=== PATIENT | female | born 1940 | race Caucasian/White ===

== ENCOUNTER 2023-07-18 10:38 | Emergency (ER) | payer MEDICARE, SELFPAY ==
--- NOTE | 2023-07-18 10:55 | USCV_ITS ---
MukundMarie bullard Age: 83 Gender: F : 1940 Exam Date: 07/18/2023 11:16 Ordering Phys: Ashleigh Hui MD Technologist: Johnny Pearson [place]am [place] [facility] [place]ication: red swollen left leg PROCEDURES: Venous duplex imaging was performed in only the left lower extremity. The following venous structures were evaluated: common femoral vein, profunda vein, proximal portion of the greater saphenous vein, superficial femoral vein, and the popliteal vein. In addition, the posterior tibial and peroneal trunk were evaluated. Serial compression, augmentation maneuvers, and spectral Doppler flow evaluation were performed. FINDINGS: Normal 2-D Doppler and augmentation and compressibility throughout the lower extremity venous structures. Additional imaging through the proximal calf veins also reveals no thrombus. Limited evaluation of the greater saphenous vein is patent with no thrombus. There appears to be a complex bakers cyst like area within the left pop fossa. CONCLUSIONS No evidence of left lower extremity DVT. Popliteal cyst measuring 3.8 x 1.4 x 4.8cm with internal debris Tono Montana MD (Electronically Signed) Final Date: 18 July 2023 12:32 S
[2023-07-18 11:44] VITALS: BP 182/96; PULSE 82; RESP 18; TEMP 36.6; O2SAT 92; BMI 40.8
[2023-07-18 12:17] VITALS: BP 139/74; PULSE 62; O2SAT 95
--- NOTE | 2023-07-18 12:17 | ED_ITS ---
HPI - Extremity Problem General: Chief complaint: Extremity Problem,Nontraumatic Stated complaint: left leg pain, red Time Seen by Provider: 07/18/23 12:10 History of Present Illness: 83-year-old female who presents the [facility] room with left distal leg pain redness and swelling. This been present for couple of days now. She has concern for DVT because her mother from a pulmonary embolism she tells me. She had an ultrasound venous duplex of her left leg in the waiting room and this showed no DVT. With further investigation asked her about the scratch that in the midst of this redness and she says her cat had scratched her. No systemic fever. No altered mental status. No chest pain. No cough. No abdominal pain. No nausea or vomiting. Review of Systems Narrative: Constitutional symptoms: Negative except as documented in HPI. Skin symptoms: Negative except as documented in HPI. Eye symptoms: Negative except as documented in HPI. ENMT symptoms: Negative except as documented in HPI. Respiratory symptoms: Negative except as documented in HPI. Cardiovascular symptoms: Negative except as documented in HPI. Gastrointestinal symptoms: Negative except as documented in HPI. Genitourinary symptoms: Negative except as documented in HPI. Musculoskeletal symptoms: Negative except as documented in HPI. Neurologic symptoms: Negative except as documented in HPI. Psychiatric symptoms: Negative except as documented in HPI. Endocrine symptoms: Negative except as documented in HPI. Physical Exam Narrative: EXAM NARRATIVE: General: Alert, no acute distress. Skin: Circumferential area of erythema, edema and warmth covering the bottom half of her left lower leg. There is a scabbed over abrasion in the middle. This appears cellulitic. Head: Normocephalic, atraumatic. Neck: Supple, trachea midline. Eye: Extraocular movements are intact. Ears, nose, mouth and throat: mucosa moist. Cardiovascular: Regular, Normal peripheral perfusion. Respiratory: Lungs are clear to auscultation, respirations are non-labored, radha ath sounds are equal, Symmetrical chest wall expansion. Gastrointestinal: Soft, Nontender, Non distended, Normal bowel sounds. Musculoskeletal: Normal ROM, no deformity. Neurological: Alert and oriented, No focal neurological deficit observed. Psychiatric: Cooperative, appropriate mood & affect. Course Vital Signs: Vital signs: Vital Signs Temperature 97.8 F 07/18/23 11:44 Pulse Rate 82 07/18/23 11:44 Respiratory Rate 18 07/18/23 11:44 Blood Pressure 182/96 07/18/23 11:44 Pulse Oximetry 92 07/18/23 11:44 Oxygen Delivery Me thod Room Air 07/18/23 11:44 MDM - Extremity (Nontraumatic) Medical Decision Making Ultrasound was ordered to rule out DVT. This was negative for DVT. Patient appears to have a cellulitis. This is fairly extensive. I am going to give her a single dose of IV antibiotics here and send her home on Augmentin with instructions to return if she does not improve or worsens All radiology interpretation(s) finalized by discharge Other Data Assessment and plan: - IV Unasyn in the emergency room. Home on Augmentin. - Discharged home - Discussed findings and plan with patient. Answered any questions. - All imaging was reviewed and interpreted personally by myself, the ER physician. - Evaluation and treatment of this problem were appropriate in the emergency setting Discharge Plan Discharge Patient Disposition: Home Clinical Impression: Cellulitis, Cat scratch Condition: Stable Prescriptions: New amoxicillin-pot clavulanate 875-125 mg tablet 1 tab PO BID 10 Days Qty: 20 0RF Discharge Orders: Discharge ED (Routine); Ordered 07/18/23 Ordered By: Ashleigh Hui Discharge Diet: Usual diet Discharge Activity: Resume usual activity Patient Instructions: Cellulitis (ED), Opioid Safety, Pain Management Activity Restrictions/Additional Instructions: Return to your primary provider or to the emergency room if this does not improve after a few days or if it worsens. You have been screened and evaluated and felt safe for discharge. Health conditions do change or evolve sometimes and as such it is important that you follow up with your Primary Doctor to be re checked, 3-5 days is a general good time frame for follow up. You are always welcome to return to the ED for re assessment if your symptoms are worsening or you have new concerns Coding Level of Care Code ED 3Rd Pressman for Ruth Rashid
[2023-07-18] MEDS: ampicillin-sulbactam 3 GM in sodium chloride 0.9% (plus) 50 ML IV (12:28)
--- NOTE | 2023-07-18 12:47 | PC.PHAR ---
pt states she takes care of her own medications-pt states she takes atenolol 100mg daily prn
[2023-07-18 12:54] VITALS: BP 139/74; PULSE 63; O2SAT 99
== END 2023-07-18 12:55 | disposition home or self-care (01) ==
PROVIDERS: Emergency Provider Emergency Medicine
DX: S80.812A Abrasion, left lower leg, initial encounter (principal); L03.116 Cellulitis of left lower limb; W55.03XA Scratched by cat, initial encounter
CPT/HCPCS: 93971; 96365; 99284; J0295

== ENCOUNTER → 2024-05-13 09:42 | Outpatient (BNVA) | payer MEDICARE, SELFPAY | PROVIDERS: PCP Registered Nurse; Visit Provider Student in an Organized Health Care Education/Training Program | DX: M25.561 Pain in right knee (principal); M25.562 Pain in left knee; M17.0 Bilateral primary osteoarthritis of knee | CPT/HCPCS: 73560; 73565 ==

== ENCOUNTER 2024-05-13 10:48 | Outpatient (CLI) | payer MEDICARE, SELFPAY | END 2024-05-13 10:49 | disposition home or self-care (01) | LOC: SPT 10:49 | PROVIDERS: PCP Registered Nurse; Visit Provider Student in an Organized Health Care Education/Training Program | DX: Z46.89 Encounter for fitting and adjustment of other specified devices (principal); M17.0 Bilateral primary osteoarthritis of knee | CPT/HCPCS: L1852 ==

== ENCOUNTER → 2024-07-14 09:30 | Outpatient (BNVA) | payer MEDICARE, SELFPAY | PROVIDERS: PCP Registered Nurse; Visit Provider Physician Assistant | DX: M17.0 Bilateral primary osteoarthritis of knee (principal) | CPT/HCPCS: 20610; 99213; J7318 ==

== ENCOUNTER → 2024-10-26 10:34 | Outpatient (BNVA) | payer MEDICARE, SELFPAY | PROVIDERS: PCP Registered Nurse; Visit Provider Student in an Organized Health Care Education/Training Program | DX: M17.0 Bilateral primary osteoarthritis of knee (principal) | CPT/HCPCS: 99214 ==

== ENCOUNTER 2024-11-04 07:22 | Outpatient (CLI) | payer MEDICARE, SELFPAY ==
[2024-11-04 07:48] LABS: Hematocrit 40.3 % (36-47); Hemoglobin 12.60 g/dL (11.27-16.99); Mean Corpuscular HGB Conc 31.3 g/dL (30-55); Mean Corpuscular Hemoglobin 30.7 pg (27-33); Mean Corpuscular Volume 98.1 fl (85-98); Nucleated Red Blood Cells % 0 %; Platelet Count 280 10^3/cmm (157-399); Red Blood Count 4.11 10^6/uL (3.85-5.65); White Blood Count 8.59 10^3/uL (3.29-11.43)
[2024-11-04 07:49] LABS: Glucose Urine UA Negative (Normal); Nitrate Urine Negative (Negative); Specific Gravity, Urine 1.014 (1.005-1.030)
[2024-11-04 07:54] LABS: Add Urine Microscopic? YES
[2024-11-04 08:07] LABS: Alanine Aminotransferase 10 U/L (0-33); Albumin Level 4.0 g/dL (3.5-5.2); Alkaline Phosphatase 97 U/L (35-105); Aspartate Amino Transferase 19 U/L (0-32); Blood Urea Nitrogen 24 mg/dL (8-23); Calcium 9.6 mg/dL (8.5-10.5); Carbon Dioxide 29 mmol/L (22-29); Chloride 102 mmol/L (98-107); Globulin 3.5 g/dL (1.3-4.6); Glucose 90 mg/dL (65-115); Osmolality Calculated 298 mOsm/kg (285-295); Sodium 142 mmol/L (136-145); Total Protein 7.5 g/dL (6.6-8.7)
--- NOTE | 2024-11-04 08:15 | CT_ITS ---
WS: [id number] CT RIGHT knee, noncontrast HISTORY: RIGHT TOTAL KNEE ARTHROPLASTY TECHNIQUE: Protocol for [facility] total knee replacement has been obtained. This includes axial imaging through the RIGHT hip, RIGHT knee and RIGHT ankle. DLP: 906.83 mGy.cm COMPARISON: None available. Hips: Degenerative air in the SI joints. Minimal narrowing at the hips. No destructive bone lesions. Circumferential calcified plaque in the SFA and deep profunda. RIGHT knee: Tricompartment moderate to severe arthritis. Hypertrophic osteophytes. No fracture. Slight lateral subluxation of the patella. No significant joint effusion. Heavy calcification in the popliteal artery. RIGHT ankle: No acute fractures. 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 CT/CT knee RT [facility] [id number] IMPRESSION: CT imaging provided for [facility] robotic total knee replacement.
== END 2024-11-04 07:23 | disposition home or self-care (01) ==
LOC: RAD 07:24
PROVIDERS: PCP Registered Nurse; Visit Provider Student in an Organized Health Care Education/Training Program
DX: Z01.818 Encounter for other preprocedural examination (principal); M17.11 Unilateral primary osteoarthritis, right knee
CPT/HCPCS: 36415; 73700; 80053; 81001; 85025

== ENCOUNTER 2024-11-12 08:07 | Outpatient (RCR) | payer MEDICARE, SELFPAY | END 2024-12-12 23:59 | disposition home or self-care (01) | LOC: WPT 08:07 | PROVIDERS: PCP Registered Nurse; Visit Provider Student in an Organized Health Care Education/Training Program | DX: Z47.1 Aftercare following joint replacement surgery (principal); Z96.651 Presence of right artificial knee joint | CPT/HCPCS: 97161 ==

== ENCOUNTER → 2024-11-22 10:37 | Outpatient (BNVA) | payer MEDICARE, SELFPAY | PROVIDERS: PCP Registered Nurse; Visit Provider Family Medicine | DX: Z01.818 Encounter for other preprocedural examination (principal); R00.1 Bradycardia, unspecified; I44.0 Atrioventricular block, first degree | CPT/HCPCS: 93005 ==

== ENCOUNTER 2024-12-06 14:02 | Observation (INO) | payer MEDICARE, SELFPAY ==
[2024-12-06] VITALS (16 sets, daily range): BP systolic 100–142; BP diastolic 48–78; PULSE 55–71; RESP 16–19; TEMP 36.4–37.4; O2SAT 88–98; BMI 39.4
--- NOTE | 2024-12-06 09:15 | P.ANESASSM_ITS ---
Pre-Anesthetic Assessment Height/Weight: Height 5 ft 2 in Preop Diagnosis: knee arthritis Operation Date: 12/06/24 11:35 Proposed Procedures p Mitchell Robot Total Knee Arthroplasty(Right) - Nas Roman DO Was Beta Robert taken within 24 hours: Yes Was Clonidine taken within 24 hours: N/A Social Tobacco and No alcohol Exam alert, oriented x 3, clear to auscultation bilaterally and regular rate & rhythm Airway Submandibular: within normal limits Cervical ROM: within normal limits Mallampati: Class II Dentition: false Anesthetic Plan ASA status: 3 Anesthesia: General Other: No prior issues with anesthesia NPO since yesterday evening History of hypertension on amlodipine and atenolol Denies any pulmonary issues Labs reviewed and acceptable for procedure EKG sinus bradycardia with first-degree AV block Plan for general anesthesia Medications/Allergies Home Medications ?Medication ?Instructions ?Recorded ?Confirmed ?Last Taken ?Type amlodipine 5 mg tablet 5 mg PO QAM 07/18/23 5 12/06/24 History atenolol 100 mg tablet 100 mg PO DAILY PRN Blood Pr essure 07/18/23 12/06/24 12/06/24 History dorzolamide 22.3 mg-timolol 6.8 1 drp ophthalmic (eye) BID 07/18/23 12/02/24 Unknown History mg/mL eye drops latanoprost 0.005 % eye drops 1 drp ophthalmic (eye) B EDTIME 07/18/23 12/02/24 12/01/24 History oxybutynin chloride 5 mg tablet 5 mg PO TID PRN unknow n 07/18/23 12/02/24 11/22/24 History propylene glycol 0.6 % eye drops 1 drp ophthalmic (eye ) QID 07/18/23 12/02/24 Unknown History (Systane Complete) Left and Right Knee Medial #1 ea 05/13/24 10/26/24 Unk nown Rx Hospital Admissions Officer Brace bupropion HCl 150 mg 24 hr tablet, 150 mg PO DAILY 06/0812/02/24 11/25/24 History extended release Allergies Allergy/AdvReac Type Severity Reaction Status Date / Time fexofenadine (From Kirti) Allergy Unresponsiv Verified 12/02/24 14:27 e loratadine (From Claritin) Allergy Unresponsiv Verified 12/02/24 14:27 e [facility] Anesthesia Social History Smoking and tobacco/nicotine status: never used tobacco/nicotine Data Anesthesia 12/06/24 09:25 12/06/24 09:25
[2024-12-06] MEDS: acetaminophen 1,000 MG/100 ML PIGGYBACK 400 MG IV ×2 (09:38→17:10)
[2024-12-06 09:42] LABS: Hematocrit 40.7 % (36-47); Hemoglobin 13.00 g/dL (11.27-16.99); Mean Corpuscular HGB Conc 31.9 g/dL (30-55); Mean Corpuscular Hemoglobin 30.7 pg (27-33); Mean Corpuscular Volume 96.2 fl (85-98); Nucleated Red Blood Cells % 0 %; Platelet Count 274 10^3/cmm (157-399); Red Blood Count 4.23 10^6/uL (3.85-5.65); White Blood Count 9.00 10^3/uL (3.29-11.43)
[2024-12-06 09:56] LABS: Anion Gap 17.1 (5-19); Blood Urea Nitrogen 19 mg/dL (8-23); Calcium 9.7 mg/dL (8.5-10.5); Carbon Dioxide 27 mmol/L (22-29); Chloride 102 mmol/L (98-107); Creatinine Clr Calc Pharmacy 55.0378; Glucose 115 mg/dL (65-115); Osmolality Calculated 297 mOsm/kg (285-295); Potassium 4.1 mmol/L (3.5-5.1); Sodium 142 mmol/L (136-145)
--- NOTE | 2024-12-06 10:10 | W.PM.OPSFHP ---
Same Day Surgery H&P Indication for Procedure/HPI DATE OF PROCEDURE: December 06, 2024 CHIEF COMPLAINT/INDICATIONFOR SURGICAL PROCEDURE: Right knee DJD PREOP DIAGNOSIS: Right knee DJD PLANNED PROCEDURE: Operation Date: 12/06/24 11:35 Proposed Procedures p Mitchell Robot Total Knee Arthroplasty(Right) - Nas Roman, DO Medications/Allergies* Home Medications ?Medication ?Instructions ?Recorded ?Confirmed ?Type amlodipine 5 mg tablet 5 mg PO QAM 07/18/23 12/06/24 History atenolol 100 mg tablet 100 mg PO DAILY PRN Blood Pressure 07/18/23 12/06/24 History dorzolamide 22.3 mg-timolol 6.8 1 drp ophthalmic (eye) BID 07/18/23 12/02/24 History mg/mL eye drops latanoprost 0.005 % eye drops 1 drp ophthalmic (eye) BEDTIME 07/18/23 12/02/24 History oxybutynin chloride 5 mg tablet 5 mg PO TID PRN unknown 07/18/23 12/02/24 History propylene glycol 0.6 % eye drops 1 drp ophthalmic (eye) QID 07/18/23 12/02/24 History (Systane Complete) bupropion HCl 150 mg 24 hr tablet, 150 mg PO DAILY 07/14/24 12/02/24 History extended release Allergies/Adverse Reactions Allergy/AdvReac Type Severity Reaction Status Date / Time fexofenadine (From Kirti) Allergy Unresponsiv Verified 12/02/24 14:27 e loratadine (From Claritin) Allergy Unresponsiv Verified 12/02/24 14:27 e Current Medications: Generic Name Dose Route Start Last Admin Trade Name Freq PRN Reason Stop Dose Admin Sodium Chloride 1,000 mls @ 30 mls/hr 12/06/24 08:45 12/06/24 09:34 Sodium Chloride 0.9% IV 12/07/24 08:44 30 mls/hr .Q24H GUTIERREZ Administration Pertinent History/Comorbid Conditions* Social History Smoking and tobacco/nicotine status: never used tobacco/nicotine Pertinent Exam Findings alert, oriented x 3, operative site marked and procedure specific exam findings Please refer to degenerative examination on 10/26/2024 listed below: Bilateral Knee Exam: ROM 0 to greater than 120 degrees Patellar crepitus with ROM Medial joint line tenderness to palpation Lateral joint line tenderness to palpation Mild joint effusion Negative Kasey's, but pain noted Negative Raphael's 10 degrees of Varus malalignment, correctable on exam Stable Varus and Valgus stress Gross motor sensory intact Crepitus underneath the patella on knee range of motion Recommendations Risks and benefits of procedure reviewed and Patient/family agree to proceed Surgery/Procedure today Other Plans: Plan to proceed to the OR today for right total knee arthroplasty?Mitchell robotic assisted. Patient is cleared the preoperative clearance process and ready proceed with right total knee arthroplasty Mitchell robotic assisted. Understands incidence procedure risk benefits complication alternatives surgical nonsurgical treatment options. All question at this time. No change in health since the last clinical visit or with Dr. Corona no was injected the knee since our last injection back on 07/14 which she is over 90 days out. Also of note she does have a bruise on the lower rivers which she had hit this on a truck bed there is no open wound or any signs of infection at this time okay to proceed with surgical invention. Patient family understand agree with current plan. Questions answered. Coding Level of Care Code Acute Code for Ruth Rashid
[2024-12-06] MEDS: ceFAZolin 2,000 MG in sodium chloride 0.9% (plus) 50 ML 100 MG IV ×2 (11:29→17:54)
[2024-12-06] MEDS: tranexamic acid 1,000 mg/10mL SDV 1000 MG IV (11:45)
[2024-12-06] MEDS: tranexamic acid 1,000 mg/10mL SDV 1000 MG XX (12:42)
[2024-12-06] MEDS: ROPivacaine 0.2% Premix 100 mL 200 MG INTRA-ARTI (12:42)
--- NOTE | 2024-12-06 13:45 | P.OP_ITS ---
Operative Report Date of procedure: December 06, 2024 Surgeon: Nas Roman DO Power System Dispatcher: Germán Roman PA-C: PA was necessary for assistance in this case with leg positioning retraction and protection of neurovascular structures as well as assistance in implantation wound closure and dressing application. Procedure: Preoperative diagnosis: Right knee degenerative joint disease post-op diagnosis: Same Procedure done: Right total knee arthroplasty, cemented?robotic assisted Mitchell Implants: [place] triathlon size 3 femur CR cemented?right [place] triathlon size? 3 tibia universal baseplate cemented Bharat triathlon symmetric patella size 31 mm Bharat triathlon polyethylene 12 mm Surgeon: Nas Roman DO Estimated blood loss: 125 mL Tourniquet 6minutes IV fluids: 1000 mL Urine output: 100mL Complications: None Condition: stable Disposition: floor Brief History: Patient is a 84-year-old female with with chronic?right knee degenerative joint disease.? Patient has been worked up in the outpatient setting in the orthopedic office at this point time through shared decision making given [id number] arthritis as well as failed conservative treatment, and pt would like to proceed with a?right total knee arthroplasty.? Through shared decision making elected to proceed with surgical intervention for?right total knee arthroplasty with Mitchell robotic assisted.? We talked about continued conservative treatment and surgical intervention as far as the?risk benefits complications alternatives surgical and nonsurgical treatment options.? At this point time understanding patient?risks with surgery patient agrees to proceed with surgical intervention.? Once again??risk with surgery include but are not limited to make it better make it worse blood clot, heart attack, stroke, on the table, infection, injury to nerves or vessels, persistent pain, arthrofibrosis, implant failure.? Understanding these?risks patient agrees to proceed with surgical intervention consent was obtained in the preoperative holding area.? All questions answered. Procedure: Patient was seen and evaluated in the preoperative holding area.? Consent was?re viewed and signed with patient with plan for?right total knee arthroplasty.? All questions answered.? Correct extremity marked.? Patient seen and evaluated by the anesthesia department and once cleared for surgery was taken back to the operative suite.? Patient was placed into a supine position on the OR table.? All bony prominences were well-padded.? Patient was appropriately secured to the bed.? Patient underwent anesthesia per the anesthesia department.? Patient?received anesthesia and? Lao catheter was placed.? A nonsterile tourniquet was applied to the?right thigh.? At this point in time a final timeout performed.? Patient?received appropriate preoperative antibiotics and TXA. Next the?right lower extremity was then prepped and draped in standard orthopedic fashion. Esmarch tourniquet was used exsanguinate the?right lower extremity.? Tourniquet was insufflated to 300 mmHg. A standard anterior incision was made over midline of the knee.? Sharp scalpel excision through skin and subcutaneous tissue full-thickness skin flaps were made.? Fascia was elevated off of the extensor?retinaculum was stable with medial parapatellar arthrotomy was then made.? The performed standard s equential?releases..? Immediately on entry into the joint patient was found to have severe eburnated bone and tricompartmental arthritic changes noted. Patient has severe varus deformity, with significant osteophyte formation.? Next the the patella was then stuffed and the knee was then flexed.?? After just 6 minutes with tourniquet being up it was found to be a venous tourniquet and it was subsequently left down throughout the entirety of the case. Doug was placed superiorly around the anterior aspect of the femur this was freed of synovium and I subsequently then placed by 2 femur pins to establish my femur arrays for the [employer]?robot.? These were then placed bicortically and? femur array was then appropriately secured with appropriate visualization.? Next attention was turned towards the tibial?rays.? These were then drilled sequentially bicortically in parallel fashion and intraincisional.? I then placed my guide as well as my tibial array on in place.? This was appropriately secured and had excellent visualization with the Mitchell?robot.? Next the tibial checkpoint as well as femur checkpoint were then placed.? At this point time I then subsequently established my head center as well as my medial lateral malleoli as well as my checkpoints.? Next utilizing standard Mitchell technology I then mapped out the appropriate points and confirmation points around the femur as well as the tibia in standard fashion.? Once this was then done I then?removed all osteophytes in preparation for dynamic testing.? All osteophytes were?removed as well as I?removed the ACL and the PCL was excised due to its significant tearing and degeneration noted.? At this point time the knee was brought into full extension and we performed our standard evaluation of our gap balancing stressing his ligaments and extension as well as flexion appropriate adjustments were made to have appropriate gap balancing in both flexion and extension.? This plan for final cuts, we are able to correct patient's varus deformity within patient's ligamentous tolerances.? We get a preoperative plan evaluating our implants which was a size 3 femur and a size 3 tibia.? Next we brought in the [employer]?robot and sequentially made our femur cuts.? All excess bony cuts were then?removed.? Finally we made our tibial cut.? Once this was done a standard PCL?retractor was then placed into this position I excised the medial and lateral meniscus.? The tibial cut was then subsequently?removed all excess bony debris was?removed.? I then utilized a lamina bitumastic applier and?remove the posterior osteophytes.? At this point time sized the tibia and confirmed this was a size 3.? I utilized our blunt probe to establish?rotation of tibial implant.? Once this was done I then placed my tibia size 3 trial in appropriate position and then subsequently placed tibial pins to hold this into place placed and trialed up to a size 12 mm poly as well as a size 3 femur which was appropriately impacted in place knee was then subsequen tly brought into extension. Trials were then assessed, this was stable with varus valgus stress in extension as well as flexion.? This was stable with varus valgus stress in extension as well as had symmetrical translation when brought into flexion demonstrating symmetrical gaps. I had excellent balance gaps in flexion and extension with varus and valgus stresses.? At this point I was satisfied with these implants these were then verified and opened on the back table size 3 tibia, size3 femur,? size 12 mm polythickness.? We did confirm appropriate gap balancing and stresses as well as alignment utilizing? Mitchell and were satisfied with this plan.? ?At this point time with my trials in place I then towel clip the patella everted this made appropriate measurements subsequently utilizing freehand technique performed by patellar?resurfacing this was confirmed to be appropriate?resection and subsequently sized to be a 31 mm symmetric.? My drill peg guides were then clamped and appropriate position and appropriate position in the patella for appropriate tracking and parallel with the joint.? Pegs were drilled trial implant was placed and the knee was then subsequently?ranged and found to have excellent patellar tracking.? Femur pegs were then drilled.?? At this point time all of our trial implants were?removed.? All checkpoints as well as guidepins and arrays were?removed and appropriate counts made.? Satisfied with our tibial placement?rotation I then utilized the keel punch and prepped the tibia. The wound bed? was thoroughly irrigated and dried and prepped for cementation.? Cement was mixed on the back table.? Once cement was?ready this was then covered onto the tibia and the tibial baseplate was then impacted and all excess cement was?removed.? Next the polyethylene was then impacted into place on the tibial baseplate.? Next cement was placed onto the femur as well as under the femur implants and impacted in to place and all excess cement was extruded and?removed.? Knee was taken into full extension? to clear all excess cement was?removed.? Warm saline was placed over the joint.? I then towel clip patella and dried for cementation. cemented the patella into place.? This was all clamped and the cement was allowed to cure.? Thorough irrigation performed with pulse lavage.? I then placed my periarticular injection while the cement was curing.? Once cured the knee was taken through?range of motion and had excellent stability and gaps were balanced in flexion and extension.? hemostasis satisfactory with electrocautery.? Next I then subsequently closed the capsule with Ethibond suture as well as a?running strata fix suture.? Knee was then taken through?range of motion 30 times.? Next the skin was then closed in layered fashion of?running stratifix sutures of deep and subcutenous tissue and skin.? ?closed in flexion and skin incision closed with pernell incision was covered with osiel incisional VAC dressing, with ABDs soft?roll and Mingo wrap.? Patient was then awakened from anesthesia and taken to PACU in stable condition. Disposition: Patient taken to PACU in stable condition will be admitted to the floor for pain control PT/OT weight-bear as tolerated?right lower extremity dressing changes as needed, DVT prophylaxis. Pain control. Patient will?receive appropriate postoperative antibiotics. patient will be seen today by the internal medicine team for medical management.? Patient will follow up with the office in 2 weeks.? Patient understands agrees with current plan.? All questions answered.
--- NOTE | 2024-12-06 13:59 | XR_ITS ---
WS: [id number] Exam: XR knee RIGHT 1-2V [id number] Date/Time of Exam: 12/06/2024 1:59 PM Reason For Exam: POST OP A RIGHT total knee arthroplasty is in place in satisfactory alignment. Postop changes in the adjacent soft tissues. Anterior surgical skin clips. XR/XR knee LT 1-2V [id number] IMPRESSION: 1. RIGHT total knee replacement in satisfactory position.
--- NOTE | 2024-12-06 14:13 | W.PM.BPON ---
Date of Procedure: [December 06, 2024] Surgeon: [Dr. Roman DO] Appliance Mechanic(s): [Germán Roman PA-C] Procedure(s) performed: [Right knee total arthroplasty with Mitchell robotic assist] Findings of the procedure(s): [Right knee degenerative joint disease. Procedure went well as planned] Estimated blood loss: [125 ml] Specimen(s) removed: [Femur and patella shavings] Post-operative diagnosis: [Right knee degenerative joint disease]
--- NOTE | 2024-12-06 14:20 | PM.PACU ---
PACU note Narrative: Patient is an 84-year-old female who just underwent a right total knee arthroplasty. Pt transferred to PACU in stable condition. Dressing is dry. pt is awake and alert. pt can wiggle toes and plantarflex and dorsiflex foot. pt able to perform straight leg raise, Femoral nerve intact. Distal pulses are palpable toes are warm and well-perfused. Cap refill is normal and under 2 seconds. Sensation to foot is intact. Pain is controlled. Exam: awake Disposition: discharged
--- NOTE | 2024-12-06 14:24 | ANE.PACU2 ---
Inpatient post-anesthesia follow up: Airway intact: Yes Vital signs: Temperature 99.3 F Pulse Rate 68 Respiratory Rate 17 Blood Pressure 122/70 Pulse Oximetry 93 Oxygen Delivery Me thod Nasal Cannula Oxygen Flow Rate 2 Fraction of Inspir ed Oxygen Hydration adequate: Yes Nausea and vomiting: No Pain level: 1 Mental status: Baseline
[2024-12-06] MEDS: oxyCODONE 5 mg IR Tab/Cap PO ×2 (15:42→21:21)
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
[2024-12-06] MEDS: chlorhexidine gluconate 0.12% Btl 473 mL 30 ML MUCOUS MEM ×2 (17:14→21:20)
[2024-12-06] MEDS: tranexamic acid 1,000 MG/100 ML PREMIX 600 MG IV (19:29)
[2024-12-06] MEDS: mupirocin oint 22 gm 1 APPLIC NASAL (19:29)
[2024-12-06] MEDS: sennosides-docusate Tablet 2 TAB PO (19:29)
[2024-12-06] MEDS: calcium carb-vit d 600mg/400unit 1 Tablet 1 EACH PO (19:29)
[2024-12-06] MEDS: dorzolamide/timolol Op Soln 10 mL Btl 1 DROP EYE-BOTH (19:30)
--- NOTE | 2024-12-06 20:25 | XRR_ITS ---
PROCEDURE INFORMATION: Exam: XR Right Hip Exam date and time: 12/06/2024 8:34 PM Age: 84 years old Clinical indication: Injury or trauma; Fall; Blunt trauma (contusions or hematomas); Right; Pelvic region; Additional info: Fall prior to admission, right hip pain TECHNIQUE: Imaging protocol: Radiologic exam of the right hip. Views: 1 view hip with pelvis when performed. COMPARISON: No relevant prior studies available. FINDINGS: Bones/joints: Unremarkable. No acute fracture. Soft tissues: Unremarkable. Vasculature: Atheromatous vascular calcifications. XR/XR hip RT 2-3V wo/w pel* [id number] IMPRESSION: No definite acute fracture, subluxation, dislocation.
--- NOTE | 2024-12-06 23:09 | PC.NURSE ---
THIS RN RECEIVED IN REPORT THAT PATIENT HAD NOT BEEN WALKED BY PT TODAY. PATIENT ALSO REPORTS TO HAVE FALLEN ON HIP PRIOR TO SURGERY AND DID NOT MENTION TO DR. LEI. PATIENT REPORTS TO FEEL PAIN IN HIP WELL KNEE AND PRIOR TO SURGERY RATES PAIN WHEN WALKING 8/10 AND WHILE LAYING IN BED PAIN IS 5/10 IN HIP CURRENTLY. THIS RN PLACED CALL TO DR. LEI AT 2019 TO NOTIFY OF PATIENT COMPLAINT. AT THIS TIME DR. LEI ORDERED X-RAY FOR PATIENT RIGHT HIP TO ENSURE THAT IT WAS OKAY PRIOR TO AMBULATING PATIENT. AT 2102 THIS RN PLACED CALL TO DR. LEI TO REPORT THE RESULTS OF THE X-RAY BEING THAT NOTHING WAS ABNORMAL. ORDERS TO PROCEED WITH AMBULATING PATIENT.
--- NOTE | 2024-12-06 23:14 | PC.NURSE ---
[id number] THIS RN AMBULATED THE PATIENT FROM THE BED TO END OF HALLWAY AND BACK. PATIENT TOLERATED ACTIVITY WELL.
--- NOTE | 2024-12-06 23:17 | PC.NURSE ---
ON ASSESSMENT AT 1999 THIS RN NOTES THAT PATIENT HAS HAD LEFT BREAST REMOVAL. PATIENT REPORTS THAT THIS HAPPENED IN 2001. ALSO NOTED IS THAT THE PATIENT HAS SIGNIFICANT LYMPHEDEMA IN LEFT ARM.
[2024-12-07] MEDS: acetaminophen 1,000 MG/100 ML PIGGYBACK 400 MG IV ×2 (00:50→09:10)
[2024-12-07 00:58] VITALS: BP 128/69; PULSE 47; RESP 16; TEMP 36.5; O2SAT 98
--- NOTE | 2024-12-07 01:27 | PC.NURSE ---
ICE PACKS CHANGED AT 2200 ON 12/06/24
[2024-12-07] MEDS: ceFAZolin 2,000 MG in sodium chloride 0.9% (plus) 50 ML 100 MG IV ×2 (01:53→09:11)
[2024-12-07 05:11] VITALS: BP 125/62; PULSE 52; RESP 16; TEMP 36.5; O2SAT 96
[2024-12-07 05:14] LABS: Hematocrit 31.9 % (36-47); Hemoglobin 10.20 g/dL (11.27-16.99); Mean Corpuscular HGB Conc 32.0 g/dL (30-55); Mean Corpuscular Hemoglobin 31.4 pg (27-33); Mean Corpuscular Volume 98.2 fl (85-98); Nucleated Red Blood Cells % 0 %; Platelet Count 209 10^3/cmm (157-399); Red Blood Count 3.25 10^6/uL (3.85-5.65); White Blood Count 13.47 10^3/uL (3.29-11.43)
[2024-12-07 05:30] LABS: Blood Urea Nitrogen 13 mg/dL (8-23); Calcium 8.6 mg/dL (8.5-10.5); Carbon Dioxide 26 mmol/L (22-29); Chloride 104 mmol/L (98-107); Creatinine Clr Calc Pharmacy 55.0378; Glucose 122 mg/dL (65-115); Osmolality Calculated 287 mOsm/kg (285-295); Sodium 138 mmol/L (136-145)
[2024-12-07 05:34] LABS: Anion Gap 12.0 (5-19); Potassium 4.0 mmol/L (3.5-5.1)
[2024-12-07 06:43] VITALS: PULSE 45; O2SAT 96
[2024-12-07 09:09] VITALS: BP 122/56; PULSE 63; RESP 18; TEMP 36.4; O2SAT 95
[2024-12-07] MEDS: calcium carb-vit d 600mg/400unit 1 Tablet 1 EACH PO (09:12)
[2024-12-07] MEDS: multivitamin therapeutic Tablet 1 TAB PO (09:12)
[2024-12-07] MEDS: sennosides-docusate Tablet 2 TAB PO (09:14)
[2024-12-07] MEDS: APIXABAN 2.5 MG TABLET PO (09:14)
[2024-12-07] MEDS: dorzolamide/timolol Op Soln 10 mL Btl 1 DROP EYE-BOTH (09:15)
[2024-12-07] MEDS: mupirocin oint 22 gm 1 APPLIC NASAL (09:15)
[2024-12-07] MEDS: chlorhexidine gluconate 0.12% Btl 473 mL 30 ML MUCOUS MEM (09:15)
--- NOTE | 2024-12-07 10:51 | P.PN_ITS ---
Subjective 2 Subjective: seen this morning no acute events overnight earlier this morning HR 45 but pt was asleep HR now in 60's Vitals/I&O/Wt Last Vital Signs Temp 97.5 F L 12/07/24 09:09 Pulse 63 12/07/24 09:09 Resp 18 12/07/24 09:09 BP 122/56 12/07/24 09:09 Pulse Ox 95 12/07/24 09:09 O2 Del Method Room Air 12/07/24 09:09 O2 Flow Rate 2 12/07/24 05:11 12/06/24 12/07/24 12/07/24 22:59 06:59 14:59 Intake Total 150 / 400 608.5 / 1008.5 Output Total 900 / 1125 200 / 1325 300 / 300 Balance -750 / -725 408.5 / -316.5 -300 / -300 Weight last 48 hrs Weight 94.801 kg Physical Exam 2 Narrative: Patient is awake and alert. Able to provide history. Extraocular movements are intact. Oral mucosa is moist. Neck is large but supple. Lungs are clear to auscultation bilaterally. Cardiovascular exam reveals a regular rhythm. Abdomen is soft. Right lower extremity with postsurgical dressings intact. Ice pack is on the knee. Foot pump in place. Moves toes and sensation intact to right foot. Family member present at bedside Urinary Catheter Management: Bourgeois Latex: Cath Placed During This Visit: yes, but has since been removed by the nurse Reason for Continuing Indwelling Catheter: Decision to DC Catheter Date Urinary Catheter Removed: 12/07/24 Time Urinary Catheter Discontinued: 00:50 Data 12/07/24 05:08 12/07/24 05:08 A&P Assessment and plan 1. Status post total right knee replacement using cement: POD 0 from surgery as per Dr Roman. Did well. - General anesthesia - Pain control - On cefazolin post-op regimen, s/p vancomycin x one dose - S/P tranexamic acid - Has bourgeois with orders to remove - Has SCDs and orders for eliquis to start in am - Stool softeners, laxatives as needed - PT to see - Plan is for home with home health tomorrow if remains stable. Her twin sister who lives nearby will be staying with her. 2. Right hip pain: Recent fall at home, landing on right hip, resolving bruise laterally and posteriorly. Says Right hip currently Bothering her more than right knee. - Ask her to let both PT and Dr Roman know about the fall/right hip pain - Encouraged proper use of walker after discharge (has been using 2 canes) 3. Primary hypertension: Chronically on Amlodipine and Atenolol. Takes entire amlodipine as prescribed. She cuts the atenolol in quarters and only takes a quarter or one half of a tablet usually (25-50mg). Rarely if ever takes entire pill. - Continue home amlodinpine dosing - Will continue home atentolol at 25 mg daily for now - Will write a new prescription at discharge for 50 mg tablets so she can take either a half or a whole tablet rather than trying to cut 100 mg tablet into quarters which is not going to lead to consistent dosing 4. Overactive bladder: Chronically on oxybutynin - Continue home dosing 5. Macular degeneration of both eyes, unspecified type: Chronically on dorzolamide/timolol, latanoprost, Systane - Continue home eyedrops Plan: VTE prophylaxis: Eliquis to start in am; scds currently Antibiotics: perioperative ordered Pending studies: am labs Telemetry: not currently indicated Bourgeois: orders to remove in place Line(s): peripheral IVs Disposition plan: Home with outpatient follow up and PT as per discharge plan arranged prior to elective surgery. Twin sister will stay with her as needed. Will need follow-up PCP for blood pressure check and medication review. Code Status: Full Code Supportive care otherwise Plans as noted were discussed with patient and she was given an opportunity to ask questions 12/06/2024 reviewed chart patient doing well this morning She takes atenolol at home as a quarter tablet (25 mg daily) continue home meds as prescribed dorzolamide-timolol and latanoprost bedtime oxybutinin chloride 5, TID PRn leukocytosis reactive 13K, repeat CBC as outpatient anticoagulation/dvt ppx per ortho -on eliquis 2.5 BID, continue post op mgmt per surgical team PDMP PDMP Reviewed: Not Reviewed Attestations 2 Medical Necessity Statement*: defer to primary team Diagnoses Status post total right knee replacement using cement Z96.651 Right hip pain M25.551 Primary hypertension I10 Hypertension type: primary hypertension Overactive bladder N32.81 Macular degeneration of both eyes, unspecified type H35.30 Eye laterality: bilateral Macular degeneration type: unspecified type
--- NOTE | 2024-12-07 11:43 | PM.DCS ---
Discharge Providers Date of Admission: 12/06/24 14:02 Date of Discharge: December 07, 2024 Attending Provider at Admission: Nas Roman DO Attending Provider at Discharge: Nas Roman DO Consults: Hospitalist?Dr. Handley Primary Care Provider: Brandi Cortez Diagnoses at Discharge Discharge Diagnosis 1. Status post total right knee replacement using cement: 2. Right hip pain: 3. Primary hypertension: 4. Overactive bladder: 5. Macular degeneration of both eyes, unspecified type: Reason for Visit Reason for Visit: M17.11 Brief History: Status post right total knee arthroplasty?Mitchell robotic assisted Hospital Course Hospital Course Patient presented to the preoperative holding area with plan for right total knee arthroplasty after patient has been worked up in the outpatient setting for failed conservative treatment of [right] knee degenerative joint disease. Once cleared by anesthesia for surgery patient subsequently was taken back to the operative suite underwent anesthesia per anesthesia department and then subsequently underwent a [right] total knee arthroplasty. Procedure was performed without any complications patient was taken to PACU in stable condition patient recovered well in PACU and then was admitted to the floor postoperatively internal medicine was consulted and on board for medical management and assistance with care. Patient received appropriate PT/OT, postoperative antibiotics, postoperative TXA, pain control, postoperative DVT prophylaxis. Elevation and ice. Patient encouraged for knee range of motion allowed weightbearing as tolerated to the operative lower extremity. Dressing was changed as needed, labs were monitored daily. Patient recovered well postoperatively and worked well and progressed well with therapy. It was determined on postoperative day 1 the patient was stable for discharge from an orthopedic standpoint and medicine. Patient was comfortable with discharge and plan was discharged home. Patient received appropriate discharge instructions as well as pain medication and DVT prophylaxis postoperatively. Given appropriate instructions for dressing management. Patient will follow-up with Dr. Roman/orthopedics in the office in 2 weeks. All questions answered. Understand if there is any issues questions or concerns and contact the office. Physical Exam Narrative: Right knee examination: Dressing on in place, clean dry and intact. No evidence of saturation. Patient has normal postoperative swelling and tenderness to palpation to the knee. Compartments are soft compressible,'s calf soft and nontender. Sensations intact to light touch distally. Distal pulses are palpable. Patient is able to wiggle toes as well as plantarflex and dorsiflex ankle. Urinary Catheter Management: Lao Latex: Cath Placed During This Visit: yes, but has since been removed by the nurse Reason for Continuing Indwelling Catheter: Decision to DC Catheter Date Urinary Catheter Removed: 12/07/24 Time Urinary Catheter Discontinued: 00:50 Discharge Data Studies Completed and Pending Completed Studies During Hospitalization Category Date Time Status XR hip RT 2-3V wo/w pel* [id number] Stat Exams 12/06/24 20:25 Completed XR knee LT 1-2V [id number] Routine Exams 12/06/24 13:59 Completed Pending at discharge Category Date Time Status Basic Metabolic Panel AM LABS Lab 12/08/24 04:00 Ordered Basic Metabolic Panel AM LABS Lab 12/09/24 04:00 Ordered Complete Blood Count w/Auto AM LABS Lab 12/08/24 04:00 Ordered Complete Blood Count w/Auto AM LABS Lab 12/09/24 04:00 Ordered Radiology Impressions Knee X-Ray 12/06/24 13:59 IMPRESSION: 1. RIGHT total knee replacement in satisfactory position. Hip/Pelvis X-Ray 12/06/24 20:25 IMPRESSION: No definite acute fracture, subluxation, dislocation. Laboratory Results WBC 13.47 10^3/uL (3.29-11.43) H 12/07/24 05:08 RBC 3.25 10^6/uL (3.85-5.65) L 12/07/24 05:08 Hgb 10.20 g/dL (11.27-16.99) L 12/07/24 05:08 Hct 31.9 % (36-47) L 12/07/24 05:08 MCV 98.2 fl (85-98) H 12/07/24 05:08 MCH 31.4 pg (27-33) 12/07/24 05:08 MCHC 32.0 g/dL (30-55) 12/07/24 05:08 RDW 13.2 % (12.1-15.1) 12/07/24 05:08 Plt Count 209 10^3/cmm (157-399) 12/07/24 05:08 MPV 10.5 fL (7.4-10.4) H 12/07/24 05:08 Neut % (Auto) 84.1 % 12/07/24 05:08 Lymph % (Auto) 7.7 % 12/07/24 05:08 Lucas % (Auto) 7.3 % 12/07/24 05:08 Eos % (Auto) 0.1 % 12/07/24 05:08 Baso % (Auto) 0.2 % 12/07/24 05:08 Neut # (Auto) 11.32 10^3/uL (1.8-7.7) H 12/07/24 05:08 Lymph # (Auto) 1.0 10^3/uL (0.8-4.8) 12/07/24 05:08 Lucas # (Auto) 1.0 10^3/uL (0.2-0.9) H 12/07/24 05:08 Eos # (Auto) 0.0 10^3/uL (0.0-0.8) 12/07/24 05:08 Baso # (Auto) 0.0 10^3/uL (0.0-0.1) 12/07/24 05:08 Nucleated RBC % (auto) 0 % 12/07/24 05:08 Nucleated RBCs # 0.0 /100WBC 12/07/24 05:08 Sodium 138 mmol/L (136-145) 12/07/24 05:08 Potassium 4.0 mmol/L (3.5-5.1) 12/07/24 05:08 Chloride 104 mmol/L (98-107) 12/07/24 05:08 Carbon Dioxide 26 mmol/L (22-29) 12/07/24 05:08 Anion Gap 12.0 (5-19) 12/07/24 05:08 BUN 13 mg/dL (8-23) 12/07/24 05:08 Creatinine 0.5 mg/dL (0.5-0.9) 12/07/24 05:08 GFR Calculation Not Reportable 12/07/24 05:08 Glucose 122 mg/dL (65-115) H 12/07/24 05:08 Calculated Osmolality 287 mOsm/kg (285-295) 12/07/24 05:08 Calcium 8.6 mg/dL (8.5-10.5) 12/07/24 05:08 Blood Type O Positive 12/06/24 09:25 Rho(D) Type Rh positive 12/06/24 09:25 Antibody Screen Negative 12/06/24 09:25 Vitals Last Vital Signs Temp 97.5 F L 12/07/24 09:09 Pulse 63 12/07/24 09:09 Resp 18 12/07/24 09:09 BP 122/56 12/07/24 09:09 Pulse Ox 95 12/07/24 09:09 O2 Del Method Room Air 12/07/24 09:09 O2 Flow Rate 2 12/07/24 05:11 Discharge Plan Discharge Patient Disposition: Home Condition: Stable Prescriptions: New Eliquis 2.5 mg tablet 2.5 mg PO BID 14 Days Qty: 28 0RF atenolol 50 mg tablet 50 mg PO DAILY Qty: 30 0RF Rx Instructions: Take 1/2 tab daily for SBP (top number) >120; Take whole tab daily for SBP >/=150 cefadroxil 500 mg capsule 500 mg PO BID 7 Days Qty: 14 0RF oxycodone 5 mg tablet 5 mg PO Q6H PRN (Reason: pain postop) 7 Days Qty: 28 0RF calcium carbonate-vitamin D3 [Calcium 600 + D(3)] 600 mg-10 mcg (400 unit) tablet 1 tab PO DAILY 30 Days Qty: 30 0RF Continued (DME) Left and Right Knee Medial 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 See Rx Instructions .Route .MEDSUPPLY Qty: 1 0RF Rx Instructions: As directed bupropion HCl 150 mg tablet extended release 24 hr 150 mg PO DAILY latanoprost 0.005 % drops 1 drp ophthalmic (eye) BEDTIME amlodipine 5 mg tablet 5 mg PO QAM dorzolamide-timolol 22.3-6.8 mg/mL drops 1 drp ophthalmic (eye) BID Rx Instructions: right eye oxybutynin chloride 5 mg tablet 5 mg PO TID PRN (Reason: unknown) Systane Complete 0.6 % Drops 1 drp ophthalmic (eye) QID Discontinued atenolol 100 mg tablet 100 mg PO DAILY PRN (Reason: Blood Pressure) Business Functional Analyst OK for DC: Hospitalist Discharge Order = DC NOW: Discharge Order (Routine); Ordered 12/07/24 Ordered By: Nas Roman Other Ambulatory Orders: Physical Therapy Eval and Treat Outpatient (Order) Timeframe: 3 Days Facility: [facility] - Location: Physical Therapy [place] Ordered By: Nas Roman Referrals: [facility] Outpatient Therapy [Outside] - 12/09/24 5:00 pm Referral Note: A referral has been sent to therapies for OP PT at the [facility]. If you have not heard from them in 3 days to schedule please call to schedule your appointment. If you are unable to keep this appointment for some reason. Please call to cancel and reschedule. Brandi Cortez [Primary Care Provider, Family Practice] - 12/28/24 9:00 am Referral Note: Blood pressure check, medication review post surgery Germán Roman PA [Physician Psychiatric Secretary, Orthopedics] - 12/21/24 9:00 am Discharge Diet: Regular Discharge Activity: Limit activity as instructed and Use walker/crutches as instructed Patient Instructions: Atenolol (By mouth) (Tenormin), Oxycodone, Rapid Release (By mouth), Ondansetron (By mouth), Apixaban (By mouth) (Eliquis), Acute Wound Care (DC), Precautions after Total Joint Replacement Surgery (DC), Total Knee Replacement (DC), Opioid Safety, Post Anesthesia Care, Patient Portal & Arlen Instructions Activity Restrictions/Additional Instructions: Orthopedic discharge instructions Josie Dressing--Keep dressing on and dry. After 3 days you can remove some of the dressing and shower. disconnect battery pack when showering. Josie dressing will stay on until follow up appt in 2 weeks. The battery pack for the dressing will at 5-7 days. Battery pack can be removed and discarded once batteries . Patient may weight-bear as tolerate to the operative extremity Utilize walker as needed Encourage knee range of motion Ice and elevate as needed for pain and swelling Take pain medication as prescribed Take antinausea medication as needed Pain medication can cause constipation. take [id number] stool softeners and or MiraLAX. Take prescribed Eliquis twice daily for the next 14 days for blood clot prevention May supplement for pain with Tylenol [id number]-[id number] as needed(1000 mg every 8 hours-do not exceed more than 3000mg in 24-hour period) No baths or soaks Follow-up in the orthopedic office in 2 weeks Contact the office for any questions or concerns Hospitalist discharge instructions Given that you have been taking only a 1/4 or 1/2 tablet of 100mg atenolol, I wrote a new prescription for 50mg tablets with directions to take a half or whole tablet based on blood pressure. Followup with your PCP for blood pressure when doing better and take a log of home blood pressure readings with you iin case medications need further adjustment. Patient's Health Concerns: Healing after surgery Pain Control Blood pressure Control Bladder Control Assessment: Status post Right total knee replacement 12/06/2024 Hypertension Overactive bladder Recent fall with right hip pain that may imact recovery Plan of Treatment: Pain control Therapy Home medications as ordered Outpatient follow up Goals: Regain independence post surgery Discharge Attestations Time Spent in Discharge Care*: less than 30 min Quality Metrics Clinical Quality Measures [ No reported AMI, CVA or VTE this stay] Coding Level of Care Code Acute Code for Chg Fwd Diagnoses Status post total right knee replacement using cement Z96.651 Right hip pain M25.551 Primary hypertension I10 Hypertension type: primary hypertension Overactive bladder N32.81 Macular degeneration of both eyes, unspecified type H35.30 Eye laterality: bilateral Macular degeneration type: unspecified type
[2024-12-07 12:44] VITALS: RESP 17; O2SAT 95
[2024-12-07] MEDS: oxyCODONE 5 mg IR Tab/Cap PO (12:44)
[2024-12-07 13:39] VITALS: BP 140/68; PULSE 60; RESP 17; TEMP 36.4; O2SAT 95
== END 2024-12-07 13:09 | disposition home or self-care (01) ==
LOC: OBGYN 14:04
PROVIDERS: Physician Assistant; Admitting Provider Student in an Organized Health Care Education/Training Program; PCP Registered Nurse; Visit Provider Student in an Organized Health Care Education/Training Program
PROC: 8E0Y0CZ Robotic Assisted Procedure of Lower Extremity, Open Approach (ICD-10-PCS; CPT 27447; principal; 2024-12-06 11:35)
DX: M17.11 Unilateral primary osteoarthritis, right knee (principal); I10 Essential (primary) hypertension; N32.81 Overactive bladder; H35.30 Unspecified macular degeneration; M25.551 Pain in right hip; Z85.3 Personal history of malignant neoplasm of breast; R00.1 Bradycardia, unspecified
CPT/HCPCS: 27447; 20985; 36415; 73502; 73560; 80048; 85025; 86850; 86900; 97110; 97116; 97161; 97166; A4216; C1713; C1776; G0378; J0131; J0169; J0690; J1171; J1885; J2704; J2795; J3010; J3373; J3490; J7030; J7120; J9999; L8699

== ENCOUNTER 2024-12-13 06:30 | Outpatient (RCR) | payer MEDICARE, SELFPAY | END 2025-01-11 23:59 | disposition home or self-care (01) | LOC: WPT 06:30 | PROVIDERS: PCP Registered Nurse; Visit Provider Student in an Organized Health Care Education/Training Program | DX: Z47.1 Aftercare following joint replacement surgery (principal); Z96.651 Presence of right artificial knee joint | CPT/HCPCS: 97110; 97112; 97530 ==

== ENCOUNTER → 2024-12-21 08:36 | Outpatient (BNVA) | payer MEDICARE, SELFPAY | PROVIDERS: PCP Registered Nurse; Visit Provider Physician Assistant | DX: Z98.890 Other specified postprocedural states (principal); Z96.651 Presence of right artificial knee joint | CPT/HCPCS: 73560; 73565; 99024 ==

== ENCOUNTER → 2025-02-01 08:54 | Outpatient (BNVA) | payer MEDICARE, SELFPAY | PROVIDERS: PCP Registered Nurse; Visit Provider Physician Assistant | DX: M17.0 Bilateral primary osteoarthritis of knee (principal); Z98.890 Other specified postprocedural states; Z96.651 Presence of right artificial knee joint; L81.8 Other specified disorders of pigmentation; I89.0 Lymphedema, not elsewhere classified; L91.8 Other hypertrophic disorders of the skin; L57.8 Other skin changes due to chronic exposure to nonionizing radiation; L82.1 Other seborrheic keratosis; X32.XXXA Exposure to sunlight, initial encounter; D18.01 Hemangioma of skin and subcutaneous tissue; L81.4 Other melanin hyperpigmentation; L82.0 Inflamed seborrheic keratosis; R20.8 Other disturbances of skin sensation; L29.89 Other pruritus; L53.8 Other specified erythematous conditions | CPT/HCPCS: 11102; 17000; 17110; 73560; 73565; 99203; 99214 ==

== ENCOUNTER 2025-02-10 14:29 | Outpatient (RCR) | payer MEDICARE, OTHER, SELFPAY | END 2025-02-11 23:59 | disposition home or self-care (01) | LOC: WPT 14:29 | PROVIDERS: PCP Registered Nurse; Visit Provider Student in an Organized Health Care Education/Training Program | DX: Z47.1 Aftercare following joint replacement surgery (principal); Z96.651 Presence of right artificial knee joint | CPT/HCPCS: 97110; 97112; 97530 ==

== ENCOUNTER → 2025-03-02 11:21 | Outpatient (BNVA) | payer MEDICARE, OTHER, SELFPAY | PROVIDERS: PCP Registered Nurse; Visit Provider Physician Assistant | DX: Z01.818 Encounter for other preprocedural examination (principal); M17.0 Bilateral primary osteoarthritis of knee; Z96.652 Presence of left artificial knee joint; T84.84XA Pain due to internal orthopedic prosthetic devices, implants and grafts, initial encounter; G89.18 Other acute postprocedural pain | CPT/HCPCS: 81001; 85025; 87086 ==

== ENCOUNTER 2025-03-03 11:43 | Outpatient (CLI) | payer MEDICARE, OTHER, SELFPAY ==
[2025-03-03 12:29] LABS: Alanine Aminotransferase 10 U/L (0-33); Albumin Level 4.2 g/dL (3.5-5.2); Alkaline Phosphatase 108 U/L (35-105); Anion Gap 13.7 (5-19); Aspartate Amino Transferase 17 U/L (0-32); Blood Urea Nitrogen 23 mg/dL (8-23); Calcium 9.6 mg/dL (8.5-10.5); Carbon Dioxide 29 mmol/L (22-29); Chloride 103 mmol/L (98-107); Globulin 3.3 g/dL (1.3-4.6); Glucose 100 mg/dL (65-115); Osmolality Calculated 296 mOsm/kg (285-295); Potassium 4.7 mmol/L (3.5-5.1); Sodium 141 mmol/L (136-145); Total Protein 7.5 g/dL (6.6-8.7)
== END 2025-03-03 11:44 | disposition home or self-care (01) ==
LOC: LAB 11:47
PROVIDERS: PCP Family Medicine; Visit Provider Physician Assistant
DX: Z01.818 Encounter for other preprocedural examination (principal)
CPT/HCPCS: 36415; 80053

== ENCOUNTER 2025-03-11 06:25 | Outpatient (CLI) | payer MEDICARE, OTHER, SELFPAY ==
--- NOTE | 2025-03-11 07:00 | CT_ITS ---
WS: [id number] CT LEFT KNEE, NONCONTRAST [facility] TECHNIQUE: Noncontrast CT of the LEFT knee to include the LEFT hip and ankle. CLINICAL INFORMATION: Pre operative DLP: 941.[address] scans at [facility] use at least one of these dose optimization techniques: automated exposure control; mA and/or kV adjustment per patient size (includes targeted exams where dose is matched to clinical indication); or iterative reconstruction. FINDINGS: Advanced tricompartmental arthritis LEFT knee. Hypertrophic patella. Hypertrophic changes along the joint line. Vascular calcification. Lobulated popliteal cyst. No significant joint effusion. Advanced arthritis sacroiliac joints. Sigmoid diverticulosis. Moderate degenerative narrowing both hips. CT/CT knee LT [facility] [id number] IMPRESSION: Images obtained for preoperative purposes.
== END 2025-03-11 06:26 | disposition home or self-care (01) ==
LOC: RAD 06:27
PROVIDERS: PCP Family Medicine; Visit Provider Student in an Organized Health Care Education/Training Program
DX: M17.12 Unilateral primary osteoarthritis, left knee (principal); J84.10 Pulmonary fibrosis, unspecified; M79.4 Hypertrophy of (infrapatellar) fat pad
CPT/HCPCS: 73700

== ENCOUNTER → 2025-03-18 13:06 | Outpatient (BNVA) | payer MEDICARE, OTHER, SELFPAY | PROVIDERS: PCP Family Medicine; Visit Provider Nurse Practitioner Family | DX: I87.2 Venous insufficiency (chronic) (peripheral) (principal) | CPT/HCPCS: 99214 ==

== ENCOUNTER 2025-03-28 13:47 | Observation (INO) | payer MEDICARE, OTHER, SELFPAY ==
[2025-03-28] VITALS (18 sets, daily range): BP systolic 106–167; BP diastolic 48–88; PULSE 50–66; RESP 15–18; TEMP 36.2–36.8; O2SAT 92–100; BMI 38.3
[2025-03-28] MEDS: acetaminophen 1,000 MG/100 ML PIGGYBACK 400 MG IV ×2 (08:53→16:17)
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
[2025-03-28 09:22] LABS: Hematocrit 36.6 % (36-47); Hemoglobin 11.50 g/dL (11.27-16.99); Mean Corpuscular HGB Conc 31.4 g/dL (30-55); Mean Corpuscular Hemoglobin 30.4 pg (27-33); Mean Corpuscular Volume 96.8 fl (85-98); Nucleated Red Blood Cells % 0 %; Platelet Count 264 10^3/cmm (157-399); Red Blood Count 3.78 10^6/uL (3.85-5.65); White Blood Count 8.70 10^3/uL (3.29-11.43)
[2025-03-28 09:41] LABS: Glucose Urine UA Negative (Normal); Nitrate Urine Negative (Negative); Specific Gravity, Urine 1.022 (1.005-1.030)
[2025-03-28 09:42] LABS: Anion Gap 12.7 (5-19); Blood Urea Nitrogen 27 mg/dL (8-23); Calcium 9.7 mg/dL (8.5-10.5); Carbon Dioxide 32 mmol/L (22-29); Chloride 100 mmol/L (98-107); Creatinine Clr Calc Pharmacy 53.1713; Glucose 113 mg/dL (65-115); Osmolality Calculated 298 mOsm/kg (285-295); Potassium 3.7 mmol/L (3.5-5.1); Sodium 141 mmol/L (136-145)
[2025-03-28 09:46] LABS: Add Urine Microscopic? YES
--- NOTE | 2025-03-28 10:15 | W.PM.OPSUD ---
Surgery/Procedure H&P Update DATE OF PROCEDURE: March 28, 2025 DATE H&P PERFORMED: 03/02/25 H&P UPDATE INFORMATION: I have reviewed H&P completed within last 30 days, I have examined patient prior to procedure, No changes to prior documentation and Risks and benefits of the procedure reviewed CHANGES TO PREVIOUS DOCUMENTATION: Please refer to preoperative anesthetic evaluation for heart and lung findings, patient said no change in health since last office visit. I did recheck a UA by catheterization which is negative today and patient is asymptomatic as well. At this point in time she has been medically optimized and cleared for surgical intervention all questions have been answered at this time she is ready to proceed with surgical intervention. PREOP DIAGNOSIS: Left knee DJD PRIMARY INDICATION FOR PROCEDURE: Left knee DJD PLANNED PROCEDURE: Operation Date: 03/28/25 09:50 Proposed Procedures p Mitchell Robot Total Knee Arthroplasty(Left) - Nas Roman DO
[2025-03-28] MEDS: ceFAZolin 2,000 MG in sodium chloride 0.9% (plus) 50 ML 100 MG IV ×2 (10:19→18:02)
--- NOTE | 2025-03-28 10:48 | ANES.PROC ---
Anesthesia Procedures Procedure/Date: 03/28/25 Left adductor canal block for postoperative pain control Nerve Block ^: Nerve Block 1: Main Anesthesia: general anesthesia Time Out Performed: Yes Consent: requested by attending/covering physician and from patient Laterality: Left Nerve block location: adductor canal Anesthesia monitors applied: pulse oximetry, EKG, BP cuff and oxygen Nerve block position: supine Anesthetic Used: ropivicaine 0.5% Amount of anesthesia used (mL): 15 Ultrasound used to: recognize landmarks Nerve Stimulator Used?: Yes Interscalene/Femoral BLK: other needle (pjunk 4inch) Injection: neg aspiration of heme Patient Tolerated Procedure: well Complications: none
[2025-03-28] MEDS: tranexamic acid 1,000 MG/100 ML PREMIX 600 MG IV ×2 (11:00→19:46)
[2025-03-28] MEDS: tranexamic acid 1,000 mg/10mL SDV 1000 MG XX (11:18)
[2025-03-28] MEDS: ROPivacaine 0.2% Premix 100 mL 200 MG INTRA-ARTI (11:19)
--- NOTE | 2025-03-28 12:25 | W.PM.BPON ---
Date of Procedure: 03/28/2025 Surgeon: Nas Roman DO Psychiatric Social Worker Supervisor(s): Germán Roman PA-C Procedure(s) performed: Left total knee arthroplasty?Mitchell robotic assisted Findings of the procedure(s): Underwent procedure as planned without issues. Estimated blood loss: 50 mL Specimen(s) removed: Tibia femur and patellar bone cuts removed Post-operative diagnosis: Left knee DJD
--- NOTE | 2025-03-28 12:26 | PM.OP ---
Operative Report Date of procedure: March 28, 2025 Surgeon: Nas Roman DO Data Base Design Analyst: Germán Roman PA-C: PA was necessary for assistance in this case with leg positioning retraction and protection of neurovascular structures as well as assistance in implantation wound closure and dressing application. Procedure: Preoperative diagnosis: Left knee degenerative joint disease Post-op diagnosis: Same Procedure done: Left total knee arthroplasty, cemented?robotic assisted Mitchell Implants: Kendleton triathlon size 3 femur CR cemented?left Kendleton triathlon size? 3 tibia universal baseplate cemented Kendleton triathlon symmetric patella size 31 mm Bharat triathlon polyethylene 14mm Surgeon: Nas Roman DO Estimated blood?loss: 50 mL Tourniquet 69minutes?300 mmHg IV fluids: 1300 mL Urine output: 200 mL Complications: None Condition: stable Disposition: floor Brief History: Patient is a 85-year-old female with with chronic?left knee degenerative joint disease.? Patient has been worked up in the outpatient setting in the orthopedic office at this point time through shared decision making given? kiqx-ex-[id number] arthritis as well as failed conservative treatment, and pt would?like to proceed with a?left total knee arthroplasty.? Through shared decision making elected to proceed with surgical intervention for?left total knee arthroplasty?Mitchell robotic assisted.? We talked about continued conservative treatment and surgical intervention as far as the risk benefits complications alternatives surgical and nonsurgical treatment options.? At this point time understanding patient risks with surgery pt agrees to proceed with surgical intervention.? Once again? risk with surgery include but are not?limited to make it better make it worse blood clot, heart attack, stroke, on the table, infection, injury to nerves or vessels, persistent pain, arthrofibrosis, implant failure.? Understanding these risks patient agrees to proceed with surgical intervention consent was obtained in the preoperative area.? All questions answered. Procedure: Patient was seen and evaluated in the preoperative holding area.? Consent was reviewed and signed with patient with plan for?left total knee arthroplasty.? All questions answered.? Correct extremity marked.? Patient seen and evaluated by the anesthesia department and once cleared for surgery was taken back to the operative suite.? Patient was placed into a supine position on the OR table.? All bony prominences were well-padded.? Patient was appropriately secured to the bed.? Patient underwent anesthesia per the anesthesia department.? Patient received anesthesia and? Lao catheter was placed.? A nonsterile tourniquet was applied to the?left thigh.? At this point in time a final timeout performed.? Patient received appropriate preoperative antibiotics and TXA. Next the?left?lower extremity was then prepped and draped in standard orthopedic fashion. Esmarch tourniquet was used exsanguinate the?left?lower extremity.? Tourniquet was insufflated to 300 mmHg. A standard anterior incision was made over midline of the knee.? Sharp scalpel excision through skin and subcutaneous tissue full-thickness skin flaps were made.? Fascia was elevated off of the extensor retinaculum was stable with medial parapatellar arthrotomy was then made.? The performed standard sequential releases..? Immediately on entry into the joint patient was found to have severe eburnated bone and tricompartmental arthritic changes noted.? With significant osteophyte formation.? Next the the patella was then stuffed and the knee was then flexed.?? Doug was placed superiorly around the anterior aspect of the femur this was freed of synovium and I subsequently then placed by 2 femur pins to establish my femur arrays for the Mitchell robot.? These were then placed bicortically and? femur array was then appropriately secured with appropriate visualization.? Next attention was turned towards the tibial rays.? These were then drilled sequentially bicortically in parallel fashion and intraincisional.? I then placed my guide as well as my tibial array on in place.? This was appropriately secured and had excellent visualization with the Mitchell robot.? Next the tibial checkpoint as well as femur checkpoint were then placed.? At this point time I then subsequently established my head center as well as my medial?lateral malleoli as well as my checkpoints.? Next utilizing standard Mitchell technology I then mapped out the appropriate points and confirmation points around the femur as well as the tibia in standard fashion.? Once this was then done I then removed all osteophytes in preparation for dynamic testing.? All osteophytes were removed as well as I removed the ACL and the PCL was excised due to its significant tearing and degeneration noted.? At this point time the knee was brought into full extension and we performed our standard evaluation of our gap balancing stressing his?ligaments and extension as well as flexion appropriate adjustments were made to have appropriate gap balancing in both flexion and extension.? This plan for final cuts to correct patient's deformity up to patient's ligamentous tolerances we get a preoperative plan evaluating our implants which was a size 3 femur and a size 3 tibia.? Next we brought in the Mitchell robot and sequentially made our femur cuts.? All excess bony cuts were then removed.? Finally we made our tibial cut.? Once this was done a standard PCL retractor was then placed into this position I excised the medial and?lateral meniscus.? The tibial cut was then subsequently removed all excess bony debris was removed.? I then utilized a?lamina gas distribution plant operator and remove the posterior osteophytes.? At this point time sized the tibia and confirmed this was a size 3.? I utilized our blunt probe to establish rotation of tibial implant.? Once this was done I then placed my tibia size 3 trial in appropriate position and then subsequently placed tibial pins to hold this into place and trialed up to a size 14 mm poly as well as a size 3 femur which was appropriately impacted in place knee was then subsequently brought into extension. Trials were then assessed,? this was stable with varus valgus stress in extension as well as had symmetrical translation when brought into flexion demonstrating symmetrical gaps. I had excellent balance gaps in flexion and extension with varus and valgus stresses.? At this point I was satisfied with these implants these were then verified and opened on the back table size 3 tibia, size 3 femur,? size 14 mm polythickness.? We did confirm appropriate gap balancing and stresses as well as alignment utilizing? Mitchell and were satisfied with this plan.? ?At this point time with my trials in place I then towel clip the patella everted this made appropriate measurements subsequently utilizing freehand technique performed by patellar resurfacing this was confirmed to be appropriate resection and subsequently sized to be a 31 mm symmetric.? My drill peg guides were then clamped and appropriate position and appropriate position in the patella for appropriate tracking and parallel with the joint.? Pegs were drilled trial implant was placed and the knee was then subsequently ranged and found to have excellent patellar tracking.? Femur pegs were then drilled.? At this point time all of our trial implants were removed.? All checkpoints as well as guidepins and arrays were removed and appropriate counts made.?Satisfied with our tibial placement rotation I then utilized the keel punch and prepped the tibia.? The wound bed? was thoroughly irrigated and dried and prepped for cementation.? Cement was mixed on the back table.? Once cement was ready this was then covered onto the tibia and the tibial baseplate was then impacted and all excess cement was removed.? Next the polyethylene was then impacted into place on the tibial baseplate.? Next cement was placed onto the femur as well as under the femur implants and impacted in to place and all excess cement was extruded and removed.? Knee was taken into full extension? to clear all excess cement was removed.? Warm saline was placed over the joint.? I then towel clip patella and dried for cementation. cemented the patella into place.? This was all clamped and the cement was allowed to cure.? Thorough irrigation performed with pulse?lavage.? I then placed my periarticular injection while the cement was curing.? Once cured the knee was taken through range of motion and had excellent stability and gaps were balanced in flexion and extension.? Patient was able to range from 0-110/115 , tourniquet was then deflated. hemostasis satisfactory with electrocautery.? Vancomycin powder placed in wound bed for antibiotic infection prophylaxis. Next I then subsequently closed the capsule with Ethibond suture as well as a running strata fix suture.? Knee was then taken through range of motion 30 times.? Next the skin was then closed in?layered fashion of running stratifix sutures of deep and subcutenous tissue and skin.? ?closed in flexion with pernell for skin.? Incision was covered with osiel incisional VAC dressing, with ABDs soft roll and Mingo wrap.? Patient was then awakened from anesthesia and taken to PACU in stable condition. Disposition: Patient taken to PACU in stable condition will be admitted to the floor for pain control PT/OT weight-bear as tolerated?left?lower extremity dressing changes as needed, DVT prophylaxis. Pain control. Patient will receive appropriate postoperative antibiotics. patient will be seen today by the internal medicine team for medical management.? Patient will follow up with the office in 2 weeks.? Patient understands agrees with current plan.? All questions answered.
--- NOTE | 2025-03-28 12:37 | XRR_ITS ---
PROCEDURE INFORMATION: Exam: XR Left Knee Exam date and time: 03/28/2025 1:43 PM Age: 85 years old Clinical indication: Device placement; Joint replacement hardware; Prior surgery; Surgery date: Post-operative (0-2 days); Surgery type: L tka; Additional info: Post L tka, do in pacu TECHNIQUE: Imaging protocol: Radiologic exam of the left knee. Views: 1 or 2 views. COMPARISON: CT knee LT [facility] [id number] 03/11/2025 7:27 AM FINDINGS: Bones/joints: Postop changes of left total knee arthroplasty are present. The hardware is in good position. No unexpected fractures are identified. Soft tissues: There is subcutaneous and intra-articular air. XR/XR knee LT 1-2V [id number] IMPRESSION: Status post total knee arthroplasty without unexpected findings.
--- NOTE | 2025-03-28 12:52 | PM.PACU ---
PACU note Narrative: Patient is an 85-year-old female who just underwent a left total knee arthroplasty. Pt transferred to PACU in stable condition. Dressing is dry. pt is awake and alert. pt can wiggle toes and plantarflex and dorsiflex foot. pt able to perform straight leg raise, Femoral nerve intact. Distal pulses are palpable toes are warm and well-perfused. Cap refill is normal and under 2 seconds. Sensation to foot is intact. Pain is controlled. Exam: awake Disposition: admitted
[2025-03-28] MEDS: fentaNYL 50 mcg/mL INJ 2mL 100 MCG (12:58)
[2025-03-28] MEDS: oxyCODONE 5 mg IR Tab/Cap PO ×2 (14:04→19:46)
--- NOTE | 2025-03-28 14:18 | ANE.PACU2 ---
Inpatient post-anesthesia follow up: Airway intact: Yes Vital signs: Temperature 98.1 F Pulse Rate 59 Respiratory Rate 17 Blood Pressure 148/64 Pulse Oximetry 92 Oxygen Delivery Me thod Room Air Oxygen Flow Rate 6 Fraction of Inspir ed Oxygen Hydration adequate: Yes Nausea and vomiting: No Pain level: 2 Mental status: Baseline
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
[2025-03-28] MEDS: chlorhexidine gluconate 0.12% Btl 473 mL 30 ML MUCOUS MEM (18:01)
[2025-03-28] MEDS: mupirocin oint 22 gm 1 APPLIC NASAL (18:01)
[2025-03-28] MEDS: calcium carb-vit d 600mg/400unit 1 Tablet 1 EACH PO (18:03)
[2025-03-28] MEDS: sennosides-docusate Tablet 2 TAB PO (18:03)
--- NOTE | 2025-03-28 21:20 | PC.NURSE ---
RN AT BEDSIDE CHANGING OUT ICE PACKS.
[2025-03-29] MEDS: acetaminophen 1,000 MG/100 ML PIGGYBACK 400 MG IV ×2 (01:13→09:18)
--- NOTE | 2025-03-29 01:18 | PC.NURSE ---
THIS RN AT BEDSIDE AT THIS TIME REMOVING URINARY CATHETER. 10MLS OF SALINE REMOVED FROM BALLOON. CATHETER INTACT UPON REMOVAL.
[2025-03-29 01:21] VITALS: BP 123/58; PULSE 70; RESP 16; O2SAT 95
--- NOTE | 2025-03-29 01:24 | PC.NURSE ---
RN AT BEDSIDE CHANGING OUT ICE PACKS.
[2025-03-29] MEDS: ceFAZolin 2,000 MG in sodium chloride 0.9% (plus) 50 ML 100 MG IV (02:48)
[2025-03-29] MEDS: multivitamin therapeutic Tablet 1 TAB PO (06:01)
[2025-03-29] MEDS: sennosides-docusate Tablet 2 TAB PO (06:02)
[2025-03-29] MEDS: calcium carb-vit d 600mg/400unit 1 Tablet 1 EACH PO (06:02)
[2025-03-29] MEDS: mupirocin oint 22 gm 1 APPLIC NASAL (06:03)
[2025-03-29] MEDS: chlorhexidine gluconate 0.12% Btl 473 mL 30 ML MUCOUS MEM ×2 (06:03→10:39)
[2025-03-29 06:11] VITALS: BP 121/80; PULSE 65; RESP 16; TEMP 36.8; O2SAT 93
[2025-03-29 06:27] LABS: Hematocrit 32.6 % (36-47); Hemoglobin 10.20 g/dL (11.27-16.99); Mean Corpuscular HGB Conc 31.3 g/dL (30-55); Mean Corpuscular Hemoglobin 30.7 pg (27-33); Mean Corpuscular Volume 98.2 fl (85-98); Nucleated Red Blood Cells % 0 %; Platelet Count 237 10^3/cmm (157-399); Red Blood Count 3.32 10^6/uL (3.85-5.65); White Blood Count 13.31 10^3/uL (3.29-11.43)
[2025-03-29 06:50] LABS: Anion Gap 12.0 (5-19); Blood Urea Nitrogen 25 mg/dL (8-23); Calcium 8.5 mg/dL (8.5-10.5); Carbon Dioxide 29 mmol/L (22-29); Chloride 104 mmol/L (98-107); Creatinine Clr Calc Pharmacy 53.1713; Glucose 139 mg/dL (65-115); Osmolality Calculated 299 mOsm/kg (285-295); Potassium 4.0 mmol/L (3.5-5.1); Sodium 141 mmol/L (136-145)
[2025-03-29 08:45] VITALS: RESP 18
[2025-03-29] MEDS: oxyCODONE 5 mg IR Tab/Cap PO ×2 (08:45→12:51)
[2025-03-29] MEDS: APIXABAN 2.5 MG TABLET PO (08:46)
--- NOTE | 2025-03-29 09:56 | P.PN_ITS ---
Subjective 2 Subjective: Patient is a very pleasant 85-year-old female seen and examined at bedside on hospital rounds this morning. Visualized patient walk with walker from across the room, did very well working with physical therapy this morning. Patient states mild left knee pain, denies new or worsening symptoms. Vital signs are stable. Mildly elevated WBC 13.31 this could be secondary to surgery, no signs or symptoms of infection, patient is afebrile. From the hospitalist point of view patient is stable for discharge, plans to discharge with continued outpatient PT follow-up with Ortho. Discharge planning and instructions per primary attending orthopedist . Vitals/I&O/Wt Last Vital Signs Temp 98.2 F 03/29/25 06:11 Pulse 65 03/29/25 06:11 Resp 18 03/29/25 08:45 BP 121/80 03/29/25 06:11 Pulse Ox 93 03/29/25 06:11 O2 Del Method Room Air 03/29/25 06:11 O2 Flow Rate 2 03/28/25 21:04 03/28/25 03/29/25 03/29/25 22:59 06:59 14:59 Intake Total 150 / 1700 200 / 200 Output Total 300 / 530 300 / 830 Balance -150 / 1170 -300 / 870 200 / 200 Weight last 48 hrs Weight 92.079 kg Physical Exam 2 Narrative: General: A&Ox4, Mild left knee pain otherwise in NAD. Cardio: NSR, normal S1-S2 w/o any murmurs, rubs, or gallops and JVD normal Respiratory: Clear to bilateral upper and lower lobes on auscultation GI: Abd soft, non-tender, non-distended, normo-active bowel sounds present Neuro: Moves all extremities, no sensory deficits, Normal speech Behavior: Appropriate and cooperative Extremities: Adequate palpable pulses. Dressing to left knee in place noted to be C/D/I. Data 03/29/25 06:05 03/29/25 06:05 A&P Assessment and plan 1. Status post total left knee replacement: 2. Primary hypertension: 3. Overactive bladder: 4. Macular degeneration of both eyes, unspecified type: Plan: S/P Left Total Knee Arthroplasty. - Patient s/p left total knee arthroplasty - Fall precations - Neurovascular checks q4hr - IS q1hr - PT, OT ordered. WBAT - Pain analgesics ordered, PRN - Discharge planning and mgmt per attending Primary hypertension ? Continue home medication atenolol 50 mg PO dly, amlodipine 5 mg PO dly ? Monitor vital signs as per protocol Overactive bladder ? Continue home medication oxybutynin chloride 5 mg PO TID as needed ? DC Lao catheter as per nursing Macular degeneration of both eyes ? Continue home medication dorzolamide/timolol, latanoprost, Systane Depression ? Continue home medication Bupropion HCI 150mg PO CODE STATUS: Full code VTE prophylaxis: Eliquis 2.5 mg p.o. BID Okay to discharge home from hospitalist perspective, hospitalist team grateful to participate in the medical management of this patient. PDMP PDMP Reviewed: Not Reviewed Attestations 2 Medical Necessity Statement*: Per attending Coding Level of Care Code 16075 Diagnoses Status post total left knee replacement Z96.652 Primary hypertension I10 Hypertension type: primary hypertension Overactive bladder N32.81 Macular degeneration of both eyes, unspecified type H35.30 Eye laterality: bilateral Macular degeneration type: unspecified type
[2025-03-29 11:02] VITALS: BP 142/78; PULSE 68; RESP 17; TEMP 36.4; O2SAT 97
[2025-03-29 12:51] VITALS: RESP 17
--- NOTE | 2025-03-29 13:50 | PM.DCS ---
Discharge Providers Date of Admission: 03/28/25 13:47 Date of Discharge: March 29, 2025 Attending Provider at Admission: Nas Roman DO Attending Provider at Discharge: Nas Roman DO Consults: Hospitalist Primary Care Provider: Rolando Ramsey Diagnoses at Discharge Discharge Diagnosis 1. Status post total left knee replacement: 2. Primary hypertension: 3. Overactive bladder: 4. Macular degeneration of both eyes, unspecified type: Reason for Visit Reason for Visit: S/P Left total knee arthroplasty Brief History: Status post left total knee arthroplasty?Mitchell robotic assisted Hospital Course Hospital Course Patient presented to the preoperative holding area with plan for left total knee arthroplasty after patient has been worked up in the outpatient setting for failed conservative treatment of [left] knee degenerative joint disease. Once cleared by anesthesia for surgery patient subsequently was taken back to the operative suite underwent anesthesia per anesthesia department and then subsequently underwent a [left] total knee arthroplasty. Procedure was performed without any complications patient was taken to PACU in stable condition patient recovered well in PACU and then was admitted to the floor postoperatively internal medicine was consulted and on board for medical management and assistance with care. Patient received appropriate PT/OT, postoperative antibiotics, postoperative TXA, pain control, postoperative DVT prophylaxis. Elevation and ice. Patient encouraged for knee range of motion allowed weightbearing as tolerated to the operative lower extremity. Dressing was changed as needed, labs were monitored daily. Patient recovered well postoperatively and worked well and progressed well with therapy. It was determined on postoperative day [1 ] the patient was stable for discharge from an orthopedic standpoint and medicine. Patient was comfortable with discharge and plan was discharged home. Patient received appropriate discharge instructions as well as pain medication and DVT prophylaxis postoperatively. Given appropriate instructions for dressing management. Patient will follow-up with Dr. Roman/orthopedics in the office in 2 weeks. All questions answered. Understand if there is any issues questions or concerns and contact the office. Physical Exam Narrative: Left knee examination: Dressing on in place, clean dry and intact. No evidence of saturation. Patient has normal postoperative swelling and tenderness to palpation to the knee. Compartments are soft compressible,'s calf soft and nontender. Sensations intact to light touch distally. Distal pulses are palpable. Patient is able to wiggle toes as well as plantarflex and dorsiflex ankle. Discharge Data Studies Completed and Pending Completed Studies During Hospitalization Category Date Time Status XR knee LT 1-2V [id number] Routine Exams 12/15/25 12:37 Completed Pending at discharge Category Date Time Status Basic Metabolic Panel AM LABS Lab 03/30/25 04:00 Ordered Basic Metabolic Panel AM LABS Lab 03/31/25 04:00 Ordered Complete Blood Count w/Auto AM LABS Lab 03/30/25 04:00 Ordered Complete Blood Count w/Auto AM LABS Lab 03/31/25 04:00 Ordered Radiology Impressions Knee X-Ray 03/28/25 12:37 IMPRESSION: Status post total knee arthroplasty without unexpected findings. Laboratory Results WBC 13.31 10^3/uL (3.29-11.43) H 03/29/25 06:05 RBC 3.32 10^6/uL (3.85-5.65) L 03/29/25 06:05 Hgb 10.20 g/dL (11.27-16.99) L 03/29/25 06:05 Hct 32.6 % (36-47) L 03/29/25 06:05 MCV 98.2 fl (85-98) H 03/29/25 06:05 MCH 30.7 pg (27-33) 03/29/25 06:05 MCHC 31.3 g/dL (30-55) 03/29/25 06:05 RDW 13.3 % (12.1-15.1) 03/29/25 06:05 Plt Count 237 10^3/cmm (157-399) 03/29/25 06:05 MPV 10.4 fL (7.4-10.4) 03/29/25 06:05 Neut % (Auto) 80.4 % 03/29/25 06:05 Lymph % (Auto) 8.3 % 03/29/25 06:05 [place] % (Auto) 10.7 % 03/29/25 06:05 Eos % (Auto) 0.0 % 03/29/25 06:05 Baso % (Auto) 0.2 % 03/29/25 06:05 Neut # (Auto) 10.70 10^3/uL (1.8-7.7) H 03/29/25 06:05 Lymph # (Auto) 1.1 10^3/uL (0.8-4.8) 03/29/25 06:05 [place] # (Auto) 1.4 10^3/uL (0.2-0.9) H 03/29/25 06:05 Eos # (Auto) 0.0 10^3/uL (0.0-0.8) 03/29/25 06:05 Baso # (Auto) 0.0 10^3/uL (0.0-0.1) 03/29/25 06:05 Nucleated RBC % (auto) 0 % 03/29/25 06:05 Nucleated RBCs # 0.0 /100WBC 03/29/25 06:05 Sodium 141 mmol/L (136-145) 03/29/25 06:05 Potassium 4.0 mmol/L (3.5-5.1) 03/29/25 06:05 Chloride 104 mmol/L (98-107) 03/29/25 06:05 Carbon Dioxide 29 mmol/L (22-29) 03/29/25 06:05 Anion Gap 12.0 (5-19) 03/29/25 06:05 BUN 25 mg/dL (8-23) H 03/29/25 06:05 Creatinine 0.6 mg/dL (0.5-0.9) 03/29/25 06:05 GFR Calculation Not Reportable 03/29/25 06:05 Glucose 139 mg/dL (65-115) H 03/29/25 06:05 POC Glucose 107 mg/dL (70-110) 03/28/25 08:46 Calculated Osmolality 299 mOsm/kg (285-295) H 03/29/25 06:05 Calcium 8.5 mg/dL (8.5-10.5) 03/29/25 06:05 Urine Color Yellow (Yellow) 03/28/25 09:25 Urine Appearance Clear (CLEAR) 03/28/25 09:25 Urine pH 7.0 (5-7) 03/28/25 09:25 Ur Specific [place] 1.022 (1.005-1.030) 03/28/25 09:25 Urine Protein Negative (Negative) 03/28/25 09:25 Urine Glucose (UA) Negative (Normal) 03/28/25 09:25 Urine Ketones Negative (Negative) 03/28/25 09:25 Urine Blood Negative (Negative) 03/28/25 09:25 Urine Nitrate Negative (Negative) 03/28/25 09:25 Urine Bilirubin Negative (Negative) 03/28/25 09:25 Urine Urobilinogen 1.0 mg/dL (Negative) 03/28/25 09:25 Ur Leukocyte Esterase Negative (Negative) 03/28/25 09:25 Urine RBC 0-2 /hpf (0-2) 03/28/25 09:25 Urine WBC 0-5 /hpf (0-5) 03/28/25 09:25 Ur Squamous Epith Cells 0-5 /hpf (0-5) 03/28/25 09:25 Amorphous Sediment Not Reportable 03/28/25 09:25 Urine Bacteria Trace /hpf (NONE) 03/28/25 09:25 Hyaline Casts 0.40 /lpf 03/28/25 09:25 Blood Type O Positive 03/28/25 09:10 Rho(D) Type Rh positive 03/28/25 09:10 Antibody Screen Negative 03/28/25 09:10 Vitals Last Vital Signs Temp 97.5 F L 03/29/25 11:02 Pulse 68 03/29/25 11:02 Resp 17 03/29/25 12:51 BP 142/78 03/29/25 11:02 Pulse Ox 97 03/29/25 11:02 O2 Del Method Room Air 03/29/25 11:02 O2 Flow Rate 2 03/28/25 21:04 Discharge Plan Discharge Patient Disposition: Home Health Service Condition: Stable Prescriptions: New Eliquis 2.5 mg tablet 2.5 mg PO BID 14 Days Qty: 28 0RF cefadroxil 500 mg capsule 500 mg PO BID 7 Days Qty: 14 0RF oxycodone 5 mg tablet 5 mg PO Q6H PRN (Reason: pain postop) 7 Days Qty: 28 0RF calcium carbonate-vitamin D3 [Calcium 600 + D(3)] 600 mg-10 mcg (400 unit) tablet 1 tab PO DAILY 30 Days Qty: 30 0RF Continued (DME) Left and Right Knee Medial Condominium Manager Brace See Rx Instructions .Route .MEDSUPPLY Qty: 1 0RF Rx Instructions: As directed bupropion HCl 150 mg tablet extended release 24 hr 150 mg PO DAILY latanoprost 0.005 % drops 1 drp ophthalmic (eye) BEDTIME amlodipine 5 mg tablet 5 mg PO QAM dorzolamide-timolol 22.3-6.8 mg/mL drops 1 drp ophthalmic (eye) BID Rx Instructions: right eye oxybutynin chloride 5 mg tablet 5 mg PO TID PRN (Reason: unknown) Systane Complete 0.6 % Drops 1 drp ophthalmic (eye) QID atenolol 50 mg tablet 50 mg PO DAILY Qty: 30 0RF Rx Instructions: Take 1/2 tab daily for SBP (top number) >120; Take whole tab daily for SBP >/=150 Drilling Engineering Manager OK for DC: Orthopedics and Hospitalist Discharge Order = DC NOW: Discharge Order (Routine); Ordered 03/29/25 Ordered By: Nas Roman Other Ambulatory Orders: Physical Therapy Eval and Treat Outpatient (Order) Timeframe: 3 Days Facility: [facility] - Location: Physical Therapy [place] Ordered By: Nas Roman Referrals: [facility] Outpatient Therapy [Outside] - 04/04/25 2:00 pm Referral Note: This is your appointment for OP Physical Therapy @ the [facility]. If unable to keep or need to reschedule please call the [facility] @ [phone]. Thank you. Germán Roman PA [Physician Uke Driver, Orthopedics] - 04/12/25 8:00 am Discharge Diet: Regular Discharge Activity: Limit activity as instructed Patient Instructions: Cefadroxil (By mouth), Ondansetron (By mouth) (Estephania, Zoalejandra ODT, Maxineuplenz), Oxycodone, Slow Release (By mouth), Apixaban (By mouth), Acute Wound Care (DC), Precautions after Total Joint Replacement Surgery (DC), Total Knee Replacement (DC), Opioid Safety, Post Anesthesia Care, Patient Portal & Arlen Instructions Activity Restrictions/Additional Instructions: Orthopedic discharge directions: Josie Dressing--Keep dressing on and dry. After 3 days, remove Mingo bandage and soft dressing down to white peel stick bandage. disconnect battery pack when showering. Josie dressing will stay on until follow up appt in 2 weeks. The battery pack for the dressing will at 5-7 days. Battery pack can be removed and discarded once batteries . Patient may weight-bear as tolerate to the operative extremity Utilize walker as needed Encourage knee range of motion Ice and elevate as needed for pain and swelling Take pain medication as prescribed Take antinausea medication as needed Take antibiotic as prescribed for infection prevention Supplement with calcium vitamin D for bone health and healing Pain medication can cause constipation. take htyz-xek-vgybprz stool softeners and or MiraLAX. Take prescribed Eliquis twice daily for the next 14 days for blood clot prevention May supplement for pain with Tylenol ksmx-zzn-[id number] as needed(1000 mg every 8 hours-do not exceed more than 3000mg in 24-hour period) No baths or soaks Follow-up in the orthopedic office in 2 weeks Contact the office for any questions or concerns Discharge Attestations Time Spent in Discharge Care*: less than 30 min Quality Metrics Clinical Quality Measures [ No reported AMI, CVA or VTE this stay] Coding Level of Care Code Acute Code for Chg Fwd Diagnoses Status post total left knee replacement Z96.652 Primary hypertension I10 Hypertension type: primary hypertension Overactive bladder N32.81 Macular degeneration of both eyes, unspecified type H35.30 Eye laterality: bilateral Macular degeneration type: unspecified type
[2025-03-29 14:30] VITALS: BP 111/51; PULSE 66; RESP 17; TEMP 36.6; O2SAT 96
== END 2025-03-29 14:45 | disposition home health service (06) ==
LOC: OBGYN 13:47
PROVIDERS: Physician Assistant; Admitting Provider Student in an Organized Health Care Education/Training Program; PCP Family Medicine; Visit Provider Student in an Organized Health Care Education/Training Program
PROC: 8E0Y0CZ Robotic Assisted Procedure of Lower Extremity, Open Approach (ICD-10-PCS; CPT 27447; principal; 2025-03-28 09:20)
DX: M17.12 Unilateral primary osteoarthritis, left knee (principal); I10 Essential (primary) hypertension; R00.1 Bradycardia, unspecified; Z85.3 Personal history of malignant neoplasm of breast; H35.30 Unspecified macular degeneration; N32.81 Overactive bladder
CPT/HCPCS: 64447; 27447; 20985; 36415; 36416; 73560; 80048; 81001; 82962; 85025; 86850; 86900; 97110; 97116; 97161; 97165; 97530; A4216; C1713; C1776; G0378; J0131; J0169; J0690; J1100; J1885; J2371; J2405; J2704; J2795; J3010; J3373; J7030; J7120; J9999; L8699

== ENCOUNTER → 2025-04-12 07:39 | Outpatient (BNVA) | payer MEDICARE, OTHER, SELFPAY | PROVIDERS: PCP Family Medicine; Visit Provider Physician Assistant | DX: Z98.890 Other specified postprocedural states (principal); Z96.652 Presence of left artificial knee joint | CPT/HCPCS: 73560; 73565 ==

== ENCOUNTER 2025-04-12 09:17 | Emergency (ER) | payer MEDICARE, OTHER, SELFPAY ==
--- NOTE | 2025-04-12 09:21 | USCV_ITS ---
Marie Hickman Age: 85 Gender: F : 1940 Exam Date: 04/12/2025 09:47 Ordering Phys: Hector Izaguirre MD Technologist: Exam Location: [facility] Indication: lt leg pain and swelling post lt knee surg 15 days ago PROCEDURES: Venous duplex imaging was performed in only the left lower extremity. The following venous structures were evaluated: common femoral vein, profunda vein, proximal portion of the greater saphenous vein, superficial femoral vein, and the popliteal vein. In addition, the posterior tibial and peroneal trunk were evaluated. FINDINGS: Normal 2-D Doppler and augmentation and compressibility throughout the lower extremity venous structures. Additional imaging through the proximal calf veins also reveals no thrombus. Limited evaluation of the greater saphenous vein is patent with no thrombus. CONCLUSIONS No evidence of left lower extremity DVT. Tono Montana MD (Electronically Signed) Final Date: 12 April 2025 13:45 S
[2025-04-12 09:24] VITALS: BP 159/73; PULSE 54; RESP 17; TEMP 36.4; O2SAT 96; BMI 39.4
--- OUTSIDE RECORDS SUMMARY | 2025-04-12 09:40 | XMS_ITS | Encounter Summary ---
Author Organization [employer] [facility] Address [address] [place] [address] Care Team Providers Care Safety Assistant Name Role Phone Anuradha Valencia MD Primary Care Provider Encounter Details Date Type Department Care Team (Latest Contact Info) Description 08/10/2004 Outpatient Historical [facility] Cancer and Hematology [address] [place] [address] Pelon Nickerson MD NO ADDRESS ON FILE MALIG NEOPLASM BREAST UP-OUTER (CMS/HCC) (Primary Dx) Social History Tobacco Use Types Packs/Day Years Used Date Smoking Tobacco: Never Assessed Comments Unknown Sex and Gender Information Value Date Recorded Sex Assigned at Not on file 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
--- OUTSIDE RECORDS SUMMARY | 2025-04-12 09:40 | XMS_ITS | Encounter Summary ---
Author Organization [facility] Address [address] [place] [address] Care Team Providers Care Brand Engineer Name Role Phone Anuradha Valencia MD Primary Care Provider Reason for Referral * Outpatient Services (Routine) - Closed Specialty Diagnoses / Procedures Referred By Mihir hernandez Referred To Contact Diagnoses Other screening mammogram Procedures MAMMO DIGITAL SCREEN UNI RIGHT Pelon Nickerson MD NO ADDRESS ON FILE Referral ID Status Reason Start Date Expiration Date Visits Re quested Visits Authorized [id number] Closed 06/06/2011 06/05/2012 1 1 IT REVIEW ANALYST Encounter Details Date Type Department Care Team (Latest Contact Info) Description 06/06/2011 Ancillary Orders [facility] Pre-Registration [place] CALL TO MAKE APPOINTMENT ONLY [address] [place] [phone] Pelon Nickerson MD NO ADDRESS ON FILE Other screening mammogram Social History Tobacco Use Types Packs/Day Years Used Date Smoking Tobacco: Former Cigarettes 2.5 0 10/14/1961 - 04/14/1964 Alcohol Use Standard Drinks/Week Comments No 0 (1 standard drink = 0.6 oz pur e alcohol) Comments No Sex and Gender Information Value Date Recorded Sex Assigned at Not on file 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 This examination was reviewed with the aid of a computer-aided detection system(CAD). The breast tissue density is average. No significant new findings since the prior mammogram(s) Procedure Note Rebecca Jones MD - 07/06/2011 Right Mammogram Reason for Exam: Screening Comparison: Comparison is made with the prior exam(s) dated 07.12.0511.6.14. Findings: Right CC and MLO views were obtained. This examination was reviewed with the aid of a computer-aided detectionsystem(CAD). The breast tissue density is average. No significant new findings since the prior mammogram(s) Pelon Nickerson MD MAMMO ORDERABLES Final Result documented in this encounter Visit Diagnoses Diagnosis Other screening mammogram Other screening mammogram documented in this encounter Care Teams Brand Engineer Relationship Specialty Start Date End Date Anuradha Valencia MD [address] [phone] PCP - General Family Practice 05/05/13 documented as of this encounter
--- OUTSIDE RECORDS SUMMARY | 2025-04-12 09:40 | XMS_ITS | Encounter Summary ---
Author Organization [employer] [facility] Address [address] [place] [address] Care Team Providers Care Data Quality Consultant Name Role Phone Anuradha Valencia MD Primary Care Provider Encounter Details Date Type Department Care Team (Latest Contact Info) Description 11/18/2003 Outpatient Historical [facility] Cancer and Hematology [address] [place] [address] Pelon Nickerson MD NO ADDRESS ON FILE MALIG NEOPLASM BREAST UP-OUTER (CMS/HCC) (Primary Dx) Social History Tobacco Use Types Packs/Day Years Used Date Smoking Tobacco: Never Assessed Comments Unknown Sex and Gender Information Value Date Recorded Sex Assigned at Not on file 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 Gender Identity Not on file Sexual Orientation Not on file documented as of this encounter Plan of Treatment Not on file documented as of this encounter Visit Diagnoses Diagnosis 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
--- OUTSIDE RECORDS SUMMARY | 2025-04-12 09:40 | XMS_ITS | Encounter Summary ---
Author Organization [facility] Address [address] [place] [address] Care Team Providers Care Communications Engineer Name Role Phone Anuradha Valencia MD Primary Care Provider [phone] Encounter Details Date Type Department Care Team (Latest Contact Info) Description 02/07/2004 Outpatient Historical [facility] Cardiology- [place] [address] [place] [address] Joseph Fischer MD NO ADDRESS ON FILE Benign hypertension (Primary Dx); BREAST NEOPLASM NOS Social History Tobacco Use Types Packs/Day Years Used Date Smoking Tobacco: Never Assessed Comments Unknown Sex and Gender Information Value Date Recorded Sex Assigned at Not on file 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
--- OUTSIDE RECORDS SUMMARY | 2025-04-12 09:40 | XMS_ITS | Encounter Summary ---
Author Organization [facility] Address [address] [place] [address] Care Team Providers Care Product Management Analyst Name Role Phone Anuradha Valencia MD Primary Care Provider Encounter Details Date Type Department Care Team (Latest Contact Info) Description 04/20/2004 [facility] Alli Armstrong MD NO ADDRESS ON FILE LUMP OR MASS IN BREAST (Primary Dx) Social History Tobacco Use Types Packs/Day Years Used Date Smoking Tobacco: Never Assessed Comments Unknown Sex and Gender Information Value Date Recorded Sex Assigned at Not on file 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
--- OUTSIDE RECORDS SUMMARY | 2025-04-12 09:40 | XMS_ITS | Encounter Summary ---
Author Organization [facility] Address [address] [place] [address] Care Team Providers Care Motion Picture Photographer Name Role Phone Anuradha Valencia MD Primary Care Provider [phone]- [phone] Encounter Details Date Type Department Care Team (Late st Contact Info) Description 08/12/2008 Ancillary Orders [facility] Medicine [address] [phone] Radhames Pearson, NO ADDRESS ON FILE Social History Tobacco Use Types Packs/Day Years Used Date Smoking Tobacco: Former Cigarettes 2.5 0 10/14/1961 - 04/14/1964 Alcohol Use Standard Drinks/Week Comments No 0 (1 standard drink = 0.6 oz pur e alcohol) Comments No Sex and Gender Information Value Date Recorded Sex Assigned at Not on file 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
--- OUTSIDE RECORDS SUMMARY | 2025-04-12 09:40 | XMS_ITS | Encounter Summary ---
Author Organization [employer] [facility] Address [address] [place] [address] Care Team Providers Care Construction Checker Name Role Phone Anuradha Valencia MD Primary Care Provider Encounter Details Date Type Department Care Team (Latest Contact Info) Description 01/03/2004 Outpatient Historical [facility] Cancer and Hematology [address] [place] [address] Pelon Nickerson MD NO ADDRESS ON FILE MALIG NEOPLASM BREAST UP-OUTER (CMS/HCC) (Primary Dx); Vena cava thrombosis Social History Tobacco Use Types Packs/Day Years Used Date Smoking Tobacco: Never Assessed Comments Unknown Sex and Gender Information Value Date Recorded Sex Assigned at Not on file 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 Gender Identity Not on file Sexual Orientation Not on file documented as of this encounter Plan of Treatment Not on file documented as of this encounter Visit Diagnoses Diagnosis 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
--- OUTSIDE RECORDS SUMMARY | 2025-04-12 09:40 | XMS_ITS | Encounter Summary ---
Author Organization [employer] [facility] Address [address] [place] [address] Care Team Providers Care Desktop Operator Name Role Phone Anuradha Valencia MD Primary Care Provider Encounter Details Date Type Department Care Team (Latest Contact Info) Description 04/20/2004 Outpatient Historical [facility] Cancer and Hematology [address] [place] [address] Pelon Nickerson MD NO ADDRESS ON FILE MALIG NEOPLASM BREAST UP-OUTER (CMS/HCC) (Primary Dx) Social History Tobacco Use Types Packs/Day Years Used Date Smoking Tobacco: Never Assessed Comments Unknown Sex and Gender Information Value Date Recorded Sex Assigned at Not on file 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
--- OUTSIDE RECORDS SUMMARY | 2025-04-12 09:40 | XMS_ITS | Encounter Summary ---
Author Organization [facility] Address [address] [place] [address] Care Team Providers Care Hogshead Builder Name Role Phone Anuradha Valencia MD Primary Care Provider [phone] Reason for Referral * Outpatient Services (Routine) - Closed Specialty Diagnoses / Procedures Referred By Mihir hernandez Referred To Contact Radiology Diagnoses Breast cancer screening Procedures MAMMO SCRN UNI RT 3D KELLY W OR WO CAD MAMMO SCRN BILAT 3D KELLY W OR WO CAD MAMMO SCREEN BILAT W OR WO CAD Anuradha Valencia MD [address] [facility] [address] [place] [address] Phone: tel: fax: [facility] [address] [address] Phone: tel: fax: Referral ID Status Reason Start Date Expiration Date Visits Re quested Visits Authorized [id number] Closed 10/23/2017 11/23/2018 1 1 Encounter Details Date Type Department Care Team (Latest Contact Info) Description 12/16/2017 Ancillary Orders [facility] Pre-Registration [place] CALL TO MAKE APPOINTMENT ONLY [address] [place] [address] Anuradha Valencia MD [address] [phone] Breast cancer screening Social History Tobacco Use Types Packs/Day Years Used Date Smoking Tobacco: Former Cigarettes 2.5 0 10/14/1961 - 04/14/1964 Smokeless Tobacco: Never Alcohol Use Standard Drinks/Week Comments No 0 (1 standard drink = 0.6 oz pur e alcohol) Comments No Sex and Gender Information Value Date Recorded Sex Assigned at Not on file 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 No change from previous exams. BI-RADS ASSESSMENT: 2 - Benign Recommendation: Annual screening mammography [id number] Narrative 12/17/2017 4:17 PM CDT EXAM: MAMMO SCRN UNI RT 3D KELLY W OR WO CAD INDICATION: Screening COMPARISON: Mammogram 11/15/2016, 10/19/2015, 10/06/2014, 10/05/2013, 08/14/2012, 07/04/2011 TECHNIQUE: 3-D MLO and CC digital tomosynthesis images were acquired. Synthesized 2-D images (C-view) were generated. This digital mammogram was also analyzed by the Computer Aided Detection System (CAD). FINDINGS: There are scattered areas of fibroglandular density. Scattered benign-appearing calcifications are again identified. There are no suspicious masses, calcifications, or architectural distortions. She has had a left mastectomy. Anuradha Valencia MD MAMMO ORDERABLES Final Resu lt documented in this encounter Visit Diagnoses Diagnosis Breast cancer screening Breast screening, unspecified Breast cancer screening Breast screening, unspecified documented in this encounter Care Teams Hogshead Builder Relationship Specialty Start Date End Date Anuradha Valencia MD [address] [phone] PCP - General Family Practice 05/05/13 documented as of this encounter
--- OUTSIDE RECORDS SUMMARY | 2025-04-12 09:40 | XMS_ITS | Encounter Summary ---
Author Organization [facility] Address [address] [place] [address] Care Team Providers Care Nurses' Association Counselor Name Role Phone Anuradha Valencia MD Primary Care Provider Encounter Details Date Type Department Care Team (Late st Contact Info) Description 02/17/2009 Ancillary Orders [facility] [place] [place] [facility] [address] [facility] [address] [place] [address] Pelon Nickerson MD NO ADDRESS ON FILE Personal History of Malignant Neoplasm of Breast; Screening Mammogram Social History Tobacco Use Types Packs/Day Years Used Date Smoking Tobacco: Former Cigarettes 2.5 0 10/14/1961 - 04/14/1964 Alcohol Use Standard Drinks/Week Comments No 0 (1 standard drink = 0.6 oz pur e alcohol) Comments No Sex and Gender Information Value Date Recorded Sex Assigned at Not on file Legal Sex Female 4:28 AM 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 This examination was reviewed with the aid of a computer-aided detection system(CAD). The breast tissue density is average. No significant new findings since the prior mammogram(s). Procedure Note Clarence Bailey MD - 02/20/2009 Unilateral Mammogram Reason for Exam: Screening Comparison: Comparison is made with the prior exam(s) dated 2005 Findings: Unilateral CC and MLO views were obtained. This examination was reviewed with the aid of a computer-aided detectionsystem(CAD). The breast tissue density is average. No significant new findings since the prior mammogram(s). us Pelon Nickerson MD MAMMO ORDERABLES Final Result documented in this encounter Visit Diagnoses Diagnosis Screening mammogram Other screening mammogram Personal history of malignant neoplasm of breast Personal history of malignant neoplasm of breast Screening mammogram Other screening mammogram documented in this encounter Care Teams Nurses' Association Counselor Relationship Specialty Start Date End Date Anuradha Valencia MD [address] [phone] PCP - General Family Practice 05/05/13 documented as of this encounter
--- OUTSIDE RECORDS SUMMARY | 2025-04-12 09:40 | XMS_ITS | Encounter Summary ---
Author Organization [facility] Address [address] [place] [address] Care Team Providers Care Forest Ranger Name Role Phone Anuradha Valencia MD Primary Care Provider Encounter Details Date Type Department Care Team (Late st Contact Info) Description 04/12/2004 Outpatient Historical [facility] Kristi Brower, COMMERCIAL CREDIT LEAD [address] [place] [phone] Social History Tobacco Use Types Packs/Day Years Used Date Smoking Tobacco: Never Assessed Comments Unknown Sex and Gender Information Value Date Recorded Sex Assigned at Not on file Legal Sex Female 4:28 AM MEDICATION TECH Gender Identity Not on file Sexual Orientation Not on file documented as of this encounter Plan of Treatment Not on file documented as of this encounter Visit Diagnoses Not on filedocumented in this encounter Care Teams Forest Ranger Relationship Specialty Start Date End Date Anuradha Valencia MD [address] [facility] [address] [place] [phone] PCP - General Family Practice 05/05/13 documented as of this encounter
--- OUTSIDE RECORDS SUMMARY | 2025-04-12 09:40 | XMS_ITS | Encounter Summary ---
Author Organization [facility] Address [address] [place] [address] Care Team Providers Care Operations Systems Specialist Name Role Phone Anuradha Valencia MD Primary Care Provider [phone] Encounter Details Date Type Department Care Team (Latest Contact Info) Description 02/20/2004 Outpatient Historical [facility] OP [address] [place] [address] Pelon Nicekrson MD NO ADDRESS ON FILE OTHER LYMPHEDEMA (Primary Dx) Social History Tobacco Use Types Packs/Day Years Used Date Smoking Tobacco: Never Assessed Comments Unknown Sex and Gender Information Value Date Recorded Sex Assigned at Not on file Legal Sex Female 4:28 AM DRESSMAKER HELPER Gender Identity Not on file Sexual Orientation Not on file documented as of this encounter Plan of Treatment Not on file documented as of this encounter Visit Diagnoses Diagnosis Other lymphedema- Primary documented in this encounter Care Teams Operations Systems Specialist Relationship Specialty Start Date End Date Anuradha Valencia MD [address] [facility] [address] [place] [phone] PCP - General Family Practice 05/05/13 documented as of this encounter
--- OUTSIDE RECORDS SUMMARY | 2025-04-12 09:40 | XMS_ITS | Encounter Summary ---
Author Organization [facility] Address [address] [place] [address] Care Team Providers Care Otolaryngology Surgeon Name Role Phone Anuradha Valencia MD Primary Care Provider Encounter Details Date Type Department Care Team (Late st Contact Info) Description 05/20/2012 Ancillary Orders [facility] Admitting [address] [place] [address] Alli Arroyo, ZHANG NO ADDRESS ON FILE Shoulder injury Social History Tobacco Use Types Packs/Day Years Used Date Smoking Tobacco: Former Cigarettes 2.5 0 10/14/1961 - 04/14/1964 Alcohol Use Standard Drinks/Week Comments No 0 (1 standard drink = 0.6 oz pur e alcohol) Comments No Sex and Gender Information Value Date Recorded Sex Assigned at Not on file Legal Sex Female 4:28 AM PROOF TECHNICIAN HELPER Gender Identity Not on file Sexual Orientation Not on file Occupation Industry Job Start Date Job End Date Not on file Not on file Not on file Not on file documented as of this encounter Plan of Treatment Not on file documented as of this encounter Results * XR SHOULDER 2+ VW RIGHT (05/20/2012 3:18 PM PROOF TECHNICIAN HELPER) Anatomical Region Laterality Modality Upper Extremity Computed Radiogr aphy 05/20/2012 3:11 PM PROOF TECHNICIAN HELPER Narrative 05/21/2012 9:10 AM PROOF TECHNICIAN HELPER PROCEDURE XR RIGHT SHOULDER, three views 10/01 13 DESCRIPTION AP, Grashey, and tangential scapular lateral views of the right shoulder show no acute fracture or deformity. There are two metallic screw tendon anchors noted in the humeral head. No soft tissue calcification or osteophyte is appreciated at this time. Clothing artifact overlies the region of interest. IMPRESSION 1. postoperative changes 2. no acute changes seen Procedure Note Chris Broderick MD - 05/21/2012 PROCEDURE XR RIGHT SHOULDER, three views 10/01 13 DESCRIPTION AP, Grashey, and tangential scapular lateral views of the right shoulder show no acute fracture or deformity. There are two metallic screw tendon anchors noted in the humeral head. No soft tissue calcification or osteophyte is appreciated at this time. Clothing artifact overlies the region of interest. IMPRESSION 1. postoperative changes 2. no acute changes seen Alli [facility] ORDERABLES Final Result documented in this encounter Visit Diagnoses Diagnosis Shoulder injury Injury, other and unspecified, shoulder and upper arm Shoulder injury Injury, other and unspecified, shoulder and upper arm documented in this encounter Care Teams Otolaryngology Surgeon Relationship Specialty Start Date End Date Anuradha Valencia MD [address] [address] PCP - General Family Practice 05/05/13 documented as of this encounter
--- OUTSIDE RECORDS SUMMARY | 2025-04-12 09:40 | XMS_ITS | Encounter Summary ---
Author Organization [facility] Address [address] [place] [address] Care Team Providers Care Effervescent Salts Compounder Name Role Phone Anuradha Valencia MD Primary Care Provider Encounter Details Date Type Department Care Team (Latest Contact Info) Description 12/16/2003 Outpatient Historical [address] [phone] Alli Arroyo PA NO ADDRESS ON FILE ACUTE URI NOS (Primary Dx); CAROTID ART OCCL-NO INFARCT Social History Tobacco Use Types Packs/Day Years Used Date Smoking Tobacco: Never Assessed Comments Unknown Sex and Gender Information Value Date Recorded Sex Assigned at Not on file Legal Sex Female 4:28 AM HAND WRAPPER OPERATOR Gender Identity Not on file Sexual Orientation Not on file documented as of this encounter Plan of Treatment Not on file documented as of this encounter Visit Diagnoses Diagnosis Acute upper respiratory infections of unspecified site- Primary Occlusion and stenosis of carotid artery without mention of cerebral infarction documented in this encounter Care Teams Effervescent Salts Compounder Relationship Specialty Start Date End Date Anuradha Valencia MD [address] [facility] [address] [place] [address] PCP - General Family Practice 05/05/13 documented as of this encounter
--- OUTSIDE RECORDS SUMMARY | 2025-04-12 09:40 | XMS_ITS | Encounter Summary ---
Author Organization [facility] Address [address] [place] [address] Care Team Providers Care Undercover Cop Name Role Phone Anuradha Valencia MD Primary Care Provider Encounter Details Date Type Department Care Team (Latest Contact Info) Description 05/16/2004 Outpatient Historical [facility] Gen Spec Surg [address] [place] [address] Alli Armstrong MD NO ADDRESS ON FILE MALIGN NEOPL BREAST NOS (CMS/HCC) (Primary Dx); PERS HX OF BREAST MALIGNANCY Social History Tobacco Use Types Packs/Day Years Used Date Smoking Tobacco: Never Assessed Comments Unknown Sex and Gender Information Value Date Recorded Sex Assigned at Not on file Legal Sex Female 4:28 AM AD WRITER Gender Identity Not on file Sexual Orientation Not on file documented as of this encounter Plan of Treatment Not on file documented as of this encounter Visit Diagnoses Diagnosis Malignant neoplasm of breast (female), unspecified site- Primary Personal history of malignant neoplasm of breast documented in this encounter Care Teams Undercover Cop Relationship Specialty Start Date End Date Anuradha Valencia MD [address] [facility] [address] [place] [phone] PCP - General Family Practice 05/05/13 documented as of this encounter
--- OUTSIDE RECORDS SUMMARY | 2025-04-12 09:40 | XMS_ITS | Encounter Summary ---
Author Organization [facility] Address [address] [place] [address] Care Team Providers Care Note Keeper Name Role Phone Anuradha Valencia MD Primary Care Provider Encounter Details Date Type Department Care Team (Late st Contact Info) Description 03/30/2004 Outpatient Historical [facility] [address] [facility] [address] [place] [address] Mary Rolle MD NO ADDRESS ON FILE SCREENING MAMM-MAILG NEOPL-OTHER (Primary Dx); PERS HX OF BREAST MALIGNANCY Social History Tobacco Use Types Packs/Day Years Used Date Smoking Tobacco: Never Assessed Comments Unknown Sex and Gender Information Value Date Recorded Sex Assigned at Not on file Legal Sex Female 4:28 AM HEAD WOOD GRINDER Gender Identity Not on file Sexual Orientation Not on file documented as of this encounter Plan of Treatment Not on file documented as of this encounter Visit Diagnoses Diagnosis Other screening mammogram- Primary Personal history of malignant neoplasm of breast documented in this encounter Care Teams Note Keeper Relationship Specialty Start Date End Date Anuradha Valencia MD [address] [facility] [address] [place] [address] PCP - General Family Practice 05/05/13 documented as of this encounter
--- OUTSIDE RECORDS SUMMARY | 2025-04-12 09:40 | XMS_ITS | Encounter Summary ---
Author Organization [facility] Address [address] [place] [address] Care Team Providers Care Corporate Account Executive Name Role Phone Anuradha Valencia MD Primary Care Provider Encounter Details Date Type Department Care Team (Latest Contact Info) Description 11/11/2003 Outpatient Historical 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
--- OUTSIDE RECORDS SUMMARY | 2025-04-12 09:40 | XMS_ITS | Encounter Summary ---
Author Organization [facility] Address [address] [place] [address] Care Team Providers Care Assistant Director Of Nursing Name Role Phone Anuradha Valencia MD Primary Care Provider Encounter Details Date Type Department Care Team (Latest Contact Info) Description 04/04/2004 Outpatient Historical [address] [phone] Alli Arroyo PA NO ADDRESS ON FILE ACUTE URI NOS (Primary Dx) Social History Tobacco Use Types Packs/Day Years Used Date Smoking Tobacco: Never Assessed Comments Unknown Sex and Gender Information Value Date Recorded Sex Assigned at Not on file Legal Sex Female 4:28 AM BALLISTIC TECHNICIAN Gender Identity Not on file Sexual Orientation Not on file documented as of this encounter Plan of Treatment Not on file documented as of this encounter Visit Diagnoses Diagnosis Acute upper respiratory infections of unspecified site- Primary documented in this encounter Care Teams Assistant Director Of Nursing Relationship Specialty Start Date End Date Anuradha Valencia MD [address] [address] PCP - General Family Practice 05/05/13 documented as of this encounter
--- OUTSIDE RECORDS SUMMARY | 2025-04-12 09:40 | XMS_ITS | Encounter Summary ---
Author Organization [facility] Address [address] [place] [address] Care Team Providers Care Gate Agent Name Role Phone Anuradha Valencia MD Primary Care Provider Encounter Details Date Type Department Care Team (Late st Contact Info) Description 11/23/2003 Outpatient Historical [facility] Imaging Services [facility] [address] [place] [address] Social History Tobacco Use Types Packs/Day Years Used Date Smoking Tobacco: Never Assessed Comments Unknown Sex and Gender Information Value Date Recorded Sex Assigned at Not on file Legal Sex Female 4:28 AM DEPUTY DIRECTOR OF PUBLIC WORKS Gender Identity Not on file Sexual Orientation Not on file documented as of this encounter Plan of Treatment Not on file documented as of this encounter Visit Diagnoses Not on filedocumented in this encounter Care Teams Gate Agent Relationship Specialty Start Date End Date Anuradha Valencia MD [address] [facility] [address] [place] [address] PCP - General Family Practice 05/05/13 documented as of this encounter
--- OUTSIDE RECORDS SUMMARY | 2025-04-12 09:40 | XMS_ITS | Encounter Summary ---
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
--- OUTSIDE RECORDS SUMMARY | 2025-04-12 09:40 | XMS_ITS | Encounter Summary ---
Author Organization [facility] Address [address] [place] [address] Care Team Providers Care Csm Consultant Name Role Phone Anuradha Valencia MD Primary Care Provider +- [phone] Reason for Referral * Outpatient Services (Routine) - Closed Specialty Diagnoses / Procedures Referred By Mihir hernandez Referred To Contact Diagnoses Visit for screening mammogram Procedures MAMMO SCREEN UNI RIGHT W OR WO CAD MAMMO SCREEN BILAT W OR WO CAD Katiuska Sheldon MD [address] [address] Phone: tel: fax: [facility] Pre-Registration [place] CALL TO MAKE APPOINTMENT ONLY [address] [place] [address] Phone: tel: fax: Referral ID Status Reason Start Date Expiration Date Visits Re quested Visits Authorized [id number] Closed 06/06/2016 07/07/2017 1 1 ATRIC PHYSICAL THERAPY ASSISTANT Encounter Details Date Type Department Care Team (Latest Contact Info) Description 06/06/2016 Ancillary Orders [facility] Pre-Registration [place] CALL TO MAKE APPOINTMENT ONLY [address] [place] [address] Katiuska Sheldon MD [address] [facility] [address] [place] [phone] Visit for screening mammogram Social History Tobacco Use Types Packs/Day Years Used Date Smoking Tobacco: Former Cigarettes 2.5 0 10/14/1961 - 04/14/1964 Smokeless Tobacco: Never Alcohol Use Standard Drinks/Week Comments No 0 (1 standard drink = 0.6 oz pur e alcohol) Comments No Sex and Gender Information Value Date Recorded Sex Assigned at Not on file Legal Sex Female 4:28 AM PEDIATRIC PHYSICAL THERAPY ASSISTANT Gender Identity Not on file Sexual Orientation Not on file Occupation Industry Job Start Date Job End Date Not on file Not on file Not on file Not on file documented as of this encounter Plan of Treatment Not on file documented as of this encounter Results * MAMMO SCREEN UNI RIGHT W OR WO CAD (11/15/2016 2:20 PM CDT) Anatomical Region Laterality Modality Breast Right Mammography Narrative 11/18/2016 11:55 AM CDT Right Mammogram Reason for Exam: Screening Comparison: Compared to: 10/19/2015 MAMMO DIGITAL SCREEN UNI RIGHT, 10/06/2014 MAMMO DIGITAL SCREEN UNI RIGHT, 10/05/2013 MAMMO DIGITAL SCREEN UNI RIGHT, and 08/14/2012 MAMMO DIGITAL SCREEN UNI RIGHT Findings: Right CC and MLO views were obtained. This examination was reviewed with the aid of a computer-aided detection system(CAD). Breast Composition: There are scattered areas of fibroglandular density. Bilateral benign appearing calcifications are again noted. No significant new findings since the prior mammogram(s) Katiuska Sheldon MD MAMMO ORDERABLES Final Re sult documented in this encounter Visit Diagnoses Diagnosis Visit for screening mammogram Other screening mammogram Visit for screening mammogram Other screening mammogram documented in this encounter Care Teams Csm Consultant Relationship Specialty Start Date End Date Anuradha Valencia MD [address] [facility] [address] [place] [address] PCP - General Family Practice 05/05/13 documented as of this encounter
--- OUTSIDE RECORDS SUMMARY | 2025-04-12 09:40 | XMS_ITS | Encounter Summary ---
Author Organization [email or web address] Address [address] [place] [address] Care Team Providers Care Trimming Assembler Name Role Phone Anuradha Valencia MD Primary Care Provider Encounter Details Date Type Department Care Team (Late st Contact Info) Description 11/25/2003 Outpatient Historical [facility] Imaging Services [facility] [place] [address] Social History Tobacco Use Types Packs/Day Years Used Date Smoking Tobacco: Never Assessed Comments Unknown Sex and Gender Information Value Date Recorded Sex Assigned at Not on file Legal Sex Female 4:28 AM LABEL PINKER Gender Identity Not on file Sexual Orientation Not on file documented as of this encounter Plan of Treatment Not on file documented as of this encounter Visit Diagnoses Not on filedocumented in this encounter Care Teams Trimming Assembler Relationship Specialty Start Date End Date Anuradha Valencia MD [address] [facility] [address] [place] [phone] PCP - General Family Practice 05/05/13 documented as of this encounter
--- OUTSIDE RECORDS SUMMARY | 2025-04-12 09:40 | XMS_ITS | Encounter Summary ---
Author Organization [facility] [facility] Address [address] [place] [address] Care Team Providers Care Dye Range Operator Name Role Phone Anuradha Valencia MD Primary Care Provider Encounter Details Date Type Department Care Team (Latest Contact Info) Description 12/02/2003 Outpatient Historical [facility] 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
--- OUTSIDE RECORDS SUMMARY | 2025-04-12 09:40 | XMS_ITS | Encounter Summary ---
Author Organization [facility] Address [address] [place] [address] Care Team Providers Care Art Installer Name Role Phone Anuradha Valencia MD Primary Care Provider [phone] Encounter Details Date Type Department Care Team (Latest Contact Info) Description 11/11/2003 Outpatient Historical [facility] Gen Spec [place] [place] 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
--- OUTSIDE RECORDS SUMMARY | 2025-04-12 09:40 | XMS_ITS | Encounter Summary ---
Author Organization [facility] Address [address] [place] [address] Care Team Providers Care Demographer Name Role Phone Anuradha Valencia MD Primary Care Provider [phone] Reason for Referral * Outpatient Services (Routine) - Closed Specialty Diagnoses / Procedures Referred By Contac t Referred To Contact Diagnoses Other screening mammogram Procedures MAMMO DIGITAL SCREEN UNI RIGHT Pelon Nickerson MD NO ADDRESS ON FILE [email or web address] [email or web address] Pre-Registration [place] CALL TO MAKE APPOINTMENT ONLY [address] [facility] [place] [address] Phone: tel: fax: Referral ID Status Reason Start Date Expiration Date V isits Requested Visits Authorized [id number] Closed [facility] TO SCHEDULE ([facility] 06/16/2012 07/17/2013 1 1 OYEE BENEFITS SPECIALIST Encounter Details Date Type Department Care Team (Latest Contact Info) Description 06/16/2012 Ancillary Orders [email or web address] Pre-Registration [place] CALL TO MAKE APPOINTMENT ONLY [address] [place] [address] Pelon Nickerson MD NO ADDRESS ON FILE Other screening mammogram (Primary Dx) Social History Tobacco Use Types Packs/Day Years Used Date Smoking Tobacco: Former Cigarettes 2.5 0 10/14/1961 - 04/14/1964 Alcohol Use Standard Drinks/Week Comments No 0 (1 standard drink = 0.6 oz pur e alcohol) Comments No Sex and Gender Information Value Date Recorded Sex Assigned at Not on file 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 This examination was reviewed with the aid of a computer-aided detection system(CAD). The breast tissue density is average. No significant new findings since the prior mammogram(s) Procedure Note Rebecca Jones MD - 08/17/2012 Right Mammogram Reason for Exam: Screening Comparison: Comparison is made with the prior exam(s) dated 07.12.0511.6. [id number] Findings: Right CC and MLO views were obtained. This examination was reviewed with the aid of a computer-aided detectionsystem(CAD). The breast tissue density is average. No significant new findings since the prior mammogram(s) Pelon Nickerson MD MAMMO ORDERABLES Final Result documented in this encounter Visit Diagnoses Diagnosis Other screening mammogram- Primary Other screening mammogram documented in this encounter Care Teams Demographer Relationship Specialty Start Date End Date Anuradha Valencia MD [address] [facility] [address] [place] [address] PCP - General Family Practice 05/05/13 documented as of this encounter
--- OUTSIDE RECORDS SUMMARY | 2025-04-12 09:40 | XMS_ITS | Encounter Summary ---
Author Organization [facility] Address [address] [place] [address] Care Team Providers Care Recreation Activities Coordinator Name Role Phone Anuradha Valencia MD Primary Care Provider [phone] Encounter Details Date Type Department Care Team (Late st Contact Info) Description 10/23/2017 Ancillary Orders [facility] Pre-Registration [place] CALL TO MAKE APPOINTMENT ONLY [address] [place] [address] Anuradha Valencia MD [address] [address] Social History Tobacco Use Types Packs/Day Years Used Date Smoking Tobacco: Former Cigarettes 2.5 0 10/14/1961 - 04/14/1964 Smokeless Tobacco: Never Alcohol Use Standard Drinks/Week Comments No 0 (1 standard drink = 0.6 oz pur e alcohol) Comments No Sex and Gender Information Value Date Recorded Sex Assigned at Not on file 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
--- OUTSIDE RECORDS SUMMARY | 2025-04-12 09:40 | XMS_ITS | Encounter Summary ---
Author Organization [facility] Address [address] [place] [address] Care Team Providers Care Tire Recapper Name Role Phone Anuradha Valencia MD Primary Care Provider [phone] Encounter Details Date Type Department Care Team (Latest Contact Info) Description 01/27/2004 Outpatient Historical [facility] [address] Kristi Brower, OYSTER SORTER [address] [place] [address] Vaccine for influenza (Primary Dx) Social History Tobacco Use Types Packs/Day Years Used Date Smoking Tobacco: Never Assessed Comments Unknown Sex and Gender Information Value Date Recorded Sex Assigned at Not on file 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
--- OUTSIDE RECORDS SUMMARY | 2025-04-12 09:40 | XMS_ITS | Encounter Summary ---
Author Organization [facility] Address [address] [place] [address] Care Team Providers Care Harmonica Maker Name Role Phone Anuradha Valencia MD Primary Care Provider [phone]- [phone] Encounter Details Date Type Department Care Team (Latest Contact Info) Description 11/23/2003 Outpatient Historical [facility] Imaging Services [place] [id number] [facility] [place] [address] Pelon Nickerson MD NO ADDRESS ON FILE PAIN IN LIMB (Primary Dx) Social History Tobacco Use Types Packs/Day Years Used Date Smoking Tobacco: Never Assessed Comments Unknown Sex and Gender Information Value Date Recorded Sex Assigned at Not on file 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 [address] [place] [address] PCP - General Family Practice 05/05/13 documented as of this encounter
--- OUTSIDE RECORDS SUMMARY | 2025-04-12 09:40 | XMS_ITS | Encounter Summary ---
Author Organization [facility] Address [address] [place] [address] Care Team Providers Care Forest Resource Specialist Name Role Phone Anuradha Valencia MD Primary Care Provider [phone]- [phone] Encounter Details Date Type Department Care Team (Latest Contact Info) Description 01/20/2004 Outpatient Historical [facility] Physical Therapy [address] [place] [address] Pelon Nickerson MD NO ADDRESS ON FILE OTHER LYMPHEDEMA (Primary Dx) Social History Tobacco Use Types Packs/Day Years Used Date Smoking Tobacco: Never Assessed Comments Unknown Sex and Gender Information Value Date Recorded Sex Assigned at Not on file 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
--- OUTSIDE RECORDS SUMMARY | 2025-04-12 09:40 | XMS_ITS | Encounter Summary ---
Author Organization [employer] [facility] Address [address] [place] [address] Care Team Providers Care Content Designer Name Role Phone Anuradha Valencia MD Primary Care Provider Encounter Details Date Type Department Care Team (Late st Contact Info) Description 07/22/2016 Ancillary Orders [employer] [place] [address] [place] [address] Alli Arroyo, ZHANG NO ADDRESS ON FILE Bilateral chronic knee pain Social History Tobacco Use Types Packs/Day Years Used Date Smoking Tobacco: Former Cigarettes 2.5 0 10/14/1961 - 04/14/1964 Smokeless Tobacco: Never Alcohol Use Standard Drinks/Week Comments No 0 (1 standard drink = 0.6 oz pur e alcohol) Comments No Sex and Gender Information Value Date Recorded Sex Assigned at Not on file 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 Exam: XR KNEES AP BILAT STANDING Date/Time of Exam: 07/22/2016 10:21 AM Reason For Exam: Bilateral chronic knee pain,Bilateral chronic knee pain,Bilateral chronic knee pain Comparison: None. Findings: AP standing views of the knees demonstrate no acute fracture or secondary sign of dislocation. Severe bilateral medial compartment joint space loss, right greater than left is identified. A bone on bone appearance on the right is present. Sharpening of the tibial spines and marginal osteophyte formation of the medial compartments identified bilaterally. Mild marginal osteophyte formation of the lateral compartment on the right is seen. Impression: 1. Negative for acute osseous abnormality. 2. Severe bilateral medial compartment joint space loss, right greater than left. A bone on bone appearance on the right is present. Narrative Procedure Note William Alexander MD - 07/22/2016 IMPRESSION IMPRESSION: Please see below. Exam: XR KNEES AP BILAT STANDING Date/Time of Exam: 07/22/2016 10:21 AM Reason For Exam: Bilateral chronic knee pain,Bilateral chronic knee pain,Bilateral chronic knee pain Comparison: None. Findings: AP standing views of the knees demonstrate no acute fracture or secondary sign of dislocation. Severe bilateral medial compartment joint space loss, right greater than left is identified. A bone on bone appearance on the right is present. Sharpening of the tibial spines and marginal osteophyte formation of the medial compartments identified bilaterally. Mild marginal osteophyte formation of the lateral compartment on the right is seen. Impression: 1. Negative for acute osseous abnormality. 2. Severe bilateral medial compartment joint space loss, right greater than left. A bone on bone appearance on the right is present. Alli [facility] ORDERABLES Final Result documented in this encounter Visit Diagnoses Diagnosis Bilateral chronic knee pain Pain in joint, lower leg Bilateral chronic knee pain Pain in joint, lower leg documented in this encounter Care Teams Content Designer Relationship Specialty Start Date End Date Anuradha Valencia MD [address] [phone] PCP - General Family Practice 05/05/13 documented as of this encounter
--- OUTSIDE RECORDS SUMMARY | 2025-04-12 09:40 | XMS_ITS | Encounter Summary ---
Author Organization [facility] Address [address] [place] [address] Care Team Providers Care Fish Farm Laborer Name Role Phone Anuradha Valencia MD Primary Care Provider [phone]- [phone] Encounter Details Date Type Department Care Team (Latest Contact Info) Description 11/17/2018 Ancillary Orders [facility] Pre-Registration [place] CALL TO MAKE APPOINTMENT ONLY [address] [place] [address] Alli Arroyo PA NO ADDRESS ON FILE Visit for screening mammogram Social History Tobacco Use Types Packs/Day Years Used Date Smoking Tobacco: Former Cigarettes 2.5 0 10/14/1961 - 04/14/1964 Smokeless Tobacco: Never Alcohol Use Standard Drinks/Week Comments No 0 (1 standard drink = 0.6 oz pur e alcohol) Comments No Sex and Gender Information Value Date Recorded Sex Assigned at Not on file 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
--- OUTSIDE RECORDS SUMMARY | 2025-04-12 09:40 | XMS_ITS | Encounter Summary ---
Author Organization [facility] Address [address] [place] [address] Care Team Providers Care Business Transformation Manager Name Role Phone Anuradha Valencia MD Primary Care Provider [phone]- [phone] Encounter Details Date Type Department Care Team (Late st Contact Info) Description 07/22/2016 Ancillary Orders [facility] [place] [address] [facility] [address] [place] [phone] Alli Arroyo PA NO ADDRESS ON FILE Chronic pain of both knees Social History Tobacco Use Types Packs/Day Years Used Date Smoking Tobacco: Former Cigarettes 2.5 0 10/14/1961 - 04/14/1964 Smokeless Tobacco: Never Alcohol Use Standard Drinks/Week Comments No 0 (1 standard drink = 0.6 oz pur e alcohol) Comments No Sex and Gender Information Value Date Recorded Sex Assigned at Not on file 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 Exam: XR KNEE 3 VW BILAT Date/Time of Exam: 07/22/2016 10:20 AM Reason For Exam: Chronic pain of both knees, Chronic pain of both knees, Chronic pain of both knees Comparison: AP standing knee radiographs 07/22/2016. Findings: Three views of the knees demonstrate no acute fracture or dislocation. No effusion of either suprapatellar pouch is seen. Severe bilateral medial compartment joint space loss, right greater than left is present. Tricompartmental marginal osteophyte formation greatest medially is noted. Vascular calcification is present. Impression: 1. Negative for acute osseous abnormality. 2. 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 3. Atherosclerotic disease. [id number] Narrative Procedure Note William Alexander MD - 07/22/2016 IMPRESSION IMPRESSION: Please see below. Exam: XR KNEE 3 VW BILAT Date/Time of Exam: 07/22/2016 10:20 AM Reason For Exam: Chronic pain of both knees, Chronic pain of both knees, Chronic pain of both knees Comparison: AP standing knee radiographs 07/22/2016. Findings: Three views of the knees demonstrate no acute fracture or dislocation. No effusion of either suprapatellar pouch is seen. Severe bilateral medial compartment joint space loss, right greater than left is present. Tricompartmental marginal osteophyte formation greatest medially is noted. Vascular calcification is present. Impression: 1. Negative for acute osseous abnormality. 2. 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 3. Atherosclerotic disease. [id number] Alli [facility] ORDERABLES Final Result documented in this encounter Visit Diagnoses Diagnosis Chronic pain of both knees Chronic pain of both knees documented in this encounter Care Teams Business Transformation Manager Relationship Specialty Start Date End Date Anuradha Valencia MD [address] [phone] PCP - General Family Practice 05/05/13 documented as of this encounter
--- OUTSIDE RECORDS SUMMARY | 2025-04-12 09:40 | XMS_ITS | Encounter Summary ---
Author Organization [facility] Address [address] [place] [address] Care Team Providers Care Felt Tipping Machine Tender Name Role Phone Anuradha Valencia MD Primary Care Provider Encounter Details Date Type Department Care Team (Latest Contact Info) Description 04/12/2004 Outpatient Historical [facility] Family Medicine [address] [phone] Bonnie Bolanos MD NO ADDRESS ON FILE ACUTE URI NOS (Primary Dx) Social History Tobacco Use Types Packs/Day Years Used Date Smoking Tobacco: Never Assessed Comments Unknown Sex and Gender Information Value Date Recorded Sex Assigned at Not on file 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
--- OUTSIDE RECORDS SUMMARY | 2025-04-12 09:40 | XMS_ITS | Encounter Summary ---
Author Organization [facility] Address [address] [place] [address] Care Team Providers Care Business Process Analyst Name Role Phone Anuradha Valencia MD Primary Care Provider Encounter Details Date Type Department Care Team (Latest Contact Info) Description 10/23/2017 Ancillary Orders [facility] Pre-Registration [place] CALL TO MAKE APPOINTMENT ONLY [address] [place] [address] Anuradha Valencia MD [facility] [address] [phone] Breast cancer screening Social History Tobacco Use Types Packs/Day Years Used Date Smoking Tobacco: Former Cigarettes 2.5 0 10/14/1961 - 04/14/1964 Smokeless Tobacco: Never Alcohol Use Standard Drinks/Week Comments No 0 (1 standard drink = 0.6 oz pur e alcohol) Comments No Sex and Gender Information Value Date Recorded Sex Assigned at Not on file 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
--- OUTSIDE RECORDS SUMMARY | 2025-04-12 09:40 | XMS_ITS | Encounter Summary ---
Author Organization [facility] Address [address] [place] [address] Care Team Providers Care Bag Machine Operator Name Role Phone Anuradha Valencia MD Primary Care Provider [phone] Encounter Details Date Type Department Care Team (Latest Contact Info) Description 12/21/2003 Outpatient Historical [facility] Pelon Nickerson MD NO ADDRESS ON FILE SHORTNESS OF BREATH (Primary Dx) Social History Tobacco Use Types Packs/Day Years Used Date Smoking Tobacco: Never Assessed Comments Unknown Sex and Gender Information Value Date Recorded Sex Assigned at Not on file 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
--- OUTSIDE RECORDS SUMMARY | 2025-04-12 09:40 | XMS_ITS | Encounter Summary ---
Author Organization [facility] Address [address] [place] [address] Care Team Providers Care Computer Technology Instructor Name Role Phone Anuradha Valencia MD Primary Care Provider Encounter Details Date Type Department Care Team (Latest Contact Info) Description 11/25/2003 Outpatient Historical [facility] Services [address] [place] [address] Pelon Nickerson MD NO ADDRESS ON FILE SWELLING IN HEAD & NECK (Primary Dx) Social History Tobacco Use Types Packs/Day Years Used Date Smoking Tobacco: Never Assessed Comments Unknown Sex and Gender Information Value Date Recorded Sex Assigned at Not on file Legal Sex Female 4:28 AM VP SECURITY Gender Identity Not on file Sexual Orientation Not on file documented as of this encounter Plan of Treatment Not on file documented as of this encounter Visit Diagnoses Diagnosis Swelling, mass, or lump in head and neck- Primary documented in this encounter Care Teams Computer Technology Instructor Relationship Specialty Start Date End Date Anuradha Valencia MD [address] [facility] [address] [place] [address] PCP - General Family Practice 05/05/13 documented as of this encounter
--- OUTSIDE RECORDS SUMMARY | 2025-04-12 09:40 | XMS_ITS | Encounter Summary ---
Author Organization [facility] Address [address] [facility] [place] [address] Care Team Providers Care Pilot Plant Research Technician Name Role Phone Anuradha Valencia MD Primary Care Provider [phone] Reason for Referral * Outpatient Services (Routine) - Closed Specialty Diagnoses / Procedures Referred By Mihir hernandez Referred To Contact Diagnoses Encounter for screening mammogram for breast cancer Procedures MAMMO DIGITAL SCREEN UNI RIGHT Pelon Nickerson MD [facility] Pre-Registration [place] CALL TO MAKE APPOINTMENT ONLY [address] [place] [facility] [place] [address] Phone: tel: fax: Referral ID Status Reason Start Date Expiration Date Visits Re quested Visits Authorized [id number] Closed 10/03/2015 11/02/2016 1 1 Encounter Details Date Type Department Care Team (Latest Contact Info) Description 10/03/2015 Ancillary Orders [facility] Pre-Registration [place] CALL TO MAKE APPOINTMENT ONLY [address] [place] [address] Pelon Nickerson MD NO ADDRESS ON FILE Encounter for screening mammogram for breast cancer (Primary Dx) Social History Tobacco Use Types Packs/Day Years Used Date Smoking Tobacco: Former Cigarettes 2.5 0 10/14/1961 - 04/14/1964 Smokeless Tobacco: Never Alcohol Use Standard Drinks/Week Comments No 0 (1 standard drink = 0.6 oz pur e alcohol) Comments No Sex and Gender Information Value Date Recorded Sex Assigned at Not on file 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 Gender Identity Not on file Sexual Orientation Not on file Occupation Industry Job Start Date Job End Date Not on file Not on file Not on file Not on file documented as of this encounter Plan of Treatment Not on file documented as of this encounter Results * MAMMO DIGITAL SCREEN UNI RIGHT (10/19/2015 12:58 PM CDT) Anatomical Region Laterality Modality Breast Right Mammography Narrative 10/19/2015 3:55 PM CDT Right Mammogram Reason for Exam: Screening Comparison: Compared to: 10/06/2014 MAMMO DIGITAL SCREEN UNI RIGHT, 10/05/2013 MAMMO DIGITAL SCREEN UNI RIGHT, 08/14/2012 MAMMO DIGITAL SCREEN UNI RIGHT, 07/04/2011 MAMMO DIGITAL SCREEN UNI RIGHT, 04/27/2010 MAMMO DIGITAL SCREEN UNI RIGHT, 02/17/2009 MAMMO DIGITAL SCREEN UNI RIGHT Findings: Right CC and MLO views were obtained. This examination was reviewed with the aid of a computer-aided detection system(CAD). The breast tissue density is average. No significant new findings since the prior mammogram(s) Pelon Nickerson MD MAMMO ORDERABLES Final Result documented in this encounter Visit Diagnoses Diagnosis Encounter for screening mammogram for breast cancer- Primary Encounter for screening mammogram for breast cancer documented in this encounter Care Teams Pilot Plant Research Technician Relationship Specialty Start Date End Date Anuradha Valencia MD [address] [facility] [address] [place] [address] PCP - General Family Practice 05/05/13 documented as of this encounter
--- OUTSIDE RECORDS SUMMARY | 2025-04-12 09:40 | XMS_ITS | Encounter Summary ---
Author Organization [facility] Address [address] [facility] [place] [address] Care Team Providers Care Chapter Relations Administrator Name Role Phone Anuradha Valencia MD Primary Care Provider Encounter Details Date Type Department Care Team (Late st Contact Info) Description 10/23/2017 Ancillary Orders [facility] [address] [facility] [address] [place] [address] Anuradha Valencia MD [address] [address] Social History Tobacco Use Types Packs/Day Years Used Date Smoking Tobacco: Former Cigarettes 2.5 0 10/14/1961 - 04/14/1964 Smokeless Tobacco: Never Alcohol Use Standard Drinks/Week Comments No 0 (1 standard drink = 0.6 oz pur e alcohol) Comments No Sex and Gender Information Value Date Recorded Sex Assigned at Not on file 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
--- OUTSIDE RECORDS SUMMARY | 2025-04-12 09:40 | XMS_ITS | Clinical Summary ---
Author Organization [facility] Address [address] [facility] [place] [address] Care Team Providers Care Test Conductor Name Role Phone Anuradha Valencia MD Primary Care Provider Allergies Active Allergy Reactions Criticality Noted Date Comments Fexofenadine-Pseudoeph edrine Other (See Comments) 07/18/2008 Puts me into Shock Lisinopril Nausea and Vomiting Low 12/06/2014 Loratadine Other (See Comments) 07/18/2008 Puts me into Shock Medications atenoloL (TENORMIN) 100 mg tablet Take 1 Tablet (100 mg) by mouth daily. 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 07/27/2008 03/10/2019 DVT (deep venous thrombosis) 07/27/2008 03/10/2019 Immunizations Immunization Administration Dates Next Due (ADACEL/BOOSTRIX)(10 YR UP) TDAP VACCINE, 0.5ML, IM 10/25/2015 (PNEUMOVAX 23)(50 YRS UP) PN EUMOCOCCAL POLYSACCHARIDE (PPV23) 0.5 ML, IM 02/18/2003,04/05/2002 INFLUENZA VACCINE HIGH DOSE QUADRIVALENT 65 YR UP PF IM 03/30/2020 Influenza Seasonal Unspecifi ed Formulation IM 01/20/2007,01/27/2004,01/21/2003 Influenza Vaccine High Dose 65+ Yrs IM 9,01/06/2017 Family History Medical History Relation Name Comments Heart Disease Brother Unknown Daughter Cancer Father Breast Cancer Maternal Cousin positve res ponse form to counselor see media tab-see media tab Unknown Maternal Grandfather Heart Disease Mother Breast Cancer Other Self Unknown Paternal Grandfather Heart Disease Paternal Grandmother Respiratory Disease Sister Healthy Son Colon Cancer Neg Hx Relation Name Status Comments Brother Alive Daughter Father Maternal Cousin Maternal Grandfather Mother Other Self Alive Paternal Grandfather Paternal Grandmother Sister Alive Son Alive Social History Tobacco Use Types Packs/Day Years Used Date Smoking Tobacco: Former Cigarettes 2.5 0 10/14/1961 - 04/14/1964 Smokeless Tobacco: Never Tobacco Cessation:Counseling Given: Yes Alcohol Use Standard Drinks/Week Comments No 0 (1 standard drink = 0.6 oz pur e alcohol) Social Connections Answer Date Recorded In a typical week, how many times do you talk on the phone with family, friends, or neighbors? More than three times a week 03/30/2020 How often do you get togethe r with friends or relatives? More than three times a week 03/30/2020 How often do you attend chur ch or religion services? More than 4 times per year 03/30/2020 Do you belong to any clubs o r organizations such as faith groups, unions, fraternal or athletic groups, or school groups? Yes 03/30/2020 Attends Club or Organization Meetings Not on anahy e 03/30/2020 Marital Status Not on file 03/30/2020 Financial Resource Strain Answer Date R ecorded How hard is it for you to pa y for the very basics like food, housing, medical care, and heating? Not hard at all 03/30/2020 Food Insecurity Answer Date Recorded Within the past 12 months, y ou worried that your food would run out before you got the money to buy more. Never true 03/30/20 20 Within the past 12 months, t he food you bought just didn't last and you didn't have money to get more. Never true 03/30/2020 Transportation Needs Answer Date Record ed In the past 12 months, has l ack of transportation kept you from medical appointments or from getting medications? No 03/14 In the past 12 months, has l ack of transportation kept you from meetings, work, or from getting things needed for daily living? No 03/30/2020 Education Answer Date Recorded What is the highest level of school you have completed or the highest degree you have received? 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 Gender Identity Not on file Sexual Orientation Not on file Occupation Industry Job Start Date Job End Date Not on file Not on file Not on file Not on file Last Filed Vital Signs Vital Sign Reading Time Taken Comments Blood Pressure 128/70 08/04/2020 10:33 AM CDT Pulse 64 08/04/2020 10:33 AM CDT Temperature 36.6 C (97.9 F) 08/04/2020 10:33 AM CDT Respiratory Rate 24 08/04/2020 10:33 AM CDT Oxygen Saturation 97% 08/04/2020 10:33 AM CDT Inhaled Oxygen Concentration - - Weight 108 kg (238 lb) 08/04/2020 10:33 AM CDT Height 157.5 cm (5' 2 ) 08/04/2020 10:33 AM CDT Body Mass Index 43.53 08/04/2020 10:33 AM CDT Plan of Treatment Health Maintenance Due Date Last Done Comments ZOSTER VACCINE (1 of 2) 02/10/1990 PNEUMOCOCCAL VACCINE 50+ YEA RS (2 of 2 - PCV) 02/19/2004 02/18/2003, 04/05/2002 OSTEOPOROSIS SCREENING 02/10/2005 RSV VACCINE (60+ or ) (1 - 1-dose 75+ series) 02/10/2015 INFLUENZA VACCINE (#1) 2024 0, 03/10/2019, 05/28/2018, Additional history exists DTAP/TDAP/TD VACCINES (2 - T d or Tdap) 10/24/2025 10/25/2015 Medical Devices Implanted Type Area Tool Repair Technician Device Identifier Shelf Expiration Date Model / Serial / Lot Mesh Ventralight St 4x6in [id number] - Sna Implanted:Qty: 1 on 12/10/2012 by Chema Mendez MD at [facility] Mesh N/A: Abdomen CR [employer] 09/11/2014 [id number] / NA / [id number] Description:iMPLANT OF MESH to abd. FOR UMBILCAL HERNIA REPAIR.... Advance Directives For more information, please contact: [phone] * Full Code (Latest Code Status on File) Date Activated Date Inactivated Comments 12/10/2012 6:58 AM 12/10/2012 2:47 PM * Full Code Date Activated Date Inactivated Comments 12/10/2012 4:57 AM 12/10/2012 6:58 AM Care Teams Test Conductor Relationship Specialty Start Date End Date Anuradha Valencia MD [address] [phone] PCP - General Family Practice 05/05/13
--- OUTSIDE RECORDS SUMMARY | 2025-04-12 09:40 | XMS_ITS | Encounter Summary ---
Author Organization [facility] Address [address] [place] [address] Care Team Providers Care Lead Pressman Roto Gravure Printing Name Role Phone Anuradha Valencia MD Primary Care Provider Encounter Details Date Type Department Care Team (Late st Contact Info) Description 03/16/2004 Outpatient Historical [facility] Medicine[address] [phone] Social History Tobacco Use Types Packs/Day Years Used Date Smoking Tobacco: Never Assessed Comments Unknown Sex and Gender Information Value Date Recorded Sex Assigned at Not on file 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
--- OUTSIDE RECORDS SUMMARY | 2025-04-12 09:40 | XMS_ITS | Encounter Summary ---
Author Organization [facility] Address [address] [facility] [place] [address] Care Team Providers Care Metal Cabinet Finisher Name Role Phone Anuradha Valencia MD Primary Care Provider Reason for Referral * Outpatient Services (Routine) - Closed Specialty Diagnoses / Procedures Referred By Mihir t Referred To Contact Diagnoses Other screening mammogram Personal history of malignant neoplasm of breast Procedures MAMMO DIGITAL SCREEN UNI RIGHT Pelon Nickerson MD NO ADDRESS ON FILE Referral ID Status Reason Start Date Expiration Date Visits Re quested Visits Authorized [id number] Closed 01/18/2010 07/17/2010 1 1 Encounter Details Date Type Department Care Team (Late st Contact Info) Description 01/18/2010 Ancillary Orders [facility] [address] [facility] [address] [place] [address] Pelon Nickerson MD NO ADDRESS ON FILE Other screening mammogram; Personal history of malignant neoplasm of breast Social History Tobacco Use Types Packs/Day Years Used Date Smoking Tobacco: Former Cigarettes 2.5 0 10/14/1961 - 04/14/1964 Alcohol Use Standard Drinks/Week Comments No 0 (1 standard drink = 0.6 oz pur e alcohol) Comments No Sex and Gender Information Value Date Recorded Sex Assigned at Not on file 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 This examination was reviewed with the aid of a computer-aided detection system(CAD). The breast tissue density is average. Prominent blood vessels are again noted. Patient is status-post left mastectomy. No significant new findings since the prior mammogram(s) Procedure Note Mary Rolle MD - 04/30/2010 Right Mammogram Reason for Exam: Screening Comparison: Comparison is made with the prior exam(s) dated [id number] Findings: Right CC and MLO views were obtained. This examination was reviewed with the aid of a computer-aided detectionsystem(CAD). The breast tissue density is average. Prominent blood vessels are againnoted. Patient is status-post left mastectomy. No significant new findings since the prior mammogram(s) Pelon Nickerson MD MAMMO ORDERABLES Final Result documented in this encounter Visit Diagnoses Diagnosis Other screening mammogram Personal history of malignant neoplasm of breast Other screening mammogram Personal history of malignant neoplasm of breast documented in this encounter Care Teams Metal Cabinet Finisher Relationship Specialty Start Date End Date Anuradha Valencia MD [address] [facility] [address] [place] [address] PCP - General Family Practice 05/05/13 documented as of this encounter
--- OUTSIDE RECORDS SUMMARY | 2025-04-12 09:40 | XMS_ITS | Encounter Summary ---
Author Organization [facility] Address [address] [place] [address] Care Team Providers Care Vacuum Cleaner Repairer Name Role Phone Anuradha Valencia MD Primary Care Provider [phone]- [phone] Encounter Details Date Type Department Care Team (Latest Contact Info) Description 10/31/2003 Outpatient Historical [facility] [address] [place] [phone] Arsh Avery MD NO ADDRESS ON FILE ABNORMAL FUNCTION STUDY NEC (Primary Dx) Social History Tobacco Use Types Packs/Day Years Used Date Smoking Tobacco: Never Assessed Comments Unknown Sex and Gender Information Value Date Recorded Sex Assigned at Not on file 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
--- OUTSIDE RECORDS SUMMARY | 2025-04-12 09:40 | XMS_ITS | Encounter Summary ---
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
--- OUTSIDE RECORDS SUMMARY | 2025-04-12 09:40 | XMS_ITS | Encounter Summary ---
Author Organization [employer] [facility] Address [address] [place] [address] Care Team Providers Care Enforcement Manager Name Role Phone Anuradha Valencia MD Primary Care Provider +1- [phone] Encounter Details Date Type Department Care Team (Latest Contact Info) Description 03/30/2004 Outpatient [facility] Breast Center [facility] [address] [place] [address] Pelon Nickerson MD NO ADDRESS ON FILE SCREENING MAMM-MAILG NEOPL-OTHER (Primary Dx) Social History Tobacco Use Types Packs/Day Years Used Date Smoking Tobacco: Never Assessed Comments Unknown Sex and Gender Information Value Date Recorded Sex Assigned at Not on file 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
--- OUTSIDE RECORDS SUMMARY | 2025-04-12 09:40 | XMS_ITS | Encounter Summary ---
Author Organization [facility] Address [address] [place] [address] Care Team Providers Care Ground Support Agent Name Role Phone Anuradha Valencia MD Primary Care Provider +1- [phone] Encounter Details Date Type Department Care Team (Latest Contact Info) Description 01/06/2004 Outpatient Historical [facility] [address] [place] [phone] Pelon Nickerson MD NO ADDRESS ON FILE MALIGN NEOPL BREAST NOS (CMS/HCC) (Primary Dx) Social History Tobacco Use Types Packs/Day Years Used Date Smoking Tobacco: Never Assessed Comments Unknown Sex and Gender Information Value Date Recorded Sex Assigned at Not on file 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
--- OUTSIDE RECORDS SUMMARY | 2025-04-12 09:40 | XMS_ITS | Encounter Summary ---
Author Organization [facility] Address [address] [place] [address] Care Team Providers Care Automotive Engineering Technician Name Role Phone Anuradha Valencia MD Primary Care Provider [phone]- [phone] Encounter Details Date Type Department Care Team (Latest Contact Info) Description 12/12/2003 Outpatient Historical [address] [phone] Alli Arroyo [place] NO ADDRESS ON FILE ACUTE BRONCHITIS (Primary Dx) Social History Tobacco Use Types Packs/Day Years Used Date Smoking Tobacco: Never Assessed Comments Unknown Sex and Gender Information Value Date Recorded Sex Assigned at Not on file 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
--- OUTSIDE RECORDS SUMMARY | 2025-04-12 09:40 | XMS_ITS | Encounter Summary ---
Author Organization [facility] Address [address] [place] [address] Care Team Providers Care Figure Model Name Role Phone Anuradha Valencia MD Primary Care Provider [phone] Encounter Details Date Type Department Care Team (Latest Contact Info) Description 11/21/2003 Outpatient Historical [facility] [address] [place] [address] Pelon Nickerson MD NO ADDRESS ON FILE MALIGN NEOPL BREAST NOS (CMS/HCC) (Primary Dx) Social History Tobacco Use Types Packs/Day Years Used Date Smoking Tobacco: Never Assessed Comments Unknown Sex and Gender Information Value Date Recorded Sex Assigned at Not on file 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
--- OUTSIDE RECORDS SUMMARY | 2025-04-12 09:41 | XMS_ITS | Encounter Summary ---
Author Organization [facility] Address [address] [place] [address] Care Team Providers Care Facility Security Officer Name Role Phone Anuradha Valencia MD Primary Care Provider Encounter Details Date Type Department Care Team (Latest Contact Info) Description 12/06/2004 Outpatient Historical [facility] Alli Armstrong MD NO ADDRESS ON FILE LUMP OR MASS IN BREAST (Primary Dx) Social History Tobacco Use Types Packs/Day Years Used Date Smoking Tobacco: Never Assessed Comments Unknown Sex and Gender Information Value Date Recorded Sex Assigned at Not on file 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
--- OUTSIDE RECORDS SUMMARY | 2025-04-12 09:41 | XMS_ITS | Encounter Summary ---
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 No / Unsure 09/24/2019 12:01 PM CDT documented as of this encounter Plan of Treatment Not on file documented as of this encounter Visit Diagnoses Diagnosis Visit for screening mammogram Other screening mammogram documented in this encounter Additional Health Concerns Assessment Noted Time PHQ-9 Depression Total Score: 1 08/23/19 20 9:44 AM CDT documented as of this encounter Care Teams Pipe Connector Relationship Specialty Start Date End Date Anuradha Valencia MD [address] [phone] PCP - General Family Practice 05/05/13 documented as of this encounter
--- OUTSIDE RECORDS SUMMARY | 2025-04-12 09:41 | XMS_ITS | Encounter Summary ---
Author Organization [facility] Address [address] [place] [address] Care Team Providers Care Osteologist Name Role Phone Anuradha Valencia MD Primary Care Provider [phone] Encounter Details Date Type Department Care Team (Latest Contact Info) Description 07/19/2002 Outpatient Historical [facility]- [address] [phone] Rolly Kothari MD [address] [phone] ACUTE BRONCHITIS (Primary Dx); MALIGN NEOPL BREAST NOS (CMS/HCC) Social History Tobacco Use Types Packs/Day Years Used Date Smoking Tobacco: Never Assessed Comments Unknown Sex and Gender Information Value Date Recorded Sex Assigned at Not on file 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
--- OUTSIDE RECORDS SUMMARY | 2025-04-12 09:41 | XMS_ITS | Encounter Summary ---
Author Organization [facility] Address [address] [place] [address] Care Team Providers Care Practical Nursing Instructor Name Role Phone Anuradha Valencia MD Primary Care Provider Encounter Details Date Type Department Care Team (Latest Contact Info) Description 09/15/1998 Outpatient Historical [address] [phone] Radhames Pearson, NO ADDRESS ON FILE Urinary tract infection, site not specified (Primary Dx); Unspecified essential hypertension Social History Tobacco Use Types Packs/Day Years Used Date Smoking Tobacco: Never Assessed Comments Unknown Sex and Gender Information Value Date Recorded Sex Assigned at Not on file 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
--- OUTSIDE RECORDS SUMMARY | 2025-04-12 09:41 | XMS_ITS | Encounter Summary ---
Author Organization [facility] Address [address] [place] [address] Care Team Providers Care Banana Room Cutter Name Role Phone Anuradha Valencia MD Primary Care Provider Encounter Details Date Type Department Care Team (Latest Contact Info) Description 05/12/1998 Outpatient Historical [facility]- [address] [phone] Radhames Pearson DO NO ADDRESS ON FILE Urinary tract infection, site not specified (Primary Dx) Social History Tobacco Use Types Packs/Day Years Used Date Smoking Tobacco: Never Assessed Comments Unknown Sex and Gender Information Value Date Recorded Sex Assigned at Not on file 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
--- OUTSIDE RECORDS SUMMARY | 2025-04-12 09:41 | XMS_ITS | Encounter Summary ---
Author Organization [facility] Address [address] [place] [address] Care Team Providers Care Front Worker Name Role Phone Anuradha Valencia MD Primary Care Provider Reason for Referral * Radiology Services (Routine) - Closed Specialty Diagnoses / Procedures Referred By Mihir t Referred To Contact Radiology Diagnoses Visit for screening mammogram Procedures MAMMO SCRN UNI RT 3D KELLY W OR WO CAD MAMMO SCRN BILAT 3D KELLY W OR WO CAD CHG SCREENING MAMMOGRAPHY BI 2-VIEW BREAST INC CAD CHG SCREENING DIGITAL BREAST TOMOSYNTHESIS BI CHG SCREENING MAMMOGRAPHY BI 2-VIEW BREAST INC CAD CHG SCREENING DIGITAL BREAST TOMOSYNTHESIS BI Alli Arroyo PA [facility] Breast [place] [address] [address] Phone: tel: fax: Referral ID Status Reason Start Date Expiration Date Visits Re quested Visits Authorized [id number] Closed 11/17/2018 12/18/2019 1 1 Encounter Details Date Type Department Care Team (Latest Contact Info) Description 12/18/2018 Ancillary Orders [facility] Pre-Registration [place] CALL TO MAKE APPOINTMENT ONLY [address] [place] [address] Alli Arroyo PA NO ADDRESS [...] on file 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 Gender Identity Not on file Sexual Orientation Not on file Occupation Industry Job Start Date Job End Date Not on file Not on file Not on file Not on file documented as of this encounter Plan of Treatment Not on file documented as of this encounter Results * MAMMO SCRN UNI RT 3D KELLY W OR WO CAD (12/18/2018 11:39 AM CDT) Anatomical Region Laterality Modality Breast Right Mammography Narrative 12/21/2018 1:11 PM CDT Right Digital Mammogram with CAD and 3D Tomography Reason for Exam: Screening Comparison: Compared to: 12/16/2017 MAMMO SCRN UNI RT 3D EKLLY W OR WO CAD, 11/15/2016 MAMMO SCREEN UNI RIGHT W OR WO CAD, 10/19/2015 MAMMO DIGITAL SCREEN UNI RIGHT, 10/06/2014 MAMMO DIGITAL SCREEN UNI RIGHT, and 10/05/2013 MAMMO DIGITAL SCREEN UNI RIGHT Technique: 3D MLO and CC digital tomosynthesis images were acquired and synthesized 2D images (C view) were generated. This digital mammogram was also analyzed by the Computer Aided Detection System CAD). Breast Composition: There are scattered areas of fibroglandular density. Benign appearing calcifications are again noted. There are no suspicious masses, areas of architectural distortions, or microcalcifications to suggest malignancy. No significant new findings since the prior mammogram(s). Alli HOLCOMB MAMMO ORDERABLES Final Result documented in this encounter Visit Diagnoses Diagnosis Visit for screening mammogram Other screening mammogram Visit for screening mammogram Other screening mammogram documented in this encounter Care Teams Front Worker Relationship Specialty Start Date End Date Anuradha Valencia MD [address] [facility] [address] [place] [address] PCP - General Family Practice 05/05/13 documented as of this encounter
--- OUTSIDE RECORDS SUMMARY | 2025-04-12 09:41 | XMS_ITS | Encounter Summary ---
Author Organization [facility] Address [address] [place] [address] Care Team Providers Care Spinner Fixer Name Role Phone Anuradha Valencia MD Primary Care Provider [phone] Encounter Details Date Type Department Care Team (Latest Contact Info) Description 02/01/2000 Outpatient Historical [address] [phone] Radhames Pearson DO NO ADDRESS ON FILE Chest pain, unspecified (Primary Dx); Esophageal reflux; Dizziness and giddiness Social History Tobacco Use Types Packs/Day Years Used Date Smoking Tobacco: Never Assessed Comments Unknown Sex and Gender Information Value Date Recorded Sex Assigned at Not on file 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
--- OUTSIDE RECORDS SUMMARY | 2025-04-12 09:41 | XMS_ITS | Encounter Summary ---
Author Organization [facility] Address [address] [place] [address] Care Team Providers Care Network Management Specialist Name Role Phone Anuradha Valencia MD Primary Care Provider [phone] Encounter Details Date Type Department Care Team (Latest Contact Info) Description 12/14/2004 Outpatient Historical [facility] [place] 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
--- OUTSIDE RECORDS SUMMARY | 2025-04-12 09:41 | XMS_ITS | Encounter Summary ---
Author Organization [facility] Address [address] [place] [address] Care Team Providers Care Laboratory Tech Name Role Phone Anuradha Valencia MD Primary Care Provider [phone] Encounter Details Date Type Department Care Team (Latest Contact Info) Description 05/07/2006 Outpatient Historical [facility] 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
--- OUTSIDE RECORDS SUMMARY | 2025-04-12 09:41 | XMS_ITS | Encounter Summary ---
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
--- OUTSIDE RECORDS SUMMARY | 2025-04-12 09:41 | XMS_ITS | Encounter Summary ---
Author Organization [facility] Address [address] [place] [address] Care Team Providers Care Gauge And Weigh Machine Operator Name Role Phone Anuradha Valencia [...] DIGITAL BREAST TOMOSYNTHESIS BI Alli Arroyo PA [facility] [address] [address] Phone: tel: fax: Referral ID Status Reason Start Date Expiration Date V isits Requested Visits Authorized [id number] Closed [facility] TO SCHEDULE ([facility]) 09/24/2019 10/24/2020 1 1 Encounter Details Date Type Department Care Team (Latest Contact Info) Description 12/22/2019 Ancillary Orders [facility] Pre-Registration [place] CALL TO MAKE APPOINTMENT ONLY [address] [place] [address] Alli Arroyo PA NO ADDRESS [...] on file 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 No / Unsure 12/22/2019 11:08 AM CDT documented as of this encounter Plan of Treatment Not on file documented as of this encounter Results * MAMMO SCRN UNI RT 3D KELLY W OR WO CAD (12/22/2019 11:39 AM CDT) Anatomical Region Laterality Modality Breast Right Mammography Narrative 12/22/2019 1:54 PM CDT Right Digital Mammogram with CAD and 3D Tomography Reason for Exam: Screening Comparison: Compared to: 12/18/2018 MAMMO SCRN UNI RT 3D KELLY W OR WO CAD, 12/16/2017 MAMMO SCRN UNI RT 3D KELLY W OR WO CAD, 11/15/2016 MAMMO SCREEN UNI RIGHT W OR WO CAD, 10/19/2015 MAMMO DIGITAL SCREEN UNI RIGHT, and 10/06/2014 MAMMO DIGITAL SCREEN UNI RIGHT Technique: 3D MLO and CC digital tomosynthesis images were acquired and synthesized 2D images (C view) were generated. This digital mammogram was also analyzed by the Computer Aided Detection System CAD). Breast Composition: There are scattered areas of fibroglandular density. There are no suspicious masses, areas of architectural distortions, or microcalcifications to suggest malignancy. Patient is status post left mastectomy.No significant new findings since the prior mammogram(s). Alli HOLCOMB MAMMO ORDERABLES Final Result documented in this encounter Visit Diagnoses Diagnosis Visit for screening mammogram Other screening mammogram Visit for screening mammogram Other screening mammogram documented in this encounter Additional Health Concerns Assessment Noted Time PHQ-9 Depression Total Score: 1 08/23/19 20 9:44 AM CDT documented as of this encounter Care Teams Gauge And Weigh Machine Operator Relationship Specialty Start Date End Date Anuradha Valencia MD [address] [phone] PCP - General Family Practice 05/05/13 documented as of this encounter
--- OUTSIDE RECORDS SUMMARY | 2025-04-12 09:41 | XMS_ITS | Encounter Summary ---
Author Organization [facility] Address [address] [place] [address] Care Team Providers Care Glass Blower Helper Name Role Phone Anuradha Valencia MD Primary Care Provider Encounter Details Date Type Department Care Team (Latest Contact Info) Description 07/27/1999 Outpatient Historical [facility]- [address] [phone] Radhames Pearson DO NO ADDRESS ON FILE Other disorder of menstruation and other abnormal bleeding from female genital tract (Primary Dx); Pain in joint, ankle and foot Social History Tobacco Use Types Packs/Day Years Used Date Smoking Tobacco: Never Assessed Comments Unknown Sex and Gender Information Value Date Recorded Sex Assigned at Not on file 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
--- OUTSIDE RECORDS SUMMARY | 2025-04-12 09:41 | XMS_ITS | Encounter Summary ---
Author Organization [facility] Address [address] [place] [address] Care Team Providers Care Fire Lookout Name Role Phone Anuradha Valencia MD Primary Care Provider Encounter Details Date Type Department Care Team (Latest Contact Info) Description 02/04/2003 Outpatient Historical [facility] Medicine- [address] [phone] Bonnie Bolanos MD NO ADDRESS ON FILE JOINT PAIN-SHLDER (Primary Dx); MALIGN NEOPL BREAST NOS (CMS/HCC) Social History Tobacco Use Types Packs/Day Years Used Date Smoking Tobacco: Never Assessed Comments Unknown Sex and Gender Information Value Date Recorded Sex Assigned at Not on file 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
--- OUTSIDE RECORDS SUMMARY | 2025-04-12 09:41 | XMS_ITS | Encounter Summary ---
Author Organization [facility] Address [address] [place] [address] Care Team Providers Care Upper Cutter Out Name Role Phone Anuradha Valencia MD Primary Care Provider Encounter Details Date Type Department Care Team (Latest Contact Info) Description 10/02/2001 Outpatient Historical [facility] [address] [phone] Radhames Pearson, NO ADDRESS ON FILE Inflam disease of breast (Primary Dx); ENURESIS NOS Social History Tobacco Use Types Packs/Day Years Used Date Smoking Tobacco: Never Assessed Comments Unknown Sex and Gender Information Value Date Recorded Sex Assigned at Not on file 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
--- OUTSIDE RECORDS SUMMARY | 2025-04-12 09:41 | XMS_ITS | Encounter Summary ---
Author Organization [facility] Address [address] [place] [address] Care Team Providers Care Broadcast Operations Technician Name Role Phone Anuradha Valencia MD Primary Care Provider [phone] Encounter Details Date Type Department Care Team (Latest Contact Info) Description 03/12/2000 Outpatient Historical [facility] Medicine- [address] [phone] Rolly Kothari MD [address] [phone] Adjustment disorder with anxiety (Primary Dx); Urticaria, unspecified Social History Tobacco Use Types Packs/Day Years Used Date Smoking Tobacco: Never Assessed Comments Unknown Sex and Gender Information Value Date Recorded Sex Assigned at Not on file Legal Sex Female 4:28 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
--- OUTSIDE RECORDS SUMMARY | 2025-04-12 09:41 | XMS_ITS | Encounter Summary ---
Author Organization [facility] Address [address] [place] [address] Care Team Providers Care Dog Handler Name Role Phone Anuradha Valencia MD Primary Care Provider Encounter Details Date Type Department Care Team (Latest Contact Info) Description 01/21/2003 Outpatient Historical [facility] Medicine- [address] [phone] Rolly Kothari MD [address] [phone] JOINT PAIN-UNSPEC (Primary Dx); Vaccine for influenza Social History Tobacco Use Types Packs/Day Years Used Date Smoking Tobacco: Never Assessed Comments Unknown Sex and Gender Information Value Date Recorded Sex Assigned at Not on file 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
--- OUTSIDE RECORDS SUMMARY | 2025-04-12 09:41 | XMS_ITS | Encounter Summary ---
Author Organization [facility] Address [address] [place] [address] Care Team Providers Care Oil Well Pumper Name Role Phone nAuradha Valencia MD Primary Care Provider Encounter Details Date Type Department Care Team (Latest Contact Info) Description 07/30/2002 Outpatient Historical [facility] Medicine- [address] [phone] Rolly Kothari MD [address] [phone] SWELLING OR MASS OF EYE (Primary Dx); DEPRESSIVE DISORDER NEC Social History Tobacco Use Types Packs/Day Years Used Date Smoking Tobacco: Never Assessed Comments Unknown Sex and Gender Information Value Date Recorded Sex Assigned at Not on file 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
--- OUTSIDE RECORDS SUMMARY | 2025-04-12 09:41 | XMS_ITS | Encounter Summary ---
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
--- OUTSIDE RECORDS SUMMARY | 2025-04-12 09:41 | XMS_ITS | Encounter Summary ---
Author Organization [facility] Address [address] [place] [address] Care Team Providers Care Die Maintenance Technician Name Role Phone Anuradha Valencia MD Primary Care Provider Encounter Details Date Type Department Care Team (Latest Contact Info) Description 01/30/2001 Outpatient Historical [facility] Medicine- [address] [phone] Rolly Kothari MD [address] [phone] Acute upper respiratory infections of unspecified site (Primary Dx); Unspecified essential hypertension; Need for prophylactic hormone replacement therapy (postmenopausal) Social History Tobacco Use Types Packs/Day Years Used Date Smoking Tobacco: Never Assessed Comments Unknown Sex and Gender Information Value Date Recorded Sex Assigned at Not on file 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 Gender Identity Not on file Sexual Orientation Not on file documented as of this encounter Plan of Treatment Not on file documented as of this encounter Visit Diagnoses Diagnosis Acute upper respiratory infections of unspecified site- Primary Unspecified essential hypertension Need for prophylactic hormone replacement therapy (postmenopausal) documented in this encounter Care Teams Die Maintenance Technician Relationship Specialty Start Date End Date Anuradha Valencia MD [address] [facility] [place] [phone] PCP - General Family Practice 05/05/13 documented as of this encounter
--- OUTSIDE RECORDS SUMMARY | 2025-04-12 09:41 | XMS_ITS | Encounter Summary ---
Author Organization [facility] Address [address] [place] [address] Care Team Providers Care Marketing Intelligence Analyst Name Role Phone Anuradha Valencia MD Primary Care Provider Encounter Details Date Type Department Care Team (Latest Contact Info) Description 04/18/2000 Outpatient Historical [address] [phone] Radhames Pearson DO NO ADDRESS ON FILE Acute pharyngitis (Primary Dx); Adjustment disorder with anxiety; Rash and other nonspecific skin eruption Social History Tobacco Use Types Packs/Day Years Used Date Smoking Tobacco: Never Assessed Comments Unknown Sex and Gender Information Value Date Recorded Sex Assigned at Not on file 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
--- OUTSIDE RECORDS SUMMARY | 2025-04-12 09:41 | XMS_ITS | Encounter Summary ---
Author Organization [facility] Address [address] [place] [address] Care Team Providers Care Naval Aircrewman Tactical Helicopter Name Role Phone Anuradha Valencia MD Primary Care Provider [phone] Encounter Details Date Type Department Care Team (Latest Contact Info) Description 04/05/2002 Outpatient Historical [facility] Medicine- [address] [phone] Rolly Kothari MD [address] [phone] VACCINE FOR STREP PNEUMONIAE (Primary Dx) Social History Tobacco Use Types Packs/Day Years Used Date Smoking Tobacco: Never Assessed Comments Unknown Sex and Gender Information Value Date Recorded Sex Assigned at Not on file 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 Gender Identity Not on file Sexual Orientation Not on file documented as of this encounter Plan of Treatment Not on file documented as of this encounter Visit Diagnoses Diagnosis Need for prophylactic vaccination against Streptococcus pneumoniae (pneumococcus)- Primary Need for prophylactic vaccination against streptococcus pneumoniae (pneumococcus) documented in this encounter Care Teams Naval Aircrewman Tactical Helicopter Relationship Specialty Start Date End Date Anuradha Vlaencia MD [address] [facility] 60 [place] [address] PCP - General Family Practice 05/05/13 documented as of this encounter
--- OUTSIDE RECORDS SUMMARY | 2025-04-12 09:41 | XMS_ITS | Encounter Summary ---
Author Organization [facility] Address [address] [place] [address] Care Team Providers Care Network Contract Manager Name Role Phone Anuradha Valencia MD Primary Care Provider [phone]- [phone] Encounter Details Date Type Department Care Team (Latest Contact Info) Description 02/18/2003 Outpatient Historical [address] [phone] Bonnie Bolanos MD NO ADDRESS ON FILE Gynecologic examination (Primary Dx); MALIGN NEOPL BREAST NOS (CMS/HCC); VACCINE FOR STREP PNEUMONIAE; SCREENING MAL NEOP-RECTUM Social History Tobacco Use Types Packs/Day Years Used Date Smoking Tobacco: Never Assessed Comments Unknown Sex and Gender Information Value Date Recorded Sex Assigned at Not on file 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[employer] Gender Identity Not on file Sexual Orientation Not on file documented as of this encounter Plan of Treatment Not on file documented as of this encounter Visit Diagnoses Diagnosis Gynecologic examination- Primary Gynecological examination Malignant neoplasm of breast (female), unspecified site Need for prophylactic vaccination against Streptococcus pneumoniae (pneumococcus) Need for prophylactic vaccination against streptococcus pneumoniae (pneumococcus) Screening for malignant neoplasm of the rectum documented in this encounter Care Teams Network Contract Manager Relationship Specialty Start Date End Date Anuradha Valencia MD [address] [facility] 60 [place] [address] PCP - General Family Practice 05/05/13 documented as of this encounter
--- OUTSIDE RECORDS SUMMARY | 2025-04-12 09:41 | XMS_ITS | Encounter Summary ---
Author Organization [facility] Address [address] [place] [address] Care Team Providers Care Carriage Rider Name Role Phone Anuradha Valencia MD Primary Care Provider Encounter Details Date Type Department Care Team (Latest Contact Info) Description 06/08/1999 Outpatient Historical 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
--- OUTSIDE RECORDS SUMMARY | 2025-04-12 09:41 | XMS_ITS | Encounter Summary ---
Author Organization [facility] Address [address] [place] [address] Care Team Providers Care Planning Division Superintendent Name Role Phone Anuradha Valencia MD Primary Care Provider [phone] Encounter Details Date Type Department Care Team (Latest Contact Info) Description 06/06/2006 Outpatient Historical [facility] 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
--- OUTSIDE RECORDS SUMMARY | 2025-04-12 09:41 | XMS_ITS | Encounter Summary ---
Author Organization [facility] Address [address] [place] [address] Care Team Providers Care Bike Technician Name Role Phone Anuradha Valencia MD Primary Care Provider Encounter Details Date Type Department Care Team (Latest Contact Info) Description 01/07/2005 Outpatient Historical [facility] Operating Room [address] [place] [address] Alli Armstrong MD NO ADDRESS ON FILE CHRONIC CHOLECYSTITIS NEC (Primary Dx) Social History Tobacco Use Types Packs/Day Years Used Date Smoking Tobacco: Never Assessed Comments Unknown Sex and Gender Information Value Date Recorded Sex Assigned at Not on file 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 INR 1.2 INTERFACE SYSTEM Comment: Expected Values for INR: DVT/PE Goal INR 2.5; range 2.0 - 3.0 Valve Replacement Tissue Goal INR 2.5; range 2.0 - 3.0 Mechanical Goal INR 3.0; range 2.5 - 3.5 POST-AK Goal INR 2.5; range 2.0 - 3.0 or Goal 3.0; range 2.5 - 3.5 Atrial Fibrillation Goal INR 2.5; range 2.0 - 3.0 Ischemic Stroke Goal INR 2.5; range 2.0 - 3.0 For additional information see Guidelines for Anticoagulation available from the pharmacy [facility]. PTT 33.4 24.3 - 37.5 Secs INTERFACE SYSTEM Comment:Therapeutic Range: 01/07/2005 5:52 AM CDT Alli Armstrong MD HEMATOLOGY ORDERABLES Final Result Performing Organization Address City/State/[facility] Co de Phone Number INTERFACE SYSTEM Refer to clinic/hospital department documented in this encounter Visit Diagnoses Diagnosis Chronic cholecystitis- Primary documented in this encounter Care Teams Bike Technician Relationship Specialty Start Date End Date Anuradha Valencia MD [address] [address] PCP - General Family Practice 05/05/13 documented as of this encounter
--- OUTSIDE RECORDS SUMMARY | 2025-04-12 09:41 | XMS_ITS | Encounter Summary ---
Author Organization [facility] Address [address] [place] [address] Care Team Providers Care Job Forwarder Name Role Phone Anuradha Valencia MD Primary Care Provider Encounter Details Date Type Department Care Team (Latest Contact Info) Description 12/05/2000 Outpatient Historical [address] [phone] Radhames Pearson DO NO ADDRESS ON FILE Urinary tract infection, site not specified (Primary Dx); Dysfunct eustachian tube Social History Tobacco Use Types Packs/Day Years Used Date Smoking Tobacco: Never Assessed Comments Unknown Sex and Gender Information Value Date Recorded Sex Assigned at Not on file 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
--- OUTSIDE RECORDS SUMMARY | 2025-04-12 09:41 | XMS_ITS | Encounter Summary ---
Author Organization [facility] Address [address] [place] [address] Care Team Providers Care Environmental Sustainability Manager Name Role Phone Anuradha Valencia MD Primary Care Provider Encounter Details Date Type Department Care Team (Latest Contact Info) Description 12/06/2004 Outpatient Historical [facility] [address] [facility] [facility] [address] [place] [address] Pelon Nickerson MD NO ADDRESS ON FILE MALIG NEOPLASM BREAST UP-OUTER (CMS/HCC) (Primary Dx); Vena cava thrombosis; ABN SERUM ENZY LEVEL NEC Social History Tobacco Use Types Packs/Day Years Used Date Smoking Tobacco: Never Assessed Comments Unknown Sex and Gender Information Value Date Recorded Sex Assigned at Not on file 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 Gender Identity Not on file Sexual Orientation Not on file documented as of this encounter Plan of Treatment Not on file documented as of this encounter Visit Diagnoses Diagnosis 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
--- OUTSIDE RECORDS SUMMARY | 2025-04-12 09:41 | XMS_ITS | Encounter Summary ---
Author Organization [facility] Address [address] [place] [address] Care Team Providers Care Director Of Golf Name Role Phone Anuradha Valencia MD Primary Care Provider Encounter Details Date Type Department Care Team (Latest Contact Info) Description 11/10/2002 Outpatient Historical [facility] IndioGus MD [address] [phone] Vena cava thrombosis (Primary Dx) Social History Tobacco Use Types Packs/Day Years Used Date Smoking Tobacco: Never Assessed Comments Unknown Sex and Gender Information Value Date Recorded Sex Assigned at Not on file 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
--- OUTSIDE RECORDS SUMMARY | 2025-04-12 09:41 | XMS_ITS | Encounter Summary ---
Author Organization [facility] Address [address] [place] [address] Care Team Providers Care Lithographic Plate Maker Apprentice Name Role Phone Anuradha Valencia MD Primary Care Provider [phone] Encounter Details Date Type Department Care Team (Latest Contact Info) Description 08/06/2002 Outpatient Historical [address] [phone] Bonnie Bolanos MD NO ADDRESS ON FILE STOMATITIS (Primary Dx) Social History Tobacco Use Types Packs/Day Years Used Date Smoking Tobacco: Never Assessed Comments Unknown Sex and Gender Information Value Date Recorded Sex Assigned at Not on file 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
--- OUTSIDE RECORDS SUMMARY | 2025-04-12 09:41 | XMS_ITS | Encounter Summary ---
Author Organization [facility] Address [address] [place] [address] Care Team Providers Care Home Appliances Mechanic Name Role Phone Anuradha Valencia MD Primary Care Provider Encounter Details Date Type Department Care Team (Latest Contact Info) Description 04/09/2006 Outpatient Historical [facility] Family Medicine- [address] [place] [address] Randall Sofia NP NO ADDRESS ON FILE Pain in Joint, Shoulder Region (Primary Dx) Social History Tobacco Use Types Packs/Day Years Used Date Smoking Tobacco: Never Assessed Comments Unknown Sex and Gender Information Value Date Recorded Sex Assigned at Not on file 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
--- OUTSIDE RECORDS SUMMARY | 2025-04-12 09:41 | XMS_ITS | Encounter Summary ---
Author Organization [facility] Address [address] [place] [address] Care Team Providers Care Die Set Up Worker Name Role Phone Anuradha Valencia MD Primary Care Provider Encounter Details Date Type Department Care Team (Latest Contact Info) Description 12/31/2002 Outpatient Historical [facility] Medicine- [address] [phone] Rolly Kothari MD [address] [phone] ACUTE TONSILLITIS (Primary Dx) Social History Tobacco Use Types Packs/Day Years Used Date Smoking Tobacco: Never Assessed Comments Unknown Sex and Gender Information Value Date Recorded Sex Assigned at Not on file 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
--- OUTSIDE RECORDS SUMMARY | 2025-04-12 09:41 | XMS_ITS | Encounter Summary ---
Author Organization [facility] Address [address] [place] [address] Care Team Providers Care Sole Layer Hand Name Role Phone Anuradha Valencia MD Primary Care Provider [phone]- [phone] Encounter Details Date Type Department Care Team (Latest Contact Info) Description 12/28/2004 Outpatient Historical [facility] Gen Spec Surg [place] 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
--- OUTSIDE RECORDS SUMMARY | 2025-04-12 09:41 | XMS_ITS | Encounter Summary ---
Author Organization [facility] Address [address] [place] [address] Care Team Providers Care Mold Filler Name Role Phone Anuradha Valencia MD Primary Care Provider Encounter Details Date Type Department Care Team (Latest Contact Info) Description 07/12/2005 Outpatient Historical [facility] [address] [facility] [address] [place] [address] Thong Campoverde MD NO ADDRESS ON FILE Other Sign and Symptom in Breast (Primary Dx) Social History Tobacco Use Types Packs/Day Years Used Date Smoking Tobacco: Never Assessed Comments Unknown Sex and Gender Information Value Date Recorded Sex Assigned at Not on file 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
--- OUTSIDE RECORDS SUMMARY | 2025-04-12 09:41 | XMS_ITS | Encounter Summary ---
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
--- OUTSIDE RECORDS SUMMARY | 2025-04-12 09:41 | XMS_ITS | Encounter Summary ---
Author Organization [facility] Address [address] [place] [address] Care Team Providers Care Supervisor Customer Complaint Service Name Role Phone Anuradha Valencia MD Primary Care Provider [phone]- [phone] Encounter Details Date Type Department Care Team (Latest Contact Info) Description 01/18/2005 Outpatient Historical [facility] Gen Spec Surg [place] 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
--- OUTSIDE RECORDS SUMMARY | 2025-04-12 09:41 | XMS_ITS | Encounter Summary ---
Author Organization [facility] Address [address] [facility] [place] [address] Care Team Providers Care Pressure Control Supervisor Name Role Phone Anuradha Valencia MD Primary Care Provider [phone] Encounter Details Date Type Department Care Team (Late [facility] Info) Description 10/26/2002 Outpatient Historical [facility] FY06 Nick Kimbrough MD [address] [address] Social History Tobacco Use Types Packs/Day Years Used Date Smoking Tobacco: Never Assessed Comments Unknown Sex and Gender Information Value Date Recorded Sex Assigned at Not on file 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
--- OUTSIDE RECORDS SUMMARY | 2025-04-12 09:41 | XMS_ITS | Encounter Summary ---
Author Organization [facility] Address [address] [place] [address] Care Team Providers Care Director Employee Safety And Health Name Role Phone Anuradha Valencia MD Primary Care Provider Encounter Details Date Type Department Care Team (Latest Contact Info) Description 04/27/1999 Outpatient Historical [address] [phone] Radhames Pearson DO NO ADDRESS ON FILE Injury, other and unspecified, knee, leg, ankle, and foot (Primary Dx) Social History Tobacco Use Types Packs/Day Years Used Date Smoking Tobacco: Never Assessed Comments Unknown Sex and Gender Information Value Date Recorded Sex Assigned at Not on file 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
--- OUTSIDE RECORDS SUMMARY | 2025-04-12 09:41 | XMS_ITS | Encounter Summary ---
Author Organization [facility] Address [address] [place] [address] Care Team Providers Care Track Greaser Name Role Phone Anuradha Valencia MD Primary Care Provider Encounter Details Date Type Department Care Team (Latest Contact Info) Description 06/09/2002 Outpatient Historical [facility] IndioGus MD [address] [address] MALIGN NEOPL BREAST NOS (CMS/HCC) (Primary Dx) Social History Tobacco Use Types Packs/Day Years Used Date Smoking Tobacco: Never Assessed Comments Unknown Sex and Gender Information Value Date Recorded Sex Assigned at Not on file 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
--- OUTSIDE RECORDS SUMMARY | 2025-04-12 09:41 | XMS_ITS | Encounter Summary ---
Author Organization [facility] Address [address] [place] [address] Care Team Providers Care Yard Foreman Name Role Phone Anuradha Valencia MD Primary Care Provider Encounter Details Date Type Department Care Team (Latest Contact Info) Description 04/02/2002 Outpatient Historical [facility] Gen Spec Surg [place] 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
--- OUTSIDE RECORDS SUMMARY | 2025-04-12 09:41 | XMS_ITS | Encounter Summary ---
Author Organization [facility] Address [address] [place] [address] Care Team Providers Care Dry Cleaning Supervisor Name Role Phone Anuradha Valencia MD Primary Care Provider Encounter Details Date Type Department Care Team (Late st Contact Info) Description 12/06/2004 Outpatient Historical [facility] [address] [facility] [address] [place] [address] Mary Rolle MD NO ADDRESS ON FILE SYMPTOMS IN BREAST NEC (Primary Dx) Social History Tobacco Use Types Packs/Day Years Used Date Smoking Tobacco: Never Assessed Comments Unknown Sex and Gender Information Value Date Recorded Sex Assigned at Not on file 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
--- OUTSIDE RECORDS SUMMARY | 2025-04-12 09:41 | XMS_ITS | Encounter Summary ---
Author Organization [facility] Address [address] [place] [address] Care Team Providers Care Creative Services Specialist Name Role Phone Anuradha Valencia MD Primary Care Provider [phone] Encounter Details Date Type Department Care Team (Latest Contact Info) Description 07/26/2005 Outpatient Historical [facility] Gen Spec Surg [place] 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
--- OUTSIDE RECORDS SUMMARY | 2025-04-12 09:41 | XMS_ITS | Encounter Summary ---
Author Organization [facility] Address [address] [place] [address] Care Team Providers Care Brick Veneer Maker Name Role Phone Anuradha Valencia MD Primary Care Provider [phone]- [phone] Encounter Details Date Type Department Care Team (Latest Contact Info) Description 12/28/2004 Outpatient Historical [facility] [address] [place] [address] Alli Armstrong MD NO ADDRESS ON FILE PREOP CARDIOVASC EXAM (Primary Dx) Social History Tobacco Use Types Packs/Day Years Used Date Smoking Tobacco: Never Assessed Comments Unknown Sex and Gender Information Value Date Recorded Sex Assigned at Not on file 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
--- OUTSIDE RECORDS SUMMARY | 2025-04-12 09:41 | XMS_ITS | Encounter Summary ---
Author Organization [employer] [facility] Address [address] [place] [address] Care Team Providers Care Dental Chair Assembler Name Role Phone Anuradha Valencia MD Primary Care Provider [phone] Encounter Details Date Type Department Care Team (Latest Contact Info) Description 01/24/2006 Outpatient Historical [facility] Cancer and Hematology 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
--- OUTSIDE RECORDS SUMMARY | 2025-04-12 09:41 | XMS_ITS | Encounter Summary ---
Author Organization [facility] Address [address] [facility] [place] [address] Care Team Providers Care Petroleum Engineering Professor Name Role Phone Anuradha Valencia MD Primary Care Provider [phone]- [phone] Reason for Referral * Outpatient Services (Routine) - Closed Specialty Diagnoses / Procedures Referred By Mihir t Referred To Contact Diagnoses Other screening mammogram Procedures MAMMO DIGITAL SCREEN UNI RIGHT Pelon Nickerson MD [facility] Pre-Registration [place] CALL TO MAKE APPOINTMENT ONLY [address] [place] [place] [address] Phone: tel: fax: Referral ID Status Reason Start Date Expiration Date Visits Re quested Visits Authorized [id number] Closed 09/14/2014 10/15/2015 1 1 Encounter Details Date Type Department Care Team (Latest Contact Info) Description 09/14/2014 Ancillary Orders [facility] Pre-Registration [place] CALL TO MAKE APPOINTMENT ONLY [address] [place] [address] Pelon Nickerson MD NO ADDRESS ON [...] on file Legal Sex Female 4:28 AM SHIP WASHER Gender Identity Not on file Sexual Orientation Not on file Occupation Industry Job Start Date Job End Date Not on file Not on file Not on file Not on file documented as of this encounter Plan of Treatment Not on file documented as of this encounter Results * MAMMO DIGITAL SCREEN UNI RIGHT (10/06/2014 12:00 PM CDT) Anatomical Region Laterality Modality Breast Right Mammography Narrative 10/08/2014 4:43 PM CDT Right Mammogram Prior left mastectomy 2001. Reason for Exam: Screening Comparison: Compared to: 08/14/2012 MAMMO DIGITAL SCREEN UNI RIGHT Findings: [...] mammogram documented in this encounter Care Teams Petroleum Engineering Professor Relationship Specialty Start Date End Date Anuradha Valencia MD [address] [phone] PCP - General Family Practice 05/05/13 documented as of this encounter
--- OUTSIDE RECORDS SUMMARY | 2025-04-12 09:41 | XMS_ITS | Encounter Summary ---
Author Organization [facility] Address [address] [place] [address] Care Team Providers Care As400 Programmer Analyst Name Role Phone Anuradha Valencia MD Primary Care Provider [phone]- [phone] Encounter Details Date Type Department Care Team (Latest Contact Info) Description 02/10/2002 Outpatient Historical [facility] Gen Spec Surg [place] 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
--- OUTSIDE RECORDS SUMMARY | 2025-04-12 09:41 | XMS_ITS | Encounter Summary ---
Author Organization [employer] [facility] Address [address] [place] [address] Care Team Providers Care Medical Office Specialist Name Role Phone Anuradha Valencia MD Primary Care Provider Encounter Details Date Type Department Care Team (Late st Contact Info) Description 08/12/2008 Ancillary Orders [facility] [address] [facility] [address] [place] [address] Pelon Nickerson MD NO ADDRESS ON FILE Screening Mammogram; Personal History of Malignant Neoplasm of Breast Social History Tobacco Use Types Packs/Day Years Used Date Smoking Tobacco: Former Cigarettes 2.5 0 10/14/1961 - 04/14/1964 Alcohol Use Standard Drinks/Week Comments No 0 (1 standard drink = 0.6 oz pur e alcohol) Comments No Sex and Gender Information Value Date Recorded Sex Assigned at Not on file 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
--- OUTSIDE RECORDS SUMMARY | 2025-04-12 09:41 | XMS_ITS | Encounter Summary ---
Author Organization [facility] Address [address] [place] [address] Care Team Providers Care Silk Conditioner Name Role Phone Anuradha Valencia MD Primary Care Provider [phone]- [phone] Encounter Details Date Type Department Care Team (Latest Contact Info) Description 02/07/2006 Outpatient Historical [address] [phone] Alli Arroyo PA NO ADDRESS ON FILE Unspecified Sinusitis (Chronic) (Primary Dx) Social History Tobacco Use Types Packs/Day Years Used Date Smoking Tobacco: Never Assessed Comments Unknown Sex and Gender Information Value Date Recorded Sex Assigned at Not on file 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
--- OUTSIDE RECORDS SUMMARY | 2025-04-12 09:41 | XMS_ITS | Encounter Summary ---
Author Organization [facility] Address [address] [place] [address] Care Team Providers Care Industrial Cafeteria Manager Name Role Phone Anuradha Valencia MD Primary Care Provider [phone] Reason for Referral * Outpatient Services (Routine) - Closed Specialty Diagnoses / Procedures Referred By Contac t Referred To Contact Diagnoses Other screening mammogram Procedures MAMMO DIGITAL SCREEN UNI RIGHT Pelon Nickerson MD NO ADDRESS ON FILE [facility] Pre-Registration [place] CALL TO MAKE APPOINTMENT ONLY [address] [place] [address] Phone: tel: fax: Referral ID Status Reason Start Date Expiration Date V isits Requested Visits Authorized [id number] Closed F [facility] TO SCHEDULE ([facility]) 07/16/2013 08/16/2014 1 1 Encounter Details Date Type Department Care Team (Latest Contact Info) Description 07/16/2013 Ancillary Orders [facility] [employer] Pre-Registration [place] CALL TO MAKE APPOINTMENT ONLY [address] [place] [address] Pelon Nickerson MD NO ADDRESS [...] on file 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 Reason for Exam: Screening Comparison: Compared to: 07/04/2011 MAMMO DIGITAL SCREEN UNI RIGHT, 04/27/2010 MAMMO DIGITAL SCREEN UNI RIGHT Findings: Right CC and MLO views were obtained. This examination was reviewed with the aid of a computer-aided detection system(CAD). The breast tissue density is average. No significant new findings since the prior mammogram(s). Procedure Note Hossein Abdul MD - 10/06/2013 Right Mammogram Prior left mastectomy 2001. Reason for Exam: Screening Comparison: Compared to: 07/04/2011 MAMMO DIGITAL SCREEN UNI RIGHT,04/27/2010 MAMMO DIGITAL SCREEN UNI RIGHT Findings: Right CC and MLO views were obtained. This examination was reviewed with the aid of a computer-aided detectionsystem(CAD). The breast tissue density is average. No significant new findings since the prior mammogram(s). Pelon Nickerson MD MAMMO ORDERABLES Final Result documented in this encounter Visit Diagnoses Diagnosis Other screening mammogram- Primary Other screening mammogram documented in this encounter Care Teams Industrial Cafeteria Manager Relationship Specialty Start Date End Date Anuradha Valencia MD [address] [facility] [address] [place] [address] PCP - General Family Practice 05/05/13 documented as of this encounter
--- OUTSIDE RECORDS SUMMARY | 2025-04-12 09:41 | XMS_ITS | Encounter Summary ---
Author Organization [facility] Address [address] [place] [address] Care Team Providers Care Label Tacker Name Role Phone Anuradha Valencia MD Primary Care Provider Encounter Details Date Type Department Care Team (Latest Contact Info) Description 09/22/1998 Outpatient Historical [address] [phone] Radhames Pearson DO NO ADDRESS ON FILE Nonsuppurative otitis media, not specified as acute or chronic (Primary Dx) Social History Tobacco Use Types Packs/Day Years Used Date Smoking Tobacco: Never Assessed Comments Unknown Sex and Gender Information Value Date Recorded Sex Assigned at Not on file 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
--- OUTSIDE RECORDS SUMMARY | 2025-04-12 09:41 | XMS_ITS | Encounter Summary ---
Author Organization [facility] Address [address] [place] [address] Care Team Providers Care Activities Counselor Name Role Phone Anuradha Valencia MD Primary Care Provider Encounter Details Date Type Department Care Team (Latest Contact Info) Description 10/22/2002 Outpatient Historical [facility] Gen Spec [place]urg [place] 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
--- OUTSIDE RECORDS SUMMARY | 2025-04-12 09:41 | XMS_ITS | Encounter Summary ---
Author Organization [employer] [facility] Address [address] [place] [address] Care Team Providers Care Director Enterprise Systems Name Role Phone Anuradha Valencia MD Primary Care Provider Encounter Details Date Type Department Care Team (Latest Contact Info) Description 07/19/2005 Outpatient Historical [facility] 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
--- OUTSIDE RECORDS SUMMARY | 2025-04-12 09:41 | XMS_ITS | Encounter Summary ---
Author Organization [facility] Address [address] [place] [address] Care Team Providers Care Earth Observations Chief Scientist Name Role Phone Anuradha Valencia MD Primary Care Provider Encounter Details Date Type Department Care Team (Latest Contact Info) Description 02/15/2000 Outpatient Historical [address] [phone] Radhames Pearson DO NO ADDRESS ON FILE Open wound of face, unspecified site, without mention of complication (Primary Dx); Dysuria Social History Tobacco Use Types Packs/Day Years Used Date Smoking Tobacco: Never Assessed Comments Unknown Sex and Gender Information Value Date Recorded Sex Assigned at Not on file Legal Sex Female 4:[address] Gender Identity Not on file Sexual Orientation Not on file documented as of this encounter Plan of Treatment Not on file documented as of this encounter Visit Diagnoses Diagnosis Open wound of face, unspecified site, without mention of complication- Primary Dysuria documented in this encounter Care Teams Earth Observations Chief Scientist Relationship Specialty Start Date End Date Anuradha Valencia MD [address] [facility] 60 [place] [address] PCP - General Family Practice 05/05/13 documented as of this encounter
--- OUTSIDE RECORDS SUMMARY | 2025-04-12 09:41 | XMS_ITS | Encounter Summary ---
Author Organization [facility] Address [address] [place] [address] Care Team Providers Care Registered Midwife Name Role Phone Anuradha Valencia MD Primary Care Provider Encounter Details Date Type Department Care Team (Latest Contact Info) Description 04/19/2002 Outpatient Historical [facility] Gen Spec Surg [place] 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
--- OUTSIDE RECORDS SUMMARY | 2025-04-12 09:41 | XMS_ITS | Encounter Summary ---
Author Organization [facility] Address [address] [place] [address] Care Team Providers Care Dobby Looms Pegger Name Role Phone Anuradha Valencia MD Primary Care Provider Encounter Details Date Type Department Care Team (Latest Contact Info) Description 02/05/2000 Outpatient Historical [facility] Medicine [address] [phone] Radhames Pearson DO NO ADDRESS ON FILE Reflux esophagitis (Primary Dx); Dizziness and giddiness Social History Tobacco Use Types Packs/Day Years Used Date Smoking Tobacco: Never Assessed Comments Unknown Sex and Gender Information Value Date Recorded Sex Assigned at Not on file 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
--- OUTSIDE RECORDS SUMMARY | 2025-04-12 09:41 | XMS_ITS | Encounter Summary ---
Author Organization [facility] Address [address] [place] [address] Care Team Providers Care Pipe Finishing Supervisor Name Role Phone Anuradha Valencia MD Primary Care Provider Encounter Details Date Type Department Care Team (Latest Contact Info) Description 03/05/2000 Outpatient Historical [facility]- [address] [phone] Rolly Kothari MD [address] [phone] Acute upper respiratory infections of unspecified site (Primary Dx); Dysfunct eustachian tube Social History Tobacco Use Types Packs/Day Years Used Date Smoking Tobacco: Never Assessed Comments Unknown Sex and Gender Information Value Date Recorded Sex Assigned at Not on file Legal Sex Female 4:28 AM DATABASE ARCHITECT Gender Identity Not on file Sexual Orientation Not on file documented as of this encounter Plan of Treatment Not on file documented as of this encounter Visit Diagnoses Diagnosis Acute upper respiratory infections of unspecified site- Primary Dysfunct eustachian tube Dysfunction of Eustachian tube documented in this encounter Care Teams Pipe Finishing Supervisor Relationship Specialty Start Date End Date Anuradha Valencia MD [address] [facility] 60 [place] [address] PCP - General Family Practice 05/05/13 documented as of this encounter
--- OUTSIDE RECORDS SUMMARY | 2025-04-12 09:41 | XMS_ITS | Encounter Summary ---
Author Organization [facility] Address [address] [place] [address] Care Team Providers Care Ediscovery Project Manager Name Role Phone Anuradha Valencia MD Primary Care Provider Encounter Details Date Type Department Care Team (Latest Contact Info) Description 08/22/2000 Outpatient Historical [facility] Medicine- [address] [phone] Rolly Kothari MD [address] [phone] Adjustment disorder with anxiety (Primary Dx); Urticaria, unspecified Social History Tobacco Use Types Packs/Day Years Used Date Smoking Tobacco: Never Assessed Comments Unknown Sex and Gender Information Value Date Recorded Sex Assigned at Not on file 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
--- OUTSIDE RECORDS SUMMARY | 2025-04-12 09:41 | XMS_ITS | Encounter Summary ---
Author Organization [facility] Address [address] [place] [address] Care Team Providers Care Vp Biology Name Role Phone Anuradha Valencia MD Primary Care Provider [phone] Encounter Details Date Type Department Care Team (Latest Contact Info) Description 01/08/2002 Outpatient Historical [address] [phone] Bonnie Bolanos MD NO ADDRESS ON FILE ACUTE BRONCHITIS (Primary Dx); ENURESIS NOS Social History Tobacco Use Types Packs/Day Years Used Date Smoking Tobacco: Never Assessed Comments Unknown Sex and Gender Information Value Date Recorded Sex Assigned at Not on file 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
--- OUTSIDE RECORDS SUMMARY | 2025-04-12 09:41 | XMS_ITS | Encounter Summary ---
Author Organization [facility] Address [address] [place] [address] Care Team Providers Care Fans Clerk Name Role Phone Anuradha Valencia MD Primary Care Provider Encounter Details Date Type Department Care Team (Latest Contact Info) Description 07/05/2002 Outpatient Historical [facility] Medicine- [address] [phone] Rolly Kothari MD [address] [phone] ACUTE BRONCHITIS (Primary Dx) Social History Tobacco Use Types Packs/Day Years Used Date Smoking Tobacco: Never Assessed Comments Unknown Sex and Gender Information Value Date Recorded Sex Assigned at Not on file Legal Sex Female 4:28 AM QUARTZ MOUNTER Gender Identity Not on file Sexual Orientation Not on file documented as of this encounter Plan of Treatment Not on file documented as of this encounter Visit Diagnoses Diagnosis Acute bronchitis- Primary documented in this encounter Care Teams Fans Clerk Relationship Specialty Start Date End Date Anuradha Valencia MD [address] [facility] 60 [place] [address] PCP - General Family Practice 05/05/13 documented as of this encounter
--- OUTSIDE RECORDS SUMMARY | 2025-04-12 09:41 | XMS_ITS | Encounter Summary ---
Author Organization [facility] Address [address] [place] [address] Care Team Providers Care Camera Tuning Engineer Name Role Phone Anuradha Valencia MD Primary Care Provider [phone] Encounter Details Date Type Department Care Team (Latest Contact Info) Description 12/14/2004 Outpatient Historical [facility] [address] [place] [address] Pelon Nickerson MD NO ADDRESS ON FILE MALIG NEOPLASM BREAST UP-OUTER (CMS/HCC) (Primary Dx) Social History Tobacco Use Types Packs/Day Years Used Date Smoking Tobacco: Never Assessed Comments Unknown Sex and Gender Information Value Date Recorded Sex Assigned at Not on file 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
--- OUTSIDE RECORDS SUMMARY | 2025-04-12 09:41 | XMS_ITS | Encounter Summary ---
Author Organization [facility] Address [address] [place] [address] Care Team Providers Care Tape Keller Operator Name Role Phone Anuradha Valencia MD Primary Care Provider Encounter Details Date Type Department Care Team (Latest Contact Info) Description 07/12/2005 [facility]patient [facility] Alli Armstrong MD NO ADDRESS ON FILE Lump or Mass in Breast (Primary Dx) Social History Tobacco Use Types Packs/Day Years Used Date Smoking Tobacco: Never Assessed Comments Unknown Sex and Gender Information Value Date Recorded Sex Assigned at Not on file 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
--- OUTSIDE RECORDS SUMMARY | 2025-04-12 09:41 | XMS_ITS | Encounter Summary ---
Author Organization [facility] Address [address] [place] [address] Care Team Providers Care Machine Scallop Cutter Name Role Phone Anuradha Valencia MD Primary Care Provider Encounter Details Date Type Department Care Team (Latest Contact Info) Description 02/23/1999 Outpatient Historical [address] [phone] Radhames Pearson, NO ADDRESS ON FILE Other bursitis disorders (Primary Dx); Contact dermatitis and other eczema, due to unspecified cause Social History Tobacco Use Types Packs/Day Years Used Date Smoking Tobacco: Never Assessed Comments Unknown Sex and Gender Information Value Date Recorded Sex Assigned at Not on file 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
--- OUTSIDE RECORDS SUMMARY | 2025-04-12 09:41 | XMS_ITS | Encounter Summary ---
Author Organization [facility] Address 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
--- OUTSIDE RECORDS SUMMARY | 2025-04-12 09:41 | XMS_ITS | Encounter Summary ---
Author Organization [facility] Address [address] [place] [address] Care Team Providers Care Steel Hanger Name Role Phone Anuradha Valencia MD Primary Care Provider [phone] Encounter Details Date Type Department Care Team (Latest Contact Info) Description 03/02/2007 Outpatient Historical [address] [phone] Alli Arroyo, [place] NO ADDRESS ON FILE Unspecified Closed Fracture of Carpal Bone (Primary Dx) Social History Tobacco Use Types Packs/Day Years Used Date Smoking Tobacco: Never Assessed Comments Unknown Sex and Gender Information Value Date Recorded Sex Assigned at Not on file Legal Sex Female 4:28 AM DISINTEGRATOR Gender Identity Not on file Sexual Orientation Not on file documented as of this encounter Plan of Treatment Not on file documented as of this encounter Visit Diagnoses Diagnosis Unspecified closed fracture of carpal bone- Primary documented in this encounter Care Teams Steel Hanger Relationship Specialty Start Date End Date Anuradha Valencia MD [address] [address] PCP - General Family Practice 05/05/13 documented as of this encounter
--- OUTSIDE RECORDS SUMMARY | 2025-04-12 09:42 | XMS_ITS | Encounter Summary ---
Author Organization [facility] Address [address] [place] [address] Care Team Providers Care Silk Spotter Name Role Phone Anuradha Valencia MD Primary Care Provider [phone] Encounter Details Date Type Department Care Team (Latest Contact Info) Description 08/12/2003 Outpatient Historical [address] [phone] Alli Arroyo PA NO ADDRESS ON FILE ADV EFFECT MED/BIOL SUB NOS (Primary Dx); Pain in limb; HYPOPOTASSEMIA Social History Tobacco Use Types Packs/Day Years Used Date Smoking Tobacco: Never Assessed Comments Unknown Sex and Gender Information Value Date Recorded Sex Assigned at Not on file Legal Sex Female 4:28 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
--- OUTSIDE RECORDS SUMMARY | 2025-04-12 09:42 | XMS_ITS | Encounter Summary ---
Author Organization [facility] Address [address] [place] [address] Care Team Providers Care Patcher Helper Name Role Phone Anuradha Valencia MD Primary Care Provider Encounter Details Date Type Department Care Team (Latest Contact Info) Description 04/11/2003 Outpatient [facility] [address] 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
--- OUTSIDE RECORDS SUMMARY | 2025-04-12 09:42 | XMS_ITS | Encounter Summary ---
Author Organization [facility] Address [address] [place] [address] Care Team Providers Care Ripsaw Operator Name Role Phone Anuradha Valencia MD Primary Care Provider [phone]- [phone] Encounter Details Date Type Department Care Team (Latest Contact Info) Description 02/18/2002 Outpatient Historical [facility] [address] [place] [address] Alli Armstrong MD NO ADDRESS ON FILE MALIGN NEOPL BREAST NOS (CMS/HCC) (Primary Dx) Social History Tobacco Use Types Packs/Day Years Used Date Smoking Tobacco: Never Assessed Comments Unknown Sex and Gender Information Value Date Recorded Sex Assigned at Not on file Legal Sex Female 4:28 AM PROTOTYPE 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
--- OUTSIDE RECORDS SUMMARY | 2025-04-12 09:42 | XMS_ITS | Clinical Summary ---
Author Organization [facility] Address [address] [facility] [place] [address] Care Team Providers Care Business Banking Sales Assistant Name Role Phone Rolando Ramsey MD Primary Care Provider [phone] Allergies Active Allergy Reactions Criticality Noted Date Comments Fexofenadine-Pseudoeph edrine Other (See Comments) 07/18/2008 Puts me into Shock Lisinopril Nausea and Vomiting Low 12/06/2014 Loratadine Other (See Comments) 07/18/2008 Puts me into Shock Medications dorzolamide-david loL (COSOPT) 22.3-6.8 mg/mL solution instill 1 drop into each eye twice daily 06/23/19 24 Active OTHERIndications :Lymphedema Left lymphedema compression sleeve for arm 1 Each 2 07/16/19 24 Active latanoprost (XALATAN) 0.005 % solution INSTILL 1 DROP INTO EACH EYE ONCE DAILY EVERY NIGHT 06/23/19 24 Active prednisoLONE acetate (PRED FORTE) 1 % suspension INSTILL 1 DROP INTO LEFT EYE EVERY 2 HOURS WHILE AWAKE FOR 2 DAYS, AND THEN 1 DROP INTO THE LEFT EYE FOUR TIMES DAILY 06/23/19 24 Active amLODIPine (NORVASC) 5 mg tabletIndication s:Essential hypertension Take 1 Tablet (5 mg) by mouth daily. 90 Tablet 3 11/03/19 25 Active atenoloL (TENORMIN) 100 mg tabletIndication s:Essential hypertension Take 1 tablet by mouth once daily 90 Tablet 3 11/03/19 25 Active furosemide (Lasix) 40 mg tabletIndication s:Lower extremity edema,Cellulitis of lower extremity, unspecified laterality Take 1 Tablet (40 mg) by mouth 1 time daily as needed for Other (See Comment) (edema). 30 Tablet 5 11/03/19 25 Active oxyBUTYnin (DITROPAN) 5 mg tabletIndication s:Urge incontinence of urine Take 1 Tablet (5 mg) by mouth 3 times daily. 270 Tablet 3 11/03/19 25 Active potassium CHLORIDE (KLOR-CON) 10 mEq Extended Release tabletIndication s:Lower extremity edema Take 1 Tablet (10 mEq) by mouth 1 time daily as needed for Other (See Comment) (when you take a Lasix). 30 Tablet 5 11/03/19 25 Active buPROPion HCL (Wellbutrin XL) 150 mg Extended Release 24 hour tabletIndication s:Morbid obesity with body mass index of 40.0-49.9 (CMS/HCC) Take 1 Tablet (150 mg) by mouth daily in the morning. 90 Tablet 3 11/03/19 25 Active triamcinolone acetonide (KENALOG) 0.1 % Cream Apply to affected area 2 times daily. 80 Gram 1 11/03/19 25 Active oxyCODONE (ROXICODONE) 5 mg tabletIndication s:Status post right knee replacement Take 1 Tablet (5 mg) by mouth every 8 hours as needed for Pain. Max Daily Amount: 15 mg 15 Tablet 04/11/20 25 Active oxyCODONE (ROXICODONE) 5 mg tabletIndication s:Status post right knee replacement Take 1 Tablet (5 mg) by mouth every 6 hours as needed for Pain. Max Daily Amount: 20 mg 20 Tablet 01/07/20 25 025 Discontin ued(Reord er) oxyCODONE (ROXICODONE) 5 mg tabletIndication s:Status post right knee replacement Take 1 Tablet (5 mg) by mouth every 6 hours as needed for Pain. 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 Morbid obesity with body mass index of 40.0-49.9 03/30/2020 Primary hypothyroidism 11/07/2015 Essential hypertension 11/02/2014 Humerus fracture 03/04/2013 Lymphedema syndrome, postmastectomy 10/01/2012 Personal history of malignant neoplasm of breast 10/04/2010 Resolved Problems Problem Noted Date Diagnosed Date Resolved Date Malignant neoplasm of upper- outer quadrant of female breast 07/27/2008 03/10/2019 DVT (deep venous thrombosis) 07/27/2008 03/10/2019 Encounters Date Type Department Care Team Description 04/11/[address] [address] Rolando Ramsey MD Status post right knee replacement 04/05/2025 External Device Data [facility] ABSTRACTION Provider, Abstract 04/01/[address] [address] Rolando Ramsey MD Status post right knee replacement 02/09/2025 External Device Data [facility] ABSTRACTION Provider, Abstract 02/08/2025 External Device Data [facility] ABSTRACTION Provider, Abstract 02/01/2025 External Device Data [facility] ABSTRACTION Provider, Abstract from Last 3 Months Immunizations Immunization Administration Dates Next Due (ADACEL/BOOSTRIX)(10 YR UP) TDAP VACCINE, 0.5ML, IM 10/25/2015 (PNEUMOVAX 23)(50 YRS UP) PN EUMOCOCCAL POLYSACCHARIDE (PPV23) 0.5 ML, IM 02/18/2003,04/05/2002 INFLUENZA VACCINE HIGH DOSE QUADRIVALENT 65 YR UP PF IM 12/27/2022,01/31/2021,03/30/2020 INFLUENZA VACCINE HIGH DOSE TRIVALENT SPLIT VIRUS, (65 YR UP), 0.5ML (PF), IM 01/30/2024 Influenza Seasonal Unspecifi ed Formulation IM 01/20/2007,01/27/2004,01/21/2003 [...] Paternal Grandmother Respiratory Disease Sister Healthy Son Cancer - Other Neg Hx Colon Cancer Neg Hx Melanoma Neg Hx Ovarian Cancer Neg Hx Pancreatic Cancer Neg Hx Uterine or Endometrial Cance r, Not Including Cervical Neg Hx Relation Name Status Comments Brother Alive Daughter Father Maternal Cousin Maternal Grandfather Mother Other Self Alive Paternal Grandfather Paternal Grandmother Sister Alive Son Alive Social History Tobacco Use Types Packs/Day Years Used Date Smoking Tobacco: Former Cigarettes 0 Q uit: 04/14/1964 Smokeless Tobacco: Never Tobacco Cessation:Counseling Given: No Alcohol Use Standard Drinks/Week Comments No 0 [...] 03/30/2020 How often do you attend chur or jewish services? More than 4 times per year 03/30/2020 Do you belong to any clubs o r organizations such as hindu groups, unions, fraternal or athletic groups, or school groups? Yes 03/30/2020 Attends Club or Organization Meetings Not on anahy e 03/30/2020 Marital Status Not on file 03/30/2020 Financial Resource Strain Answer Date R ecorded How hard is it for you to pa y for the very basics like food, housing, medical care, and heating? Not hard at all 10/08/2021 Food Insecurity Answer Date Recorded In the past 12 months, have you worried that your food would run out before you had money to buy more? Never true 10/08/2021 In the past 12 months, did y ou run out of food and didn't have money to buy more? Never true 10/08/2021 Transportation Needs Answer Date Record ed In the past 12 months, has l ack of transportation kept you from medical appointments or from getting medications? No 10/08/2021 Lack of Transportation (Non-Medical) Not on file 10/08/2021 Comments No Sex and Gender Information Value Date Recorded Sex Assigned at Not on file Legal Sex Female 9:43 AM PATIENT REGISTRATION MANAGER Gender Identity Not on file Sexual Orientation Not on file Last Filed Vital Signs Vital Sign Reading Time Taken Comments Blood Pressure 136/70 12/28/2024 8:42 AM CDT Pulse 56 12/28/2024 8:42 AM CDT Temperature 36.2 C (97.2 F) 12/28/2024 8:42 AM CDT Respiratory Rate 18 12/28/2024 8:42 AM CDT Oxygen Saturation 100% 12/28/2024 8:42 AM CDT Inhaled Oxygen Concentration - - Weight 95.3 kg (210 lb) 12/28/2024 8:42 AM CDT Height 157.5 cm (5' 2 ) 12/28/2024 8:42 AM CDT Body Mass Index 38.41 12/28/2024 8:42 AM CDT Plan of Treatment Upcoming Encounters Date Type Department Care Team (Late st Contact Info) Description 11/02/2025 3:00 PM CDT Office Visit [facility] [address] [address] Rolando Ramsey MD [address] [address] Health Maintenance Due Date Last Done Comments ZOSTER VACCINE (1 of 2) 02/10/1990 PNEUMOCOCCAL VACCINE 50+ YEA RS (2 of 2 - PCV) 02/19/2004 02/18/2003, 04/05/2002 OSTEOPOROSIS SCREENING 02/10/2005 RSV VACCINE (60+ or ) (1 - 1-dose 75+ series) 02/10/2015 INFLUENZA VACCINE (#1) 2024 , 12/27/2022, 08/12/2022, Additional history exists COVID-19 Vaccine ( - 2024-2 6 season) 2024 03/01/2021, 06/19/2020, 05/19/2020 DTAP/TDAP/TD VACCINES (2 - T d or Tdap) 10/24/2025 10/25/2015 Medicare Advantage (MS) Preventative Visit/Annual Wellness Visit Completed 11/02/2024, 06/30/2023, 08/12/2022, Additional history exists Medical Devices Implanted Type Area Upholstery Cleaner Device Identifier Shelf Expiration Date Model / Serial / Lot Mesh Ventralight St 4x6in [id number] - Sna Implanted:Qty: 1 on 12/10/2012 by Chema Mendez MD Mesh N/A: Abdomen CR [employer] 09/11/2014 [id number] / NA / [id number] Description:iMPLANT OF MESH to abd. FOR UMBILCAL HERNIA REPAIR.... Insurance BCBS MEDICARE HMO Care Teams Business Banking Sales Assistant Relationship Specialty Start Date End Date Rolando Ramsey MD [address] [facility] [address] [place] [address] PCP - General Family Practice 10/08/21
--- OUTSIDE RECORDS SUMMARY | 2025-04-12 09:42 | XMS_ITS | Encounter Summary ---
Author Organization [facility] Address [address] [place] [address] Care Team Providers Care Teacher Theater Arts Name Role Phone Anuradha Valencia MD Primary Care Provider [phone] Encounter Details Date Type Department Care Team (Late [facility] Info) Description 06/01/2003 Outpatient Historical [facility] FY06 Brandt Milligan MD [address] [place] [phone] Social History Tobacco Use Types Packs/Day Years Used Date Smoking Tobacco: Never Assessed Comments Unknown Sex and Gender Information Value Date Recorded Sex Assigned at Not on file 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
--- OUTSIDE RECORDS SUMMARY | 2025-04-12 09:42 | XMS_ITS | Encounter Summary ---
Author Organization [facility] Address [address] [place] [address] Care Team Providers Care Enterprise Integration Developer Name Role Phone Anuradha Valencia MD Primary Care Provider Encounter Details Date Type Department Care Team (Latest Contact Info) Description 04/06/2003 Outpatient Historical [address] [phone] Radhames Pearson, NO ADDRESS ON FILE EDEMA (Primary Dx); ACUTE URI NOS Social History Tobacco Use Types Packs/Day Years Used Date Smoking Tobacco: Never Assessed Comments Unknown Sex and Gender Information Value Date Recorded Sex Assigned at Not on file 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
--- OUTSIDE RECORDS SUMMARY | 2025-04-12 09:42 | XMS_ITS | Encounter Summary ---
Author Organization [facility] Address [address] [place] [address] Care Team Providers Care Certified Veterinary Technician Name Role Phone Anuradha Valencia MD Primary Care Provider Encounter Details Date Type Department Care Team (Latest Contact Info) Description 10/21/2003 Outpatient Historical [address] [phone] Alli Arroyo PA NO ADDRESS ON FILE Vena cava thrombosis (Primary Dx); MALIGN NEOPL BREAST NOS (CMS/HCC) Social History Tobacco Use Types Packs/Day Years Used Date Smoking Tobacco: Never Assessed Comments Unknown Sex and Gender Information Value Date Recorded Sex Assigned at Not on file 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
--- OUTSIDE RECORDS SUMMARY | 2025-04-12 09:42 | XMS_ITS | Encounter Summary ---
Author Organization [facility] Address [address] [place] [address] Care Team Providers Care Needle Polisher Name Role Phone Anuradha Valencia MD Primary Care Provider [phone] Encounter Details Date Type Department Care Team (Latest Contact Info) Description 03/21/2003 Outpatient Historical [facility]- [address] [phone] Rolly Kothari MD [address] [phone] ACUTE SINUSITIS NOS (Primary Dx) Social History Tobacco Use Types Packs/Day Years Used Date Smoking Tobacco: Never Assessed Comments Unknown Sex and Gender Information Value Date Recorded Sex Assigned at Not on file 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
--- OUTSIDE RECORDS SUMMARY | 2025-04-12 09:42 | XMS_ITS | Encounter Summary ---
Author Organization [facility] Address [address] [place] [address] Care Team Providers Care Material Movers Name Role Phone Anuradha Valencia MD Primary Care Provider [phone]- [phone] Encounter Details Date Type Department Care Team (Latest Contact Info) Description 06/03/2003 Outpatient Historical [address] [phone] Bonnie Bolanos MD NO ADDRESS ON FILE URINARY CALCULUS NOS (Primary Dx); CHRONIC SINUSITIS NOS Social History Tobacco Use Types Packs/Day Years Used Date Smoking Tobacco: Never Assessed Comments Unknown Sex and Gender Information Value Date Recorded Sex Assigned at Not on file 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
--- OUTSIDE RECORDS SUMMARY | 2025-04-12 09:42 | XMS_ITS | Encounter Summary ---
Author Organization [facility] Address [address] [place] [address] Care Team Providers Care Water And Gas Helper Name Role Phone Anuradha Valencia MD Primary Care Provider [phone]- [phone] Encounter Details Date Type Department Care Team (Latest Contact Info) Description 10/27/2003 Outpatient Historical [facility] Cardiac Thoracic Vascular Surg [place] [address] [place] [address] Arsh Avery MD NO ADDRESS ON FILE COMPRESSION OF VEIN (Primary Dx) Social History Tobacco Use Types Packs/Day Years Used Date Smoking Tobacco: Never Assessed Comments Unknown Sex and Gender Information Value Date Recorded Sex Assigned at Not on file 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
--- OUTSIDE RECORDS SUMMARY | 2025-04-12 09:42 | XMS_ITS | Encounter Summary ---
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
--- OUTSIDE RECORDS SUMMARY | 2025-04-12 09:42 | XMS_ITS | Encounter Summary ---
Author Organization [facility] Address [address] [place] [address] Care Team Providers Care Db2 Dba Name Role Phone Anuradha Valencia MD Primary Care Provider Encounter Details Date Type Department Care Team (Latest Contact Info) Description 05/04/2003 Outpatient Historical [facility]- [address] [phone] Rolly Kothari MD [address] [phone] SHOULDER REGION DIS NEC (Primary Dx) Social History Tobacco Use Types Packs/Day Years Used Date Smoking Tobacco: Never Assessed Comments Unknown Sex and Gender Information Value Date Recorded Sex Assigned at Not on file 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
--- OUTSIDE RECORDS SUMMARY | 2025-04-12 09:42 | XMS_ITS | Encounter Summary ---
Author Organization [facility] Address [address] [place] [address] Care Team Providers Care Line Tender Flakeboard Name Role Phone Anuradha Valencia MD Primary Care Provider Encounter Details Date Type Department Care Team (Latest Contact Info) Description 03/22/2002 Outpatient Historical [facility] Gen Spec Surg [place] 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
--- OUTSIDE RECORDS SUMMARY | 2025-04-12 09:42 | XMS_ITS | Encounter Summary ---
Author Organization [facility] Address [address] [place] [address] Care Team Providers Care Childcare Attendant Name Role Phone Rolando Ramsey MD Primary Care Provider [phone] Reason for Visit * Reason Comments Medication Refill Encounter Details Date Type Department Care Team (Late st Contact Info) Description 04/11/2025 Refill [facility] Medicine [address] [address] Rolando Ramsey MD [facility] [address] [address] Status post right knee replacement Social History Tobacco Use Types Packs/Day Years Used Date Smoking Tobacco: Former Cigarettes 0 Q uit: 04/14/1964 Smokeless Tobacco: Never Alcohol Use Standard [...] often do you attend chur ch or faith services? More than 4 times per year 03/30/2020 Do you belong to any clubs o r organizations such as spiritism groups, unions, fraternal or athletic groups, or [...] on file Legal Sex Female 9:43 AM SPRING ASSEMBLER SUPERVISOR Gender Identity Not on file Sexual Orientation Not on file documented as of this encounter Miscellaneous Notes * Telephone Encounter - Marcelle Pack RN - 04/11/2025 9:32 AM SPRING ASSEMBLER SUPERVISOR Medication Refill Request Last Fill Date:04/01/25 #20 Recent and Future Visits: Recent Visits Date Type Provider Dept 12/28/24 Office Visit Brandi Cortez, [facility] 11/02/24 Office Visit Rolando Ramsey MD [facility] 09/14/24 Office Visit Mare Cristina, [facility] 05/17/24 Office Visit Brandi Cortez [facility] 03/29/24 Office Visit Brandi Cortez [facility] 01/30/24 Office Visit Brandi Cortez [facility] Showing recent visits within past 540 days with a meds authorizing provider and meeting all other requirements Future Appointments Date Type Provider Dept 11/02/25 Appointment Rolando Ramsey MD [facility] Showing future appointments within next 365 days with a meds authorizing provider and meeting all other requirements Last Labs: NG ASSEMBLER SUPERVISOR * Telephone Encounter - Lucian Jones - 04/11/2025 9:28 AM CST Copied from [facility] #[id number]. Topic: Medication Request >> Apr 11, 2025 9:26 AM Lucian Duarte wrote: Caller Name: Marie Roper Callback Number: No relevant phone numbers on file. Medication (Ask patient/caregiver to spell if possible): oxyCODONE (ROXICODONE) 5 mg tablet Note: All medication prescriptions can be requested using one [facility] Preferred Pharmacy: [facility] [address] [place] [address] Call Notes: Refill request - Patient out of meds Did caller contact the correct clinic for prescribing provider? Yes Ask caller if the refill is for a controlled medication. Is this for a controlled Medication? Yes Is there an encounter open? No NG ASSEMBLER SUPERVISOR documented in this encounter Plan of Treatment Upcoming Encounters Date Type Department Care Team (Late st Contact Info) Description 11/02/2025 3:00 PM CDT Office Visit [facility] Medicine [place] [address] [phone] Rolando Ramsey MD [address] [phone] documented as of this encounter Visit Diagnoses Diagnosis Status post right knee replacement documented in this encounter Care Teams Childcare Attendant Relationship Specialty Start Date End Date Rolando Ramsey MD [address] [phone] PCP - General Family Practice 10/08/21 documented as of this encounter
--- OUTSIDE RECORDS SUMMARY | 2025-04-12 09:42 | XMS_ITS | Encounter Summary ---
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
--- OUTSIDE RECORDS SUMMARY | 2025-04-12 09:42 | XMS_ITS | Encounter Summary ---
Author Organization [facility] Address [address] [place] [address] Care Team Providers Care Manager Engagement Name Role Phone Rolando Ramsey MD Primary Care Provider [phone] Encounter Details Date Type Department Care Team (Late st Contact Info) Description 04/05/2025 External Device Data [facility] ABSTRACTION Provider, Abstract NO ADDRESS ON FILE Social History Tobacco [...] often do you attend chur ch or orthodox services? More than 4 times per year 03/30/2020 Do you belong to any clubs o r organizations such as hoahaoism groups, unions, fraternal or athletic groups, or [...] on file Legal Sex Female 9:43 AM DYE TUB OPERATOR Gender Identity Not on file Sexual Orientation Not on file documented as of this encounter Plan of Treatment Upcoming Encounters Date Type Department Care Team (Late st Contact Info) Description 11/02/2025 3:00 PM CDT Office Visit [facility] Medicine [place] [address] [phone] Rolando Ramsey MD [address] [phone] documented as of this encounter Visit Diagnoses Not on filedocumented in this encounter Care Teams Manager Engagement Relationship Specialty Start Date End Date Rolando Ramsey MD [address] [phone] PCP - General Family Practice 10/08/21 documented as of this encounter
--- OUTSIDE RECORDS SUMMARY | 2025-04-12 09:42 | XMS_ITS | Encounter Summary ---
Author Organization [facility] Address [address] [place] [address] Care Team Providers Care Filing Writer Name Role Phone Anuradha Valencia MD Primary Care Provider Encounter Details Date Type Department Care Team (Latest Contact Info) Description 04/01/2003 Outpatient Historical [address] [phone] Bonnie Bolanos MD NO ADDRESS ON FILE ACUTE URI NOS (Primary Dx); COUGH Social History Tobacco Use Types Packs/Day Years Used Date Smoking Tobacco: Never Assessed Comments Unknown Sex and Gender Information Value Date Recorded Sex Assigned at Not on file 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
--- OUTSIDE RECORDS SUMMARY | 2025-04-12 09:42 | XMS_ITS | Encounter Summary ---
Author Organization [facility] Address [address] [place] [address] Care Team Providers Care Home Health Registered Nurse Name Role Phone Anuradha Valencia MD Primary Care Provider Encounter Details Date Type Department Care Team (Latest Contact Info) Description 05/13/2003 Outpatient Historical [facility] Gen Spec [place]urg [place] 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
--- OUTSIDE RECORDS SUMMARY | 2025-04-12 09:42 | XMS_ITS | Encounter Summary ---
Author Organization [facility] Address [address] [place] [address] Care Team Providers Care Security Installation Technician Name Role Phone Anuradha Valencia MD Primary Care Provider Encounter Details Date Type Department Care Team (Latest Contact Info) Description 03/03/2002 Outpatient Historical [facility] Gen Spec Surg [place] [address] [place] [address] Alli Armstrong MD NO ADDRESS ON FILE MALIGN NEOPL BREAST NEC (CMS/HCC) (Primary Dx); SURGERY FOLLOWUP, UNSPEC Social History Tobacco Use Types Packs/Day Years Used Date Smoking Tobacco: Never Assessed Comments Unknown Sex and Gender Information Value Date Recorded Sex Assigned at Not on file Legal Sex Female 4:28 AM PATIENT SITTER Gender Identity Not on file Sexual Orientation Not on file documented as of this encounter Plan of Treatment Not on file documented as of this encounter Visit Diagnoses Diagnosis Malignant neoplasm of other specified sites of female breast- Primary Follow-up examination, following unspecified surgery documented in this encounter Care Teams Security Installation Technician Relationship Specialty Start Date End Date Anuradha Valencia MD [address] [facility] [address] [place] [address] PCP - General Family Practice 05/05/13 documented as of this encounter
--- OUTSIDE RECORDS SUMMARY | 2025-04-12 09:42 | XMS_ITS | Encounter Summary ---
Author Organization [facility] Address [address] [facility] [place] [address] Care Team Providers Care Biofuels Plant Operations Engineer Name Role Phone Anuradha Valencia MD Primary Care Provider [phone] Encounter Details Date Type Department Care Team (Latest Contact Info) Description 04/11/2003 Outpatient Historical [facility] Breast [place] [address] [facility] [address] [place] [address] Thong Campoverde MD NO ADDRESS ON FILE SCREENING MAMM-MAILG NEOPL-OTHER (Primary Dx) Social History Tobacco Use Types Packs/Day Years Used Date Smoking Tobacco: Never Assessed Comments Unknown Sex and Gender Information Value Date Recorded Sex Assigned at Not on file 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
--- OUTSIDE RECORDS SUMMARY | 2025-04-12 09:42 | XMS_ITS | Encounter Summary ---
Author Organization [facility] Address [address] [place] [address] Care Team Providers Care End Maker Name Role Phone Anuradha Valencia MD Primary Care Provider Encounter Details Date Type Department Care Team (Latest Contact Info) Description 02/22/2002 Outpatient Historical [facility] Gen Spec Surg [place] 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
--- OUTSIDE RECORDS SUMMARY | 2025-04-12 09:42 | XMS_ITS | Encounter Summary ---
Author Organization [employer] [facility] Address [address] [place] [address] Care Team Providers Care Electric Gas Appliances Demonstrator Name Role Phone Anuradha Valencia MD Primary Care Provider Encounter Details Date Type Department Care Team (Latest Contact Info) Description 03/23/2002 Outpatient Historical [facility] 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 Gender Identity Not on file Sexual Orientation Not on file documented as of this encounter Plan of Treatment Not on file documented as of this encounter Visit Diagnoses Diagnosis Malignant neoplasm of upper-outer quadrant of female breast (CMS/HCC)- Primary Malignant neoplasm of upper-outer quadrant of female breast documented in this encounter Care Teams Electric Gas Appliances Demonstrator Relationship Specialty Start Date End Date Anuradha Valencia MD [address] [facility] [address] [place] [address] PCP - General Family Practice 05/05/13 documented as of this encounter
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
[2025-04-12 10:06] VITALS: BP 127/63; PULSE 84; O2SAT 96
== END 2025-04-12 10:06 | disposition home or self-care (01) ==
PROVIDERS: Emergency Provider Emergency Medicine; PCP Family Medicine
DX: Z98.890 Other specified postprocedural states (principal); Z96.652 Presence of left artificial knee joint; R22.42 Localized swelling, mass and lump, left lower limb; M79.605 Pain in left leg; I10 Essential (primary) hypertension; Z85.3 Personal history of malignant neoplasm of breast
CPT/HCPCS: 93971; 99024; 99284

== ENCOUNTER 2025-04-13 13:33 | Outpatient (RCR) | payer MEDICARE, OTHER, SELFPAY | END 2025-04-13 23:59 | disposition home or self-care (01) | LOC: WPT 13:33 | PROVIDERS: PCP Family Medicine; Visit Provider Student in an Organized Health Care Education/Training Program | DX: Z47.1 Aftercare following joint replacement surgery (principal); Z96.659 Presence of unspecified artificial knee joint | CPT/HCPCS: 97110; 97112; 97162; 97530 ==